=== PATIENT | male | born 1955 | race Caucasian/White ===

== ENCOUNTER 2019-07-02 00:57 | Emergency (ER) | payer OTHER, SELFPAY ==
[2019-07-02 00:58] VITALS: BP 152/104; PULSE 125; RESP 16; TEMP 37.1; O2SAT 94; BMI 28.5
[2019-07-02 01:09] VITALS: O2SAT 82
--- NOTE | 2019-07-02 01:09 | ED.RN ---
PT PULSE OX DROPS TO 82-84% ON ROOM AIR WHEN FALLS ASLEEP. PT PLACED ON O2 2L VIA NC
--- NOTE | 2019-07-02 01:29 | ED.RN ---
THIS NURSE AND DR HIDALGO IN THE ROOM SPEAKING WITH THE PT. PT REFUSING TREATMENT.
[2019-07-02 01:53] VITALS: O2SAT 94
--- NOTE | 2019-07-02 01:53 | ED.RN ---
PT IN THE ROOM. PT CONTINUES TO REFUSE TREATMENT. PT REQUESTING TO LEAVE. PT STATES YOU KILLED MY FAMILY. I DON'T TRUST ANYONE EXCEPT [facility]. I DON'T WANT TO BE HERE. PT REMOVED FROM OXYGEN PER DR HIDALGO REQUEST
--- NOTE | 2019-07-02 01:54 | ED.DCSUM_ITS ---
History of Present Illness Chief Complaint: Confusion Informant: Patient, Family Narrative: Stated he was seen in urgent care today and diagnosed with a bronchitis. He was given doxycycline and prednisone. He has started these. He was found in a gas station parking lot sleeping in his car. He denies any complaints at this time. He did take some narcotic pain pills and seemed confused so they brought him in for evaluation. He denies any headache fevers or chills. Initially his pulse o x was below 90. Past Medical History - Allergies and Home Meds Allergies/Adverse Reactions: Allergies Unable to Assess Allergy (Verified 07/02/19 01:09) Primary Care Physician: Susie Betancourt MD [Primary Care Provider] - Prior records reviewed: Yes Past Medical History: - - Bronchitis, tobacco abuse Surgical History: noncontributory Lives: With Family Smoking Status: Current some day smoker Alcohol: None Drugs: None Review of Systems General: Denies: Chills, Fever, Sweats Eyes: Denies: Visual changes - bilaterally, Diplopia ENT: Denies: Rhinorrhea, Sore throat Cardiovascular: Denies: Chest pain, Palpitations Respiratory: Reports: Cough. Denies: Dyspnea, Dyspnea on exertion Gastrointestinal: Denies: Abdominal pain, Nausea, Vomiting, Diarrhea, Melena, Hematochezia Genitourinary: Denies: Dysuria, Hematuria, Frequency Musculoskeletal: Denies: Back pain, Extremity Pain Skin: Denies: Rash, Wounds Neurological: Denies: Headache, Weakness, Numbness Physical Exam Vital Signs/Narrative: Vital Signs Temp Pulse Resp BP Pulse Ox 07/02/19 01:53 94 07/02/19 01:09 82 07/02/19 00:58 98.7 F 125 H 16 152/104 H 94 General: Well nourished, Well developed, No Acute Distress Head: Normocephalic, Atraumatic Eyes: Perrl, EOMI ENT: Moist mucous membranes, No rhinorrhea Neck: Supple, Nontender Cardiovascular: Regular rate, Regular rhythm, No murmurs Respiratory: No distress, Chest nontender, Wheezing Abdomen: Soft, Nontender, Nondistended, Normal bowel sounds Back: Nontender, Normal Inspection Extremities: Nontender, No edema Skin: Normal color, No rash Neurological: Alert, Oriented x3, Cranial nerves II-XII grossly intact, Normal Strength, Normal Sensation Psychological: Normal affect, Normal Mood Diagnostic/Tx/Re-eval - Medical Decision Making Lab work and chest x-ray ordered. The patient does not want these. He wants to go home and continue his treatment for his asthmatic or COPD bronchitis. He understands the risk of doing so. His is here. He would like to be discharged. He was signed out AGAINST MEDICAL ADVICE. Repeat pulse ox is 94%. ED Disposition - Plan for ED Patient: Disposition: Against Medical Advice Diagnosis: COPD exacerbation Instructions: What Is COPD? Referrals: Susie Betancourt MD [Primary Care Provider] -
[2019-07-02 01:58] VITALS: BP 152/104; PULSE 125; RESP 16; TEMP 37.1; O2SAT 92
--- NOTE | 2019-07-02 02:05 | ED.RN ---
PT REFUSING ALL TREATMENT
== END 2019-07-02 02:10 | disposition left against medical advice (07) ==
PROVIDERS: Emergency Provider Emergency Medicine; Family Provider Internal Medicine; PCP Internal Medicine
DX: J44.1 Chronic obstructive pulmonary disease with (acute) exacerbation (principal); F17.200 Nicotine dependence, unspecified, uncomplicated; Z53.29 Procedure and treatment not carried out because of patient's decision for other reasons
CPT/HCPCS: 94760; 99281

== ENCOUNTER 2023-01-01 15:59 | Inpatient (IN) | payer OTHER, MEDICARE, SELFPAY ==
[2023-01-01 16:01] VITALS: BP 133/93; PULSE 121; RESP 16; TEMP 36.6; O2SAT 98
[2023-01-01 16:08] VITALS: BMI 24.4
--- NOTE | 2023-01-01 16:13 | EKG12_ITS ---
Test Reason : Blood Pressure : / mmHG Vent. Rate : 085 BPM Atrial Rate : 085 BPM P-R Int : 176 ms QRS Dur : 090 ms QT Int : 400 ms P-R-T Axes : 052 -23 052 degrees QTc Int : 476 ms Normal sinus rhythm with sinus arrhythmia Normal ECG Confirmed by DANTE FENG, NIKA ([id number]), office services associate BERTHA FELIZ ([id number]) on 01/02/2023 10:40:40 AM Referred By: Confirmed By:NIKA HOWELL MD
--- NOTE | 2023-01-01 16:18 | EDS_ITS ---
HPI History of Present Illness Chief Complaint: General Illness Detail of Chief Complaint: Stool, weakness, no p.o. intake for 1 to 2 weeks Informant: patient and spouse/S.O. Onset/Context/Timing Onset: Weeks Context: - (Uncertain) Timing: Continuous Quality: Generalized symptoms and complaints Location: Patient has apparent liver disease since he is jaundiced Current Severity: Unable to determine. Please read HPI narrative Maximum Severity: Please read HPI narrative Worsened by: Patient states he stopped drinking 1.5 weeks ago Relieved by: Nothing Associated Symptoms Associated Symptoms: Multiple generalized symptoms Narrative Narrative: Patient is a 67-year-old male who has history of hypertension. Does not know the name of his medication. does not know the name of his medicine. He did drink alcohol. He has not had a drink in 1.5 weeks. states he has not anything to eat or drink for 1 to 2 weeks. He feels weak. He endorses thirst. He endorses dry mouth. He states his urine is dark and concerned there is blood. He also reports black stool. He has been vomiting but states it is clear. He is not on an antithrombotic or anticoagulant. He does endorse bruising easily. He denies bleeding of his gums. He denies headache, visual, ocular auditory symptoms. He denies chest pain or shortness of breath. Denies orthopnea. He denies discomfort with urination. states he has been confused and not responding quickly. states he sees Dr. Betancourt every 3 months. Prior similar symptoms: No Recent Illness/Hospitalization: No [facility] Medical History Hypertension Home Medications Unobtainable 07/02/19 [History Last Taken Unknown] Allergy/AdvReac Type Severity Reaction Status Date / Time Unable to Assess Allergy Verified 07/02/19 01:09 Social History (Updated 01/01/23 @ 16:[address] Ermias Baker MD) household members: spouse Smoking Status: Current some day smoker tobacco type: cigarettes alcohol intake: current ROS ROS ED Review of Systems ROS Unobtainable: due to mental status Constitutional Constitutional ED: Reports weight loss and other Details: He is uncertain how much weight he is lost. His pants are loose and he has tightened his belt 1-2 loops ; Denies chills or fever(s) Eyes Eyes: Denies blurry vision, change in vision or diplopia ENT ENT ED: Denies ear pain, rhinorrhea or sore throat Cardiovascular Cardiovascular: Denies chest pain, orthopnea, palpitations, paroxysmal nocturnal dyspnea or racing heartbeat Respiratory/Chest Respiratory/Chest: Denies cough, dyspnea, dyspnea on exertion, orthopnea or paroxysmal nocturnal dyspnea Gastrointestinal Gastrointestinal: Reports melena, nausea and vomiting; Denies abdominal pain or constipation Genitourinary Genitourinary ED: Reports hematuria; Denies dysuria or urinary frequency Musculoskeletal Musculoskeletal: Denies arthralgias, back pain, myalgias or neck pain Integumentary Denies abscess, Abrasions or rash Neurologic Neurologic: Denies headache(s), paresthesias or weakness Psychiatric Psychiatric: Denies anxiety or depression Endocrine Endocrinology: Denies cold intolerance or heat intolerance Hematologic/Lymphatic Hematologic/Lymphatic: Reports easy bleeding and easy bruising EXAM Physical Exam Const Vital Signs: 01/01/23 16:01 01/01/23 16:08 Temperature 97.8 F Temperature Source Temporal Pulse Rate 121 H Respiratory Rate 16 Respiratory Effort Normal Non-Labored Respiratory Pattern Normal Blood Pressure 133/93 H Blood Pressure Mean 106 Pulse Ox 98 Oxygen Delivery Method Room Air Positive well developed and cachectic Constitutional Narrative: Patient is not alert or awake. He is not oriented either. Patient appears ill. Patient is jaundiced. General Appearance ED: well developed and cachectic; Negative for cyanotic, diaphoretic or NAD Nutritional Appearance: cachectic HEENT Reports dry mucous membranes HEENT Narrative: Head is atraumatic normocephalic. Ears are normal. TMs are normal. Nares patent. Posterior pharynx is normal. Mouth ED: Yes dry mucous membranes Mouth: dry mucous membranes Eyes PERRL and EOMs intact bilaterally General Eye ED: Yes pale conjunctiva and scleral icterus Neck no lymphadenopathy, supple and no JVD Chest Wall inspection of chest normal and palpation of chest normal Resp normal respiratory effort and clear to auscultation bilaterally Cardio regular rhythm, S1 normal heart sound, S2 normal heart sound and no murmurs Rate: tachycardic GI normal to inspection, nondistended, normoactive bowel sounds, non-tender, non- distended and no masses; Negative for hepatosplenomegaly GI Narrative: Stool is black and sticky Auscultation: hypoactive bowel sounds Palpation: soft Back/Spine no CVA tenderness Thoracic Spine / Upper Back: Negative for thoracic spinal tenderness Lumbar Spine / Lower Back: Negative for lumbar spinal tenderness Extremity normal to inspection Neuro No oriented x3, CN's II-XII intact bilaterally and no sensory deficits noted Sensorium / Orientation: Negative for alert Psych Mood & Affect: depressed Skin General Skin Exam: jaundice MDM MDM MDM Narrative Medical decision making narrative: Patient with liver disease. Concern he may have liver failure with coagulo diann. PT/INR was obtained. Hepatic panel was obtained. CBC was obtained to assess white count as well as H&H and platelet count. Basic metabolic panel was obtained to assess glucose, renal function and electrolytes. Since patient has melena he was typed and screened. Clinically appears dehydrated and is tachycardic and was ordered 1 L of normal saline. Patient and spouse were told he will require admission to the hospital. Patient received 80 mg of Protonix IV bolus for GI bleed. Dr. Spear who is on- call for GI was paged for consultation and the hospitalist was paged for admission. History & Record Review Discussion w/independent historian: Patient and Significant other Lab Data Attestation: I reviewed the patient's lab results. Lab results narrative: White count is slightly elevated. H&H is unremarkable. Platelet count is marli l. Differential is unremarkable. PT/INR and PTT are all elevated. Patient is not on anticoagulant. Total bili is 22.5 with a direct bili of 18.18. AST and ALT are 158 and 85 respectively. Ammonia is less than 10. Albumin is 1.6. Labs: Laboratory Results - last 24 hr 01/01/23 01/01/23 16:20 Unknown WBC 12.3 H RBC 3.87 L Hgb 13.5 Hct 38.1 L MCV 98.4 H MCH 34.9 H MCHC 35.4 RDW Std Deviation 65.4 H RDW Coeff of Marla 18.2 H Plt Count 354 MPV 10.5 Immature Gran % (Auto) 1.100 H Neut % (Auto) 83.0 H Lymph % (Auto) 7.5 L [place] % (Auto) 7.9 Eos % (Auto) 0.3 Baso % (Auto) 0.2 Absolute Neuts (auto) 10.2 H Absolute Lymphs (auto) 0.92 Nucleated RBC % 0 Differential Comment SCANNED Anisocytosis 1+ Target Cells 1+ Crenated Cell RARE PT 34.3 H INR 3.3 APTT 55.0 H Sodium 136 Potassium 3.0 L Chloride 101 Carbon Dioxide 27.0 Anion Gap 8 BUN 17 Creatinine 1.09 Estim Creat Clear Calc 62.33 Est GFR (MDRD) Af Amer 87 Est GFR (MDRD) Non-Af 72 BUN/Creatinine Ratio 15.6 Glucose 135 H Lactic Acid 2.5 H* Calcium 9.5 Total Bilirubin 22.50 H* Direct Bilirubin 18.18 H AST 158 H ALT 85 H Alkaline Phosphatase 287 H Ammonia < 10.0 L Total Protein 5.9 L Albumin 1.6 L Globulin 4.3 H Lipase < 10 L Blood Type O NEGATIVE Antibody Screen NEGATIVE Radiography Diagnostic Testing: Clinical Impression(s) from Imaging Studies Brain CT 01/01/23 17:31 IMPRESSION: No acute intracranial hemorrhage or mass effect. Electronically Signed: Billy Moore (Brooks), at 18:01 EDT Reading Location ID and State: [facility] / [place] , Service support , CT of the head was independently reviewed by me and there is no evidence of intracranial bleed i.e. subdural, epidural hematoma, traumatic subarachnoid hemorrhage or intraparenchymal contusion. Hospitalist has been repaged for admission. Will discuss appropriate unit to be admitted to. Treatment and Re-Evaluation :: Patient's history physical and laboratory studies were discussed with Dr. Spear. He agreed with Protonix and vitamin K. He also requested 1 g of Rocephin and octreotide infusion. He also requested CT of the head to assess for any brain edema. He states with acute alcoholic hepatitis the ammonia level may be misleading. Spoke with the hospitalist. Hospitalist would like the results of the CAT scan prior to admitting. If there is intracranial bleed patient will will require transfer. If there is no intracranial bleed she will admit to the hospital. Critical Care Time Critical Care Time: Yes Critical care time (excluding procedures): 30-74 minutes (33) and Including time spent: (History, physical, documentation, review of prior results, interpretation lab results initiation of therapy, consultation with GI and hosp italist) Discharge Plan Triage Chief Complaint: General Illness ED Provider: Baker,Ermias Dx/Rx/DC Orders Clinical Impression: GI bleed, Coagulopathy, Jaundice, Acute liver failure, Acute hypokalemia, Acidosis, lactic, Acute alteration in mental status, Sinus tachycardia, Hypoalbuminemia Prescriptions: No Action Unobtainable Primary Care Provider: Susie Betancourt Referrals: Susie Betancourt MD [Primary Care Provider] -
[2023-01-01] MEDS: 0.9% Normal Saline 1,000 ML 1000 ML IV (16:30)
[2023-01-01 16:40] LABS: Absolute Lymphocyte Count 0.92 X10^3/uL (0.83-4.51); Absolute Neutrophil Count 10.2 X10^3/uL (2.0-7.7); Basophil# 0.03 X10^3/uL; Basophil% 0.2 % (0-1); Eosinophil# 0.04 X10^3/uL; Eosinophils% 0.3 % (0-5); Hematocrit 38.1 % (40-54); Hemoglobin 13.5 g/dL (13.0-16.5); Lymphocyte # 0.92 X10^3/ul (0.83-4.51); Lymphocyte % 7.5 % (19-41); Mean Corp Hgb Conc 35.4 g/dL (32-36); Mean Corpuscular Hgb 34.9 pg (27.0-32.0); Mean Corpuscular Volume 98.4 fL (80-94); Mean Platelet Vol. 10.5 fl (6.2-12.0); Monocyte# 0.97 X10^3/uL; Monocyte% 7.9 % (0-10); NRBC Flagged by Analyzer 0 % (0-5); Neutrophil # 10.23 X10^3/uL (2.7-7.7); POSITIVE MORPHOLOGY YES; Platelet Count 354 K/mm3 (150-450); RBC Distribution Width CV 18.2 % (11.6-14.6); RBC Distribution Width SD 65.4 fl (35.1-43.9); Red Blood Count 3.87 M/mm3 (4.6-6.2); White Blood Count 12.3 K/mm3 (4.4-11.0)
[2023-01-01 16:48] LABS: Differential Indicated SCAN CRITERIA MET
[2023-01-01 16:54] LABS: International Normalized Ratio 3.3; Prothrombin Time (Protime)PT. 34.3 SECONDS (11.7-14.9)
[2023-01-01 17:17] LABS: Anisocytosis 1+; Crenated RBC RARE; Differential Comment SCANNED; Target Cells 1+
[2023-01-01 17:23] LABS: AST(SGOT) 158 U/L (15-37); Alanine Aminotransfer ALT/SGPT 85 U/L (16-61); Albumin, Serum 1.6 g/dL (3.2-5.0); Alkaline Phosphatase 287 U/L (45-117); Anion Gap 8 (5-15); BUN 17 mg/dL (7-18); BUN/Creat Ratio 15.6 RATIO (10-20); Bilirubin, Direct 18.18 mg/dL (0.00-0.30); Calcium,Total 9.5 mg/dL (8.5-10.1); Chloride 101 mmol/L (98-107); Creatinine, Serum 1.09 mg/dL (0.70-1.30); EST Glomerular Filtration Rate 72 mL/min (>60); Est Glom Filt Rate - Afr Amer 87 mL/min (>60); Estimated Creatinine Clearance 62.33 ml/min; Globulin 4.3 g/dL (2.2-4.2); Glucose 135 mg/dL (74-106); Lactic Acid 2.5 mmol/L (0.4-1.9); Lipase < 10 U/L (13-75); Protein, Total 5.9 g/dL (6.4-8.2); Sodium Level 136 mmol/L (136-145)
[2023-01-01 17:24] LABS: Ammonia < 10.0 umol/L (11-32)
--- NOTE | 2023-01-01 17:31 | CT_ITS ---
STUDY: CT BRAIN WITHOUT CONTRAST REASON FOR EXAM: Male, 67 years old. Lethargy, confusion RADIATION DOSAGE (If Supplied By Facility): CTDIvol = ( 44.99 ) mGy, DLP = ( 796.11 ) mGycm TECHNIQUE: Transaxial CT imaging of the brain was performed without administration of intravenous contrast material. Individualized dose optimization techniques were used for this CT. COMPARISON: No relevant priors. FINDINGS: Normal soft tissue structures. Normal calvarium. There is mild cerebral atrophy with widening of the extra-axial spaces and ventricular dilatation. Normal white matter tracts of the cerebral hemispheres. Normal basal ganglia and thalami. Normal brainstem. Normal cerebellum. There is no intracranial hemorrhage. There are no findings of an acute ischemic infarction. Normal visualized paranasal sinuses. CT/Brain/Head without Contrast IMPRESSION: No acute intracranial hemorrhage or mass effect. Electronically Signed: Billy Moore (Brooks), at 18:01 EDT ,
--- NOTE | 2023-01-01 18:01 | PCM.HP.STD ---
HPI - General General Date of Admission: 01/01/23 Date of Service: 01/01/23 Chief Complaint: Generalized weakness HPI Narrative TAYLOR JASMINE, is a 67 M who presented to emergency department [facility] on 01/01/2023 complaining of generalized weakness with decreased p.o. intake. The patient is a poor historian and his helps some but she is not a great historian either. Evidently the patient had been taking care of his aunt consistently and she about 2 months ago at which time he started drinking heavily. He is not a heavy drinker prior to this. His does not think he has had anything in about 1-1/2 to 2 weeks and the patient is adamant that he has not had anything in that time. As well. He is also not been eating or drinking and has had significant weight loss with extremely poor intake in the last 2 weeks. He states he feels extremely weak and endorses thirst and dry mouth but states he is not hungry. His urine has been very dark and he reported some black stool. He had been vomiting but there does not appear to be any blood or coffee grounds in his stool. He is not on any blood thinners and states he has a history of hypertension but is unsure of what medications he is on. He has been bruising more easily but denies any bleeding that is been significant. He denies chest pain or shortness of breath, abdominal pain however with palpation he is tender across his upper abdomen. His states that he has been confused and response times have been slow. Vital signs on presentation show a temperature of 97.8, blood pressure is 133/98, heart rate 121, blood pressure 16, oxygen saturations are 98% on room air. CBC shows a mild leukocytosis with a white count of 12.3. His hemoglobin is normal at 13.5 but he does have a macrocytosis. His platelets are normal at 354,000. He does have a left shift with an 83.0% neutrophilia. Coags are markedly abnormal with an elevated PTT at 34.3/INR 3.3/PTT 55 seconds. Chemistry panel shows hypokalemia with a potassium of 3.0. His renal function is normal. His glucose is 135. His liver enzymes are markedly abnormal with a total bilirubin of 22.5 and a direct bilirubin of 18.18. His AST is 158 and ALT is 85. His alk phos is 287. Ammonia is less than 10 and his lactic acid is 2.5. Lipase is less than 10. His urine is not consistent with infection. CT of the brain is unremarkable for any acute findings. Tylenol level is pending. Case was discussed with gastroenterology and they recommended starting him on IV Solu-Medrol for suspected alcoholic hepatitis and N-acetylcysteine for possible ischemic hepatitis, give vitamin K x1 dose and start octreotide and Protonix drips. [facility] Medical History (Updated 01/01/23 @ 19:[address] Hazel Rodas, ) Hypertension Tobacco abuse Home Medications Unobtainable 07/02/19 [History Last Taken Unknown] Allergy/AdvReac Type Severity Reaction Status Date / Time Unable to Assess Allergy Verified 07/02/19 01:09 unable to obtain unable to obtain Social History (Updated 01/01/23 @ 19:[address] Hazel Rodas, ) household members: spouse housing: house Smoking Status: Current some day smoker tobacco type: cigarettes alcohol intake: current details: 1/2 L daily up until 2 weeks ago substance use type: does not use Vital Signs Vital Signs Vital Signs: 01/01/23 16:01 01/01/23 16:08 Temperature 97.8 F Temperature Source Temporal Pulse Rate 121 H Respiratory Rate 16 Respiratory Effort Normal Non-Labored Respiratory Pattern Normal Blood Pressure 133/93 H Blood Pressure Mean 106 Pulse Ox 98 Oxygen Delivery Method Room Air Weight Weight: 70.6 kg Body Mass Index (BMI) 24.4 Physical Exam Const alert and no apparent distress; Negative for oriented x3, healthy appearing or well nourished Constitutional Narrative: Upper middle-aged, white male, sitting up in bed, markedly jaundiced, appears comfortable at this time, at bedside, patient with some intermittent confusion but is currently alert and oriented to self and place and partially to time, he told me it was 2006 when asked for what year was General Appearance: cooperative HEENT normocephalic, head/scalp atraumatic and hearing grossly normal bilaterally; Negative for moist oral mucous membranes, oropharynx normal or dentition normal HEENT Narrative: Buccal mucosa with significant jaundice, oropharynx is dry with dry lips, dentition is poor, Mallampati is 2-3 Eyes PERRL, EOMs intact bilaterally and conjunctivae normal Eyes Narrative: Positive scleral icterus Neck no lymphadenopathy, supple, no JVD and no carotid bruits Neck Narrative: Trachea midline, no thyroid enlargement Resp normal respiratory effort, no retractions, no use of accessory muscles and clear to auscultation bilaterally Resp Narrative: Diffusely diminished but clear Auscultation: Negative for rales, rhonchi or wheezes Cardio regular rate, regular rhythm, S1 normal heart sound, S2 normal heart sound, no murmurs, no rub, no gallops and no clicks GI normal to inspection, nondistended, normoactive bowel sounds and soft to palpation GI Narrative: Diffuse tenderness with being most marked in the right upper quadrant and epigastrium area Extremity no clubbing, cyanosis or edema Extremity Narrative: Pedal pulses are 2+ Skin no rashes or lesions noted, No no wounds, No skin turgor normal, No no jaundice, no petechiae and no mottling Skin Narrative: Skin tenting noted indicating abnormal turgor, patient is markedly jaundiced Neuro No oriented x3, CN's II-XII intact bilaterally and moves all extremities Neuro Narrative: Marked generalized weakness noted Sensorium / Orientation: awake, alert, oriented to person and oriented to place Speech: speech normal Psych Psych Narrative: Affect is flat however eye contact is good and patient does not appear to be depressed Results Lab / Micro Data 01/01/23 16:20 01/01/23 16:20 Labs: Laboratory Results - last 24 hr 01/01/23 16:20: WBC 12.3 H, RBC 3.87 L, Hgb 13.5, Hct 38.1 L, MCV 98.4 H, MCH 34.9 H, MCHC 35.4, RDW Std Deviation 65.4 H, RDW Coeff of Marla 18.2 H, Plt Count 354, MPV 10.5, Immature Gran % (Auto) 1.100 H, Neut % (Auto) 83.0 H, Lymph % (Auto) 7.5 L, [place] % (Auto) 7.9, Eos % (Auto) 0.3, Baso % (Auto) 0.2, Absolute Neuts (auto) 10.2 H, Absolute Lymphs (auto) 0.92, Nucleated RBC % 0, Differential Comment SCANNED, Anisocytosis 1+, Target Cells 1+, Crenated Cell RARE, PT 34.3 H, INR 3.3, APTT 55.0 H, Sodium 136, Potassium 3.0 L, Chloride 101, Carbon Dioxide 27.0, Anion Gap 8, BUN 17, Creatinine 1.09, Estim Creat Clear Calc 62.33, Est GFR (MDRD) Af Amer 87, Est GFR (MDRD) Non-Af 72, BUN/Creatinine Ratio 15.6, Glucose 135 H, Lactic Acid 2.5 H*, Calcium 9.5, Total Bilirubin 22.50 H*, Direct Bilirubin 18.18 H, AST 158 H, ALT 85 H, Alkaline Phosphatase 287 H, Total Protein 5.9 L, Albumin 1.6 L, Globulin 4.3 H, Lipase < 10 L, Blood Type O NEGATIVE, Antibody Screen NEGATIVE 01/01/23 : Ammonia < 10.0 L Assessment & Plan Assessment/Plan (1) Acidosis, lactic: (2) Acute hypokalemia: (3) Alcoholic hepatitis: (4) Coagulopathy: (5) Jaundice: (6) Sinus tachycardia: (7) Hyperbilirubinemia: (8) Alcohol abuse: PLAN: Plan Acute hepatitis -Etiology is unclear at this time -Suspect alcohol with pattern of liver enzymes and marked bilirubin elevation -Start 40 mg of Solu-Medrol daily as Madrey score is extremely high -Check Tylenol level -Check acute hepatitis panel -CT of the abdomen pelvis is pending -GI consultation Marked hyperbilirubinemia -See above Possible GI bleed -Guaiac was not able to be performed and hemoglobin is normal -Low suspicion overall however will start empiric octreotide and Protonix for now per GI discussion -Start ceftriaxone as there is some concern that he may have cirrhotic liver with possible GI bleed -If no bleeding identified can probably discontinue Lactic acidosis -Suspect related to dehydration and liver dysfunction -Mildly elevated 2.5 -IV fluids and trend Coagulopathy -INR is 3.3 -Probably multifactorial with liver and nutritional issues -Vitamin K 10 mg given in the emergency department IV -Repeat lab at 10 PM per GI instruction for INR -Repeat INR in a.m. Sinus tachycardia -Suspect related dehydration -Appears to be trending down with IV fluids -Continue to monitor on telemetry Acute hypokalemia -40 mill colons p.o. potassium given -Repeat lab in a.m. -Check a.m. magnesium level Hypertension -Reported history of hypertension -Med rec has not been completed so I am unclear what medications he is on at home and will restart as we are aware -As needed hydralazine for systolic greater than 160 Alcohol abuse -Patient is adamant that he has not had any alcohol in the last 1-1/2 weeks -We will start thiamine 200 mg p.o. twice daily -Folic acid daily -Monitor for any signs of worsening withdrawal but will hold off on any medication at this time DVT prophylaxis -SCDs -If no bleeding identified go ahead and start Lovenox CODE STATUS Full code Charges/Coding Visit Charges Inpatient E&M: 47880 Init Hosp L3
[2023-01-01] MEDS: 0.9% Normal Saline 1,000 ML 150 ML IV (18:08)
[2023-01-01 18:09] LABS: Bacteria 0 SEEN /hpf (None Seen); Mucous, Urine 0 SEEN /hpf (<or=2+); Squamous Epithelial Cells - UA 0 SEEN /hpf (0-5)
[2023-01-01 18:15] LABS: Color, Urine Yellow (Yellow); Glucose, Dipstick Normal (Normal); Ketone-Dipstick 5 mg/dl (Negative); Leukocyte Esterase-Dipstick 25 /ul (Negative); Nitrite-Dipstick Negative (Negative); Occult Blood-Urine 50 /ul (Negative); Protein-Dipstick 30 mg/dl (Negative); Specific Gravity, Urine 1.015 (1.002-1.030); Urine Clarity Sl. Cloudy (Clear); Urine Urobilinogen 8 mg/dl (Normal)
[2023-01-01 18:17] VITALS: BP 120/66; PULSE 90; RESP 19; TEMP 36.6
[2023-01-01 18:17] LABS: Urine Bilirubin Dipstick 6 mg/dL (Negative)
[2023-01-01 18:23] LABS: White Blood Cells 0-5 SEEN /hpf (0-5)
[2023-01-01 18:24] LABS: Red Blood Cells-Urine 5-10 SEEN /hpf (0-5)
[2023-01-01 18:25] LABS: Amorphous Sediment 1+; Hyaline Cast 0-5 SEEN /lpf (0-5)
[2023-01-01 18:54] VITALS: BP 120/90; PULSE 97; RESP 17; TEMP 35.8; O2SAT 94; BMI 24.3
[2023-01-01] MEDS: 0.9% Normal Saline 1,000 ML 75 ML IV (20:17)
[2023-01-01] MEDS: Potassium Chloride Oral Tablet 20 MEQ 60 MEQ PO (20:17)
[2023-01-01 20:30] LABS: Reflex Lactate? Y
[2023-01-01 20:57] LABS: Acetaminophen (Tylenol) Level < 2.0 ug/mL (10.0-30.0)
--- NOTE | 2023-01-01 21:00 | CT_ITS ---
INDICATION: acute hepatitis EXAMINATION: CT Abdomen And Pelvis W/ Contrast Injection TECHNIQUE: Helically acquired images were obtained of the abdomen and pelvis after IV contrast. A radiation dose optimization technique was used for this scan. IV Contrast dosage and agent: Oral and amp; IV Gastrografin and amp; 100mL Isovue-370 Oral contrast: None. COMPARISON: None. FINDINGS: Visualized lung bases: Bibasilar atelectasis. Liver: Diffusely hypodense consistent with fatty liver. Gallbladder: Unremarkable Spleen: Unremarkable Pancreas: Fatty atrophic changes. Adrenal Glands: Unremarkable Kidneys: Unremarkable Vasculature: Moderate aortoiliac atherosclerotic disease. GI Tract: Scattered colonic diverticula. There is mild circumferential bowel wall thickening involving most of the colon as well as a few small bowel loops. Large hiatal hernia. Lymphadenopathy: None Peritoneum: Mild volume ascites. Bladder: Unremarkable Reproductive organs: Unremarkable Bones/Soft tissues: Mild scattered degenerative changes of the visualized spine. CT/Abdomen/Pelvis WITH Contrast IMPRESSION: Findings suspicious for infectious versus inflammatory enterocolitis. Marked hepatic steatosis. Large hiatal hernia. Small volume ascites. Electronically Signed: Brian Shipman MD at 21:45 EDT ,
[2023-01-01] MEDS: cloNIDine HCl 0.1 MG Tablet PO (21:29)
[2023-01-01] MEDS: Thiamine Hydrochloride 100 MG Tablet 200 MG PO (21:29)
[2023-01-01] MEDS: Contrast Allergy Safety Check IV (21:30)
[2023-01-01 22:25] VITALS: O2SAT 94
[2023-01-01 22:51] LABS: Prothrombin Time (Protime)PT. 22.9 SECONDS (11.7-14.9)
[2023-01-01 22:58] LABS: Lactic Acid 1.6 mmol/L (0.4-1.9)
[2023-01-02] VITALS (7 sets, daily range): BP systolic 110–127; BP diastolic 80–104; PULSE 85–108; RESP 16–18; TEMP 35.7–36.7; O2SAT 86–97
[2023-01-02] MEDS: Calcium Carbonate 500 MG Tablet PO (03:53)
[2023-01-02] MEDS: oxyCODONE 5 MG Tablet 10 MG PO ×3 (04:14→19:30)
[2023-01-02] MEDS: Mag Hydrox/Al Hydrox/Simeth 30 ML UDC 15 ML PO (05:17)
[2023-01-02 05:44] LABS: Absolute Lymphocyte Count 0.66 X10^3/uL (0.83-4.51); Absolute Neutrophil Count 9.2 X10^3/uL (2.0-7.7); Basophil# 0.06 X10^3/uL; Basophil% 0.6 % (0-1); Eosinophil# 0.09 X10^3/uL; Eosinophils% 0.8 % (0-5); Hemoglobin 13.9 g/dL (13.0-16.5); Lymphocyte # 0.66 X10^3/ul (0.83-4.51); Lymphocyte % 6.1 % (19-41); Mean Corp Hgb Conc 33.1 g/dL (32-36); Mean Corpuscular Hgb 35.3 pg (27.0-32.0); Mean Corpuscular Volume 106.6 fL (80-94); Mean Platelet Vol. 10.7 fl (6.2-12.0); Monocyte# 0.58 X10^3/uL; Monocyte% 5.4 % (0-10); NRBC Flagged by Analyzer 0.2 % (0-5); Neutrophil # 9.24 X10^3/uL (2.7-7.7); Neutrophil % 85.9 % (47-70); POSITIVE MORPHOLOGY YES; Platelet Count 243 K/mm3 (150-450); RBC Distribution Width CV 18.6 % (11.6-14.6); RBC Distribution Width SD 73.3 fl (35.1-43.9); Red Blood Count 3.94 M/mm3 (4.6-6.2); White Blood Count 10.8 K/mm3 (4.4-11.0)
[2023-01-02 05:53] LABS: Differential Indicated SCAN CRITERIA MET
[2023-01-02 06:36] LABS: Anisocytosis 2+
[2023-01-02 06:38] LABS: ALB/GLOB Ratio 0.3 RATIO (0.9-2.4); AST(SGOT) 143 U/L (15-37); Alanine Aminotransfer ALT/SGPT 79 U/L (16-61); Albumin, Serum 1.4 g/dL (3.2-5.0); Alkaline Phosphatase 255 U/L (45-117); Anion Gap 8 (5-15); BUN 13 mg/dL (7-18); BUN/Creat Ratio 15.3 RATIO (10-20); Calcium,Total 8.3 mg/dL (8.5-10.1); Chloride 106 mmol/L (98-107); Creatinine, Serum 0.85 mg/dL (0.70-1.30); EST Glomerular Filtration Rate 96 mL/min (>60); Est Glom Filt Rate - Afr Amer 116 mL/min (>60); Estimated Creatinine Clearance 79.92 ml/min; Globulin 4.2 g/dL (2.2-4.2); Glucose 131 mg/dL (74-106); Magnesium 2.1 mg/dL (1.6-2.6); Phosphorus 1.2 mg/dL (2.5-4.9); Potassium 3.5 mmol/L (3.5-5.1); Protein, Total 5.6 g/dL (6.4-8.2); Sodium Level 136 mmol/L (136-145); Thyroid Stim Hormone (TSH) 1.01 uIU/mL (0.358-3.74)
[2023-01-02] MEDS: Enoxaparin 40 MG/0.4 ML Syringe SC (08:42)
[2023-01-02] MEDS: diazePAM 5 MG Tablet PO (08:42)
[2023-01-02] MEDS: Thiamine Hydrochloride 100 MG Tablet 200 MG PO ×2 (08:42→22:17)
[2023-01-02] MEDS: cloNIDine HCl 0.1 MG Tablet PO ×2 (08:42→22:17)
[2023-01-02] MEDS: Methylprednisolone Sod Succ 40 MG/ML VIAL IV (08:43)
[2023-01-02] MEDS: 0.9% Normal Saline 1,000 ML 75 ML IV ×2 (08:43→22:17)
[2023-01-02] MEDS: Folic Acid 1 MG Tablet PO (08:43)
[2023-01-02] MEDS: Metoprolol(XL)Succ 50 MG Tablet PO (08:46)
[2023-01-02] MEDS: Ensure Plus High Protein 120 ML LIQUID PO ×3 (08:46→22:17)
[2023-01-02] MEDS: amLODIPine 5 MG Tablet PO (08:47)
[2023-01-02] MEDS: Ceftriaxone 1 GM/50 ML BAG IV (08:47)
--- NOTE | 2023-01-02 09:58 | PN.HOSP_ITS ---
Subjective Subjective Feels little bit improved but otherwise he is much the same as when he came in no issues overnight. Objective Data Objective Data Vital Signs: Vital Signs Temp Pulse Resp BP Pulse Ox O2 Del Method 97.9 F 108 H 16 127/104 H 94 Room Air 01/02/23 08:39 01/02/23 08:46 01/02/23 08:39 01/02/23 08:46 01/02/23 08:39 01/02/23 09:06 Oxygen Delivery Method Room Air Weight: 155 lb 6.814 oz Body Mass Index (BMI) 24.3 Intake & Output: Intake and Output for Last 24 Hours 01/01/23 01/02/23 01/03/23 03:59 03:59 03:59 Intake Total 2339 / 2339 1032.5 / 1032.5 Balance 2339 / 2339 1032.5 / 1032.5 Lab / Micro Data 01/02/23 05:25 01/02/23 05:25 Labs: Laboratory Results - last 24 hr 01/01/23 16:20: WBC 12.3 H, RBC 3.87 L, Hgb 13.5, Hct 38.1 L, MCV 98.4 H, MCH 34.9 H, MCHC 35.4, RDW Std Deviation 65.4 H, RDW Coeff of Marla 18.2 H, Plt Count 354, MPV 10.5, Immature Gran % (Auto) 1.100 H, Neut % (Auto) 83.0 H, Lymph % (Auto) 7.5 L, [place] % (Auto) 7.9, Eos % (Auto) 0.3, Baso % (Auto) 0.2, Absolute Neuts (auto) 10.2 H, Absolute Lymphs (auto) 0.92, Nucleated RBC % 0, Differential Comment SCANNED, Anisocytosis 1+, Target Cells 1+, Crenated Cell RARE, PT 34.3 H, INR 3.3, APTT 55.0 H, Sodium 136, Potassium 3.0 L, Chloride 101, Carbon Dioxide 27.0, Anion Gap 8, BUN 17, Creatinine 1.09, Estim Creat Clear Calc 62.33, Est GFR (MDRD) Af Amer 87, Est GFR (MDRD) Non-Af 72, BUN/Creatinine Ratio 15.6, Glucose 135 H, Lactic Acid 2.5 H*, Calcium 9.5, Total Bilirubin 22.50 H*, Direct Bilirubin 18.18 H, AST 158 H, ALT 85 H, Alkaline Phosphatase 287 H, Total Protein 5.9 L, Albumin 1.6 L, Globulin 4.3 H, Lipase < 10 L, Acetaminophen < 2.0 L, Blood Type O NEGATIVE, Antibody Screen NEGATIVE 01/01/23 18:00: Urine Color Yellow, Urine Clarity Sl. Cloudy, Urine pH 8.0, Ur Specific [place] 1.015, Urine Protein 30 H, Urine Glucose (UA) Normal, Urine Ketones 5 H, Urine Occult Blood 50 H, Urine Nitrite Negative, Urine Bilirubin 6 H, Urine Urobilinogen 8 H, Ur Leukocyte Esterase 25 H, Urine RBC 5-10 SEEN, Urine WBC 0-5 SEEN, Ur Squamous Epith Cells 0 SEEN, Amorphous Sediment 1+, Urine Bacteria 0 SEEN, Hyaline Casts 0-5 SEEN, Urine Mucus 0 SEEN 01/01/23 22:07: PT 22.9 H, INR 2.0, Lactic Acid 1.6 01/01/23 : Ammonia < 10.0 L 01/02/23 05:25: WBC 10.8, RBC 3.94 L, Hgb 13.9, Hct 42.0, MCV 106.6 H D, MCH 35.3 H, MCHC 33.1 D, RDW Std Deviation 73.3 H, RDW Coeff of Marla 18.6 H, Plt Count 243, MPV 10.7, Immature Gran % (Auto) 1.200 H, Neut % (Auto) 85.9 H, Lymph % (Auto) 6.1 L, [place] % (Auto) 5.4, Eos % (Auto) 0.8, Baso % (Auto) 0.6, Absolute Neuts (auto) 9.2 H, Absolute Lymphs (auto) 0.66 L, Nucleated RBC % 0.2, Anisocytosis 2+, Sodium 136, Potassium 3.5, Chloride 106, Carbon Dioxide 22.0, Anion Gap 8, BUN 13, Creatinine 0.85, Estim Creat Clear Calc 79.92, Est GFR (MDRD) Af Amer 116, Est GFR (MDRD) Non-Af 96, BUN/Creatinine Ratio 15.3, Glucose 131 H, Calcium 8.3 L, Phosphorus 1.2 L, Magnesium 2.1, Total Bilirubin 22.50 H*, AST 143 H, ALT 79 H, Alkaline Phosphatase 255 H, Total Protein 5.6 L, Albumin 1.4 L, Globulin 4.2, Albumin/Globulin Ratio 0.3 L, TSH 1.01 Radiography Diagnostic Testing: Radiology Impression Brain CT 01/01/23 17:31 IMPRESSION: No acute intracranial hemorrhage or mass effect. Electronically Signed: Billy Moore (Brooks), at 18:01 EDT , Abdomen/Pelvis CT 01/01/23 21:00 IMPRESSION: Findings suspicious for infectious versus inflammatory enterocolitis. Marked hepatic steatosis. Large hiatal hernia. Small volume ascites. Electronically Signed: Brian Shipman MD at 21:45 EDT , Physical Exam Narrative General: Alert, Oriented x2, Cooperative, No apparent distress HEENT: Atraumatic, PERRLA, EOMI, Normocephalic, scleral icterus Oral: Moist Mucosa Neck: Supple, No JVD Lungs: Diminished, normal air movement, No rhonchi, No wheeze, No rales Cardiovascular: Regular rate, Regular Rhythm, Normal S1, Normal S2, No murmurs Abdomen: Soft, Non Tender, Non-Distended, No Hepato-splenomegaly Extremities: No edema, Capillary Refill Less than 3 Seconds Skin: Jaundiced Musculoskeletal: No Tenderness to Palpation of Joints or Extremities Neurological: Cranial nerves II-XII grossly intact, Motor Exam 5/5 strength throughout, Sensory exam intact to light touch and pain Psych/Mental Status: Flat Assessment & Plan Assessment/Plan (1) Acidosis, lactic: (2) Acute hypokalemia: (3) Alcoholic hepatitis: (4) Coagulopathy: (5) Jaundice: (6) Sinus tachycardia: (7) Hyperbilirubinemia: (8) Alcohol abuse: PLAN: Plan 1. Acute alcoholic hepatitis with elevated hyperbilirubinemia with elevated INR despite being not being on Coumadin ? His last alcohol use was about a week and a half ago ? Bilirubin is elevated to 22 and his LFTs are elevated ? We will consult gastroenterology ? His Maddrey's discrimination function is 68, continue with acetylcysteine, octreotide, steroids ? MELD score is 26 with a 20% 3-month mortality ? Continue with PPI ? If he needs anything for anxiety can use lorazepam 2. HTN ? Blood pressure stable ? Continue with his home blood pressure medications DVT: SCDs Charges/Coding Visit Charges Inpatient E&M: 67583 Subs Hosp L2
--- NOTE | 2023-01-02 10:20 | CASEMGMT ---
RN CECY Face to Face with patient for initial transition planning/care coordination assessment. RN CM introduced self and role at [facility]. Patient lying in bed, alert and oriented. Patient willing to participate in assessment and is able to answer all questions appropriately. Care providers, pharmacy, and demographics verified. Patient wishes to discharge home, denies need for home health at this time. Patient states he has no further needs or concerns at this time. CM to follow for discharge planning needs that may arise. PCP: Serafin Specialists: none Preferred Pharmacy: [facility] Insurance: [employer] Prescription Benefit: yes Living Will/HPOA: none LNOK: Living Arrangements: Patient lives with in a single story home with no steps to enter. Patient is independent at home. Transportation: self, DME/HHC: Patient has shower chair, cane, walker, grab bars. No previous HHC or SNF. Patient states he drinks 3/4 of a pint daily of liquor. Patient denied resources. Disposition Plan: Patient to discharge home with family support and follow-up plans in place. Naheed REYNOSO, RN, CM
[2023-01-02] MEDS: LORazepam 1 MG Tablet PO (17:37)
[2023-01-02] MEDS: 0.9% Saline Lock 10 ML Syringe IV (17:41)
--- NOTE | 2023-01-02 18:47 | CON.PCM.GI_ITS ---
HPI Consult Data Date of Consult: 01/01/23 HPI Narrative Reason for Consultation: Hepatitis HPI Narrative: TAYLOR JASMINE, is a 67 M who presented to emergency department [facility] on 01/01/2023 complaining of generalized weakness with decreased p.o. intake. The patient is a poor historian and his helps some but she is not a great historian either. As per his , the patient had been taking care of his aunt consistently and she about 2 months ago at which time he started drinking heavily. He is not a heavy drinker prior to this. His does not think he has had anything in about 1-1/2 to 2 weeks and the patient is adamant that he has not had anything in that time. He is also not been eating or drinking and has had significant weight loss with extremely poor intake in the last 2 weeks. He states he feels extremely weak and endorses thirst and dry mouth but states he is not hungry. His urine has been very dark and he reported some black stool. He had been vomiting but there does not appear to be any blood or coffee grounds in his stool. He is not on any blood thinners and states he has a history of hypertension but is unsure of what medications he is on. He has been bruising more easily but denies any bleeding that is been significant. Vital signs are normal except for tachycardia. CBC shows a mild leukocytosis with a white count of 12.3. His hemoglobin is normal at 13.5 but he does have a macrocytosis. His platelets are normal at 354,000. Coagulation cascade are markedly abnormal with an elevated PTT at 34.3/INR 3.3/PTT 55 seconds. Chemistry panel shows hypokalemia with a potassium of 3.0. His renal function is normal. His glucose is 135. His liver enzymes are markedly abnormal with a total bilirubin of 22.5 and a direct bilirubin of 18.18. His AST is 158 and ALT is 85. His alk phos is 287. Ammonia is less than 10 and his lactic acid is 2.5. Lipase is less than 10. His urine is not consistent with infection. CT of the brain is unremarkable for any acute findings. Tylenol level is pending. I recommended starting him on IV Solu-Medrol for suspected alcoholic hepatitis and N-acetylcysteine for possible ischemic hepatitis, give vitamin K x1 dose and start octreotide and Protonix drips. [facility] Medical History (Updated 01/01/23 @ 19:[address] Hazel Rodas, DO) Hypertension Tobacco abuse Home Medications alprazolam 1 mg tablet 1 mg PO QHS anxiety 01/01/23 [History Last Taken Unknown] amlodipine 2.5 mg tablet 2.5 mg PO DAILY blood pressure 01/01/23 [History Last Taken Unknown] clonidine HCl 0.1 mg tablet 0.1 mg PO DAILY PRN PRN Hypertension 01/01/23 [History Last Taken Unknown] diazepam 5 mg tablet 5 mg PO DAILY PRN PRN ANXIETY 01/01/23 [History Last Taken Unknown] tramadol 50 mg tablet 100 mg PO Q8H PRN pain 01/01/23 [History Last Taken Unknown] Allergy/AdvReac Type Severity Reaction Status Date / Time bupropion [From Wellbutrin] Allergy Intermediate mental Verified 01/02/23 14:33 status change/memory problems diclofenac Allergy Mild Rash Verified 01/02/23 14:33 gabapentin AdvReac Mild mouth Verified 01/02/23 14:33 iritation and burning sensation lansoprazole [From Prevacid] AdvReac Mild Diarrhea Verified 01/02/23 14:33 clindamycin AdvReac thrush oral Verified 01/02/23 14:33 fentanyl AdvReac Other Verified 01/02/23 14:33 NSAIDS (Non-Steroidal AdvReac Diarrhea Verified 01/02/23 14:33 Anti-Inflamma Family History unable to obtain Surgical History unable to obtain Social History (Updated 01/01/23 @ 19:[address] Hazel Rodas, DO) household members: spouse housing: house Smoking Status: Current some day smoker tobacco type: cigarettes alcohol intake: current details: 1/2 L daily up until 2 weeks ago substance use type: does not use ROS Review of Systems ROS Unobtainable: other Constitutional Constitutional: Denies fatigue, fever(s), poor appetite, weight gain or weight loss ENT HEENT: Denies mouth lesions Cardiovascular Cardiovascular: Denies abdominal bloating, abdominal edema or abdominal pain Respiratory/Chest Respiratory/Chest: Denies change in mental status, change in phlegm color, chest congestion or chest tightness Gastrointestinal Gastrointestinal: Denies belching, bloating, change in bowel habits, change in stool character, chewing difficulty, coffee ground emesis, constipation, cramping, diarrhea, dyspepsia, dysphagia, early satiety, excessive flatus, fecal incontinence, heartburn, hematemesis, hematochezia, hemorrhoids, loose stools, melena, nausea, odynophagia, rectal bleeding, tenesmus, vomiting or weight changes Genitourinary Genitourinary: Denies abdominal discomfort, burning urination or itching Musculoskeletal Musculoskeletal: Reports as per HPI; Denies muscle weakness or myalgias Integumentary Integumentary: Denies jaundice Neurologic Neurologic: Denies lack of coordination or weakness Psychiatric Psychiatric: Denies confusion, depression, memory loss, mood swings, paranoia or suicidal ideation Endocrine Endocrinology: Denies systems reviewed and no addt'l complaints, except as documented Hematologic/Lymphatic Hematologic/Lymphatic: Denies anemia, easy bleeding, easy bruising or lymphadenopathy Allergic/Immunologic Allergic/Immunologic: Denies systems reviewed and no addt'l complaints, except as documented Physical Exam Narrative General: Alert, Oriented x2, Cooperative, No apparent distress HEENT: Atraumatic, PERRLA, EOMI, Normocephalic, scleral icterus Oral: Moist Mucosa Neck: Supple, No JVD Lungs: Diminished, normal air movement, No rhonchi, No wheeze, No rales Cardiovascular: Regular rate, Regular Rhythm, Normal S1, Normal S2, No murmurs Abdomen: Soft, Non Tender, Non-Distended, No Hepato-splenomegaly Extremities: No edema, Capillary Refill Less than 3 Seconds Skin: Jaundiced Musculoskeletal: No Tenderness to Palpation of Joints or Extremities Neurological: Cranial nerves II-XII grossly intact, Motor Exam 5/5 strength throughout, Sensory exam intact to light touch and pain Psych/Mental Status: Flat Lab / Micro Data 01/02/23 05:25 01/02/23 05:25 Labs: Laboratory Results - last 24 hr 01/01/23 16:20: Acetaminophen < 2.0 L 01/01/23 22:07: PT 22.9 H, INR 2.0, Lactic Acid 1.6 01/02/23 05:25: WBC 10.8, RBC 3.94 L, Hgb 13.9, Hct 42.0, MCV 106.6 H D, MCH 35.3 H, MCHC 33.1 D, RDW Std Deviation 73.3 H, RDW Coeff of Marla 18.6 H, Plt Count 243, MPV 10.7, Immature Gran % (Auto) 1.200 H, Neut % (Auto) 85.9 H, Lymph % (Auto) 6.1 L, [place] % (Auto) 5.4, Eos % (Auto) 0.8, Baso % (Auto) 0.6, Absolute Neuts (auto) 9.2 H, Absolute Lymphs (auto) 0.66 L, Nucleated RBC % 0.2, Anisocytosis 2+, Sodium 136, Potassium 3.5, Chloride 106, Carbon Dioxide 22.0, Anion Gap 8, BUN 13, Creatinine 0.85, Estim Creat Clear Calc 79.92, Est GFR (MDRD) Af Amer 116, Est GFR (MDRD) Non-Af 96, BUN/Creatinine Ratio 15.3, Glucose 131 H, Calcium 8.3 L, Phosphorus 1.2 L, Magnesium 2.1, Total Bilirubin 22.50 H*, AST 143 H, ALT 79 H, Alkaline Phosphatase 255 H, Total Protein 5.6 L, Albumin 1.4 L, Globulin 4.2, Albumin/Globulin Ratio 0.3 L, TSH 1.01 Radiology Impression Abdomen/Pelvis CT 01/01/23 21:00 IMPRESSION: Findings suspicious for infectious versus inflammatory enterocolitis. Marked hepatic steatosis. Large hiatal hernia. Small volume ascites. Electronically Signed: Brian Shipman MD at 21:45 EDT , Assessment & Plan Assessment/Plan (1) Acidosis, lactic: (2) Acute hypokalemia: (3) Alcoholic hepatitis: (4) Coagulopathy: (5) Jaundice: (6) Sinus tachycardia: (7) Hyperbilirubinemia: (8) Alcohol abuse: PLAN: Plan 67-year-old with severe cholestatic hepatitis secondary to alcoholic hepatitis. -He has a high Madrey score of 52 and has altered mental status -Start 40 mg of Solu-Medrol daily as Madrey score is extremely high -Check Tylenol level -Check acute hepatitis panel -CT of the abdomen pelvis is pending -After 4 days we will check his Anyi score to see if we will continue on steroids Marked hyperbilirubinemia -See above Possible GI bleed -His hemoglobin seems to be stable. Continue to monitor. I suspect he did have some dark stools that was secondary to alcoholic gastritis and possibly portal gastropathy or portal hypertension Coagulopathy -INR is 3.3 -Probably multifactorial with liver and nutritional issues -Vitamin K 10 mg given in the emergency department IV -I will give another 5 mg dose of vitamin K -Repeat INR in a.m. Guarded prognosis Charges/Coding Visit Charges Inpatient E&M: 15372 Init Hosp L3
[2023-01-03] VITALS (8 sets, daily range): BP systolic 85–121; BP diastolic 62–89; PULSE 61–90; RESP 14–18; TEMP 35.7–36.6; O2SAT 91–98
[2023-01-03] MEDS: oxyCODONE 5 MG Tablet 10 MG PO ×2 (01:58→15:29)
[2023-01-03 06:42] LABS: Absolute Lymphocyte Count 1.04 X10^3/uL (0.83-4.51); Absolute Neutrophil Count 12.5 X10^3/uL (2.0-7.7); Basophil# 0.02 X10^3/uL; Basophil% 0.1 % (0-1); Eosinophil# 0.01 X10^3/uL; Eosinophils% 0.1 % (0-5); Hematocrit 31.9 % (40-54); Hemoglobin 11.3 g/dL (13.0-16.5); Lymphocyte # 1.04 X10^3/ul (0.83-4.51); Lymphocyte % 7.1 % (19-41); Mean Corp Hgb Conc 35.4 g/dL (32-36); Mean Corpuscular Hgb 35.2 pg (27.0-32.0); Mean Corpuscular Volume 99.4 fL (80-94); Mean Platelet Vol. 11.2 fl (6.2-12.0); Monocyte% 6.1 % (0-10); NRBC Flagged by Analyzer 0.2 % (0-5); Neutrophil % 85.3 % (47-70); Platelet Count 262 K/mm3 (150-450); RBC Distribution Width CV 17.7 % (11.6-14.6); RBC Distribution Width SD 63.9 fl (35.1-43.9); Red Blood Count 3.21 M/mm3 (4.6-6.2); White Blood Count 14.7 K/mm3 (4.4-11.0)
[2023-01-03 07:36] LABS: ALB/GLOB Ratio 0.4 RATIO (0.9-2.4); AST(SGOT) 126 U/L (15-37); Alanine Aminotransfer ALT/SGPT 74 U/L (16-61); Albumin, Serum 1.3 g/dL (3.2-5.0); Alkaline Phosphatase 202 U/L (45-117); Anion Gap 7 (5-15); BUN 15 mg/dL (7-18); BUN/Creat Ratio 16.8 RATIO (10-20); Calcium,Total 8.3 mg/dL (8.5-10.1); Chloride 108 mmol/L (98-107); Creatinine, Serum 0.89 mg/dL (0.70-1.30); EST Glomerular Filtration Rate 90 mL/min (>60); Est Glom Filt Rate - Afr Amer 109 mL/min (>60); Estimated Creatinine Clearance 76.33 ml/min; Globulin 3.6 g/dL (2.2-4.2); Glucose 126 mg/dL (74-106); Potassium 3.5 mmol/L (3.5-5.1); Protein, Total 4.9 g/dL (6.4-8.2); Sodium Level 138 mmol/L (136-145)
[2023-01-03 08:15] LABS: International Normalized Ratio 1.3; Prothrombin Time (Protime)PT. 15.7 SECONDS (11.7-14.9)
[2023-01-03 10:09] LABS: HEPATITIS B SURFACE AG Negative (Negative); Hep C Antibodies Non Reactive (Non Reactive); Hepatitis A IgM Antibody Negative (Negative); Hepatitis B Core AB IgM Negative (Negative)
[2023-01-03] MEDS: Thiamine Hydrochloride 100 MG Tablet 200 MG PO ×2 (10:11→21:54)
[2023-01-03] MEDS: Folic Acid 1 MG Tablet PO (10:12)
[2023-01-03] MEDS: cloNIDine HCl 0.1 MG Tablet PO ×2 (10:12→21:54)
[2023-01-03] MEDS: Metoprolol(XL)Succ 50 MG Tablet PO (10:12)
[2023-01-03] MEDS: Methylprednisolone Sod Succ 40 MG/ML VIAL IV (10:12)
[2023-01-03] MEDS: amLODIPine 5 MG Tablet PO (10:13)
[2023-01-03] MEDS: LORazepam 1 MG Tablet PO ×2 (10:40→21:54)
[2023-01-03] MEDS: Ceftriaxone 1 GM/50 ML BAG IV (10:40)
[2023-01-03] MEDS: 0.9% Normal Saline 1,000 ML 75 ML IV (11:24)
--- NOTE | 2023-01-03 11:29 | PCM.PN.HOSP ---
Subjective Subjective Feels a little bit better. Bilirubin is improving, no issues overnight Objective Data Objective Data Vital Signs: Vital Signs Temp Pulse Resp BP Pulse Ox O2 Del Method O2 Flow Rate 97.1 F L 88 14 120/78 92 Room Air 2 01/03/23 09:14 01/03/23 10:12 01/03/23 09:14 01/03/23 10:12 01/03/23 09:14 01/03/23 09:14 01/03/23 07:16 Oxygen Flow Rate (L/min) 2 Oxygen Delivery Method Room Air Weight: 155 lb 6.814 oz Body Mass Index (BMI) 24.3 Intake & Output: Intake and Output for Last 24 Hours 01/02/23 01/03/23 01/04/23 03:59 03:59 03:59 Intake Total 2339 / 2339 4065.49 / 4065.49 1033.75 / 1033.75 Balance 2339 / 2339 4065.49 / 4065.49 1033.75 / 1033.75 Lab / Micro Data 01/03/23 05:33 01/03/23 05:33 Labs: Laboratory Results - last 24 hr 01/01/23 22:07: Hepatitis A IgM Ab Negative, Hep Bs Antigen Negative, Hep B Core IgM Ab Negative, Hepatitis C Ab (EIA) Non Reactive, Hep C Ab Comment Comment 01/03/23 05:33: WBC 14.7 H, RBC 3.21 L, Hgb 11.3 L, Hct 31.9 L, MCV 99.4 H D, MCH 35.2 H, MCHC 35.4 D, RDW Std Deviation 63.9 H, RDW Coeff of Marla 17.7 H, Plt Count 262, MPV 11.2, Immature Gran % (Auto) 1.300 H, Neut % (Auto) 85.3 H, Lymph % (Auto) 7.1 L, [place] % (Auto) 6.1, Eos % (Auto) 0.1, Baso % (Auto) 0.1, Absolute Neuts (auto) 12.5 H, Absolute Lymphs (auto) 1.04, Nucleated RBC % 0.2, Sodium 138, Potassium 3.5, Chloride 108 H, Carbon Dioxide 23.0, Anion Gap 7, BUN 15, Creatinine 0.89, Estim Creat Clear Calc 76.33, Est GFR (MDRD) Af Amer 109, Est GFR (MDRD) Non-Af 90, BUN/Creatinine Ratio 16.8, Glucose 126 H, Calcium 8.3 L, Total Bilirubin 18.40 H*, AST 126 H, ALT 74 H, Alkaline Phosphatase 202 H, Total Protein 4.9 L, Albumin 1.3 L, Globulin 3.6, Albumin/Globulin Ratio 0.4 L 01/03/23 06:51: PT 15.7 H, INR 1.3 Physical Exam Narrative General: Alert, Oriented x2, Cooperative, No apparent distress HEENT: Atraumatic, PERRLA, EOMI, Normocephalic, scleral icterus Oral: Moist Mucosa Neck: Supple, No JVD Lungs: Diminished, normal air movement, No rhonchi, No wheeze, No rales Cardiovascular: Regular rate, Regular Rhythm, Normal S1, Normal S2, No murmurs Abdomen: Soft, Non Tender, Non-Distended, No Hepato-splenomegaly Extremities: No edema, Capillary Refill Less than 3 Seconds Skin: Jaundiced Musculoskeletal: No Tenderness to Palpation of Joints or Extremities Neurological: Cranial nerves II-XII grossly intact, Motor Exam 5/5 strength throughout, Sensory exam intact to light touch and pain Psych/Mental Status: Flat Assessment & Plan Assessment/Plan (1) Acidosis, lactic: (2) Acute hypokalemia: (3) Alcoholic hepatitis: (4) Coagulopathy: (5) Jaundice: (6) Sinus tachycardia: (7) Hyperbilirubinemia: (8) Alcohol abuse: PLAN: Plan 1. Acute alcoholic hepatitis with elevated hyperbilirubinemia with elevated INR despite being not being on Coumadin ? His last alcohol use was about a week and a half ago ? Bilirubin is elevated to 22 and his LFTs are elevated ?Appreciate gastroenterology's assistance ? His Abhaydrcristine's discrimination function is 68, continue with acetylcysteine, octreotide, steroids ? MELD score is 26 with a 20% 3-month mortality ? Continue with PPI ? If he needs anything for anxiety can use lorazepam ? He did receive a dose of vitamin K yesterday his INR today is 1.3 and continue with Rocephin for SBP prophylaxis 2. HTN ? Blood pressure stable ? Continue with his home blood pressure medications DVT: SCDs Charges/Coding Visit Charges Inpatient E&M: 22353 Subs Hosp L2
--- NOTE | 2023-01-03 17:41 | PN.GI_ITS ---
Subjective Subjective Patient is more alert and awake today. He seems to be in better spirits today. Objective Data Objective Data Vital Signs: Vital Signs Temp Pulse Resp BP Pulse Ox O2 Del Method O2 Flow Rate 97.1 F L 62 16 98/79 97 Room Air 2 01/03/23 15:10 01/03/23 15:10 01/03/23 15:10 01/03/23 15:10 01/03/23 15:10 01/03/23 15:10 01/03/23 07:16 Oxygen Flow Rate (L/min) 2 Oxygen Delivery Method Room Air Weight: 155 lb 6.814 oz Body Mass Index (BMI) 24.3 Intake & Output: Intake and Output for Last 24 Hours 01/01/23 01/02/23 01/03/23 23:59 23:59 23:59 Intake Total 1339 / 1339 4966.82 / 4966.82 1483.42 / 1483.42 Balance 1339 / 1339 4966.82 / 4966.82 1483.42 / 1483.42 Lab / Micro Data 01/03/23 05:33 01/03/23 05:33 Labs: Laboratory Results - last 24 hr 01/01/23 22:07: Hepatitis A IgM Ab Negative, Hep Bs Antigen Negative, Hep B Core IgM Ab Negative, Hepatitis C Ab (EIA) Non Reactive, Hep C Ab Comment Comment 01/03/23 05:33: WBC 14.7 H, RBC 3.21 L, Hgb 11.3 L, Hct 31.9 L, MCV 99.4 H D, MCH 35.2 H, MCHC 35.4 D, RDW Std Deviation 63.9 H, RDW Coeff of Marla 17.7 H, Plt Count 262, MPV 11.2, Immature Gran % (Auto) 1.300 H, Neut % (Auto) 85.3 H, Lymph % (Auto) 7.1 L, [place] % (Auto) 6.1, Eos % (Auto) 0.1, Baso % (Auto) 0.1, Absolute Neuts (auto) 12.5 H, Absolute Lymphs (auto) 1.04, Nucleated RBC % 0.2, Sodium 138, Potassium 3.5, Chloride 108 H, Carbon Dioxide 23.0, Anion Gap 7, BUN 15, Creatinine 0.89, Estim Creat Clear Calc 76.33, Est GFR (MDRD) Af Amer 109, Est GFR (MDRD) Non-Af 90, BUN/Creatinine Ratio 16.8, Glucose 126 H, Calcium 8.3 L, Total Bilirubin 18.40 H*, AST 126 H, ALT 74 H, Alkaline Phosphatase 202 H, Total Protein 4.9 L, Albumin 1.3 L, Globulin 3.6, Albumin/Globulin Ratio 0.4 L 01/03/23 06:51: PT 15.7 H, INR 1.3 Physical Exam Narrative General: Alert, Oriented x2, Cooperative, No apparent distress HEENT: Atraumatic, PERRLA, EOMI, Normocephalic, scleral icterus Oral: Moist Mucosa Neck: Supple, No JVD Lungs: Diminished, normal air movement, No rhonchi, No wheeze, No rales Cardiovascular: Regular rate, Regular Rhythm, Normal S1, Normal S2, No murmurs Abdomen: Soft, Non Tender, Non-Distended, No Hepato-splenomegaly Extremities: No edema, Capillary Refill Less than 3 Seconds Skin: Jaundiced Musculoskeletal: No Tenderness to Palpation of Joints or Extremities Neurological: Cranial nerves II-XII grossly intact, Motor Exam 5/5 strength throughout, Sensory exam intact to light touch and pain Psych/Mental Status: Flat Assessment & Plan Assessment/Plan (1) Acidosis, lactic: (2) Acute hypokalemia: (3) Alcoholic hepatitis: (4) Coagulopathy: (5) Jaundice: (6) Sinus tachycardia: (7) Hyperbilirubinemia: (8) Alcohol abuse: PLAN: Plan 1. Acute alcoholic hepatitis with elevated hyperbilirubinemia with elevated INR despite being not being on Coumadin ? His last alcohol use was about a week and a half ago ? Bilirubin is elevated to 22 and his LFTs are elevated ?Appreciate gastroenterology's assistance ? His Maddrey's discrimination function is 68, continue with acetylcysteine, octreotide, steroids ? MELD score is 26 with a 20% 3-month mortality ? Continue with PPI 2. HTN ? Blood pressure stable ? Continue with his home blood pressure medications 01/03: His LFTs are improving with steroid therapy. He will need to calculate a Anyi score on day 5 to see if he will benefit from steroids for 30 days. I gave him another dose of vitamin K yesterday It decrease his INR down to 1.3. He is still on antibiotics and doing well. Autoimmune labs are pending. Continue current work-up. DVT: SCDs
[2023-01-03] MEDS: Mag Hydrox/Al Hydrox/Simeth 30 ML UDC 15 ML PO (20:35)
[2023-01-04] MEDS: oxyCODONE 5 MG Tablet 10 MG PO (01:16)
[2023-01-04 06:29] LABS: Absolute Lymphocyte Count 1.12 X10^3/uL (0.83-4.51); Basophil# 0.03 X10^3/uL; Basophil% 0.2 % (0-1); Eosinophil# 0.02 X10^3/uL; Eosinophils% 0.2 % (0-5); Hematocrit 29.5 % (40-54); Lymphocyte # 1.12 X10^3/ul (0.83-4.51); Lymphocyte % 9.1 % (19-41); Mean Corp Hgb Conc 33.9 g/dL (32-36); Mean Corpuscular Hgb 35.1 pg (27.0-32.0); Mean Corpuscular Volume 103.5 fL (80-94); Mean Platelet Vol. 11.7 fl (6.2-12.0); Monocyte# 0.84 X10^3/uL; Monocyte% 6.9 % (0-10); NRBC Flagged by Analyzer 0.2 % (0-5); Neutrophil # 10.01 X10^3/uL (2.7-7.7); Neutrophil % 81.6 % (47-70); POSITIVE MORPHOLOGY YES; Platelet Count 273 K/mm3 (150-450); RBC Distribution Width SD 67.9 fl (35.1-43.9); Red Blood Count 2.85 M/mm3 (4.6-6.2); White Blood Count 12.3 K/mm3 (4.4-11.0)
[2023-01-04] MEDS: Ensure Plus High Protein 120 ML LIQUID PO ×2 (06:42→21:31)
[2023-01-04] MEDS: LORazepam 1 MG Tablet PO (06:42)
[2023-01-04 06:43] VITALS: BP 96/64; PULSE 60; RESP 18; TEMP 36.2; O2SAT 90
[2023-01-04] MEDS: 0.9% Saline Lock 10 ML Syringe IV ×2 (06:43→21:31)
[2023-01-04 06:50] LABS: Differential Indicated SCAN CRITERIA MET
[2023-01-04 07:09] VITALS: O2SAT 94
[2023-01-04 07:20] LABS: ALB/GLOB Ratio 0.4 RATIO (0.9-2.4); AST(SGOT) 107 U/L (15-37); Alanine Aminotransfer ALT/SGPT 68 U/L (16-61); Albumin, Serum 1.2 g/dL (3.2-5.0); Alkaline Phosphatase 177 U/L (45-117); Anion Gap 5 (5-15); BUN 19 mg/dL (7-18); BUN/Creat Ratio 19.7 RATIO (10-20); Calcium,Total 8.1 mg/dL (8.5-10.1); Chloride 107 mmol/L (98-107); Creatinine, Serum 0.97 mg/dL (0.70-1.30); EST Glomerular Filtration Rate 83 mL/min (>60); Est Glom Filt Rate - Afr Amer 100 mL/min (>60); Estimated Creatinine Clearance 70.04 ml/min; Globulin 3.3 g/dL (2.2-4.2); Glucose 135 mg/dL (74-106); Potassium 3.4 mmol/L (3.5-5.1); Protein, Total 4.5 g/dL (6.4-8.2); Sodium Level 137 mmol/L (136-145)
[2023-01-04] MEDS: Folic Acid 1 MG Tablet PO (08:20)
[2023-01-04] MEDS: Methylprednisolone Sod Succ 40 MG/ML VIAL IV (08:26)
[2023-01-04] MEDS: cloNIDine HCl 0.1 MG Tablet PO (08:30)
[2023-01-04 08:32] VITALS: PULSE 76
[2023-01-04] MEDS: Metoprolol(XL)Succ 50 MG Tablet PO (08:32)
[2023-01-04] MEDS: Ceftriaxone 1 GM/50 ML BAG IV (08:32)
[2023-01-04] MEDS: amLODIPine 5 MG Tablet PO (08:32)
[2023-01-04] MEDS: Pantoprazole Sodium 40 MG Tablet PO (08:32)
--- NOTE | 2023-01-04 08:43 | PCM.PN.HOSP ---
Reason for Visit Reason for Visit: Diagnoses Coagulation defect, unspecified (01/01/23) Other disorders of bilirubin metabolism (01/01/23) Acidosis, unspecified (01/01/23) Hypokalemia (01/01/23) Alcohol abuse, uncomplicated (01/01/23) Alcoholic hepatitis without ascites (01/01/23) Tachycardia, unspecified (01/01/23) Unspecified jaundice (01/01/23) Subjective Subjective Patient resting comfortably in bed, tired, seems slightly confused Objective Data Objective Data Vital Signs: Vital Signs Temp Pulse Resp BP Pulse Ox O2 Del Method O2 Flow Rate 97.2 F L 76 18 96/64 94 Room Air 2 01/04/23 06:43 01/04/23 08:32 01/04/23 06:43 01/04/23 06:43 01/04/23 07:09 01/04/23 07:09 01/03/23 07:16 Oxygen Flow Rate (L/min) 2 Oxygen Delivery Method Room Air Weight: 70.5 kg Body Mass Index (BMI) 24.3 Intake & Output: Intake and Output for Last 24 Hours 01/02/23 01/03/23 01/04/23 23:59 23:59 23:59 Intake Total 4966.82 / 4966.82 1883.42 / 1883.42 314 / 314 Balance 4966.82 / 4966.82 1883.42 / 1883.42 314 / 314 Lab / Micro Data 01/04/23 05:10 01/04/23 05:10 Labs: Laboratory Results - last 24 hr 01/01/23 22:07: Hepatitis A IgM Ab Negative, Hep Bs Antigen Negative, Hep B Core IgM Ab Negative, Hepatitis C Ab (EIA) Non Reactive, Hep C Ab Comment Comment 01/04/23 05:10: WBC 12.3 H, RBC 2.85 L, Hgb 10.0 L, Hct 29.5 L, MCV 103.5 H, MCH 35.1 H, MCHC 33.9, RDW Std Deviation 67.9 H, RDW Coeff of Marla 18.0 H, Plt Count 273, MPV 11.7, Immature Gran % (Auto) 2.000 H, Neut % (Auto) 81.6 H, Lymph % (Auto) 9.1 L, [place] % (Auto) 6.9, Eos % (Auto) 0.2, Baso % (Auto) 0.2, Absolute Neuts (auto) 10.0 H, Absolute Lymphs (auto) 1.12, Nucleated RBC % 0.2, Sodium 137, Potassium 3.4 L, Chloride 107, Carbon Dioxide 25.0, Anion Gap 5, BUN 19 H, Creatinine 0.97, Estim Creat Clear Calc 70.04, Est GFR (MDRD) Af Amer 100, Est GFR (MDRD) Non-Af 83, BUN/Creatinine Ratio 19.7, Glucose 135 H, Calcium 8.1 L, Total Bilirubin 15.00 H, AST 107 H, ALT 68 H, Alkaline Phosphatase 177 H, Total Protein 4.5 L, Albumin 1.2 L, Globulin 3.3, Albumin/Globulin Ratio 0.4 L Physical Exam Narrative General: Resting comfortably, wakes up and answers questions, sometimes answers do not seem appropriate to questioning HEENT: Atraumatic, normocephalic Eyes: Will open eyes spontaneously Neck: Supple Respiratory: Clear to auscultation bilaterally, normal respiratory effort Cardiovascular: Regular rate and rhythm GI: Soft, reports slight tenderness in upper quadrants, no rebound, guarding, rigidity Extremities: No edema Musculoskeletal: Moving all extremities Neuro: No overt focal neurological deficits Skin: No rashes appreciated Psych: Wakes up and attempts to be cooperative Assessment & Plan Assessment/Plan (1) Acidosis, lactic: (2) Acute hypokalemia: (3) Alcoholic hepatitis: (4) Coagulopathy: (5) Jaundice: (6) Sinus tachycardia: (7) Hyperbilirubinemia: (8) Alcohol abuse: PLAN: Plan #Acute alcoholic hepatitis with elevated hyperbilirubinemia with elevated INR despite being not being on Coumadin ? His last alcohol use was about a week and a half ago ? Bilirubin is elevated to 22 and his LFTs are elevated ?Appreciate gastroenterology's assistance ? His Maddrey's discrimination function is 68, continue with acetylcysteine, octreotide, steroids ? MELD score is 26 with a 20% 3-month mortality ? Continue with PPI -01/04: CT on admission suspicious for infection versus inflammatory enterocolitis with marked hepatic steatosis and small volume ascites. LFTs improving with steroid therapy, INR improved with vitamin K, remains on IV Methylpred and antibiotics. Bilirubin further improved today to 15 with further improvement in LFTs #Macrocytic anemia -First value in our system 01/01 and hemoglobin 13.5, has consistently been getting fluids and 01/04 is 10, MCV elevated, suspect multifactorial and likely has nutritional deficiencies, will check B12 and folate and start replacement -Did have slight bump in BUN, no active bleeding noted but will check FOBT in the event there is an early GIB bleed -PPI increased to twice daily -GI following #HTN ? Blood pressure stable ? Continue with his home blood pressure medications -01/04:Home blood pressure medications adjusted now that med rec has been updated which I suspect will improve his BP as it had been low #Hx anxiety and chronic pain -On diazepam and tramadol at home, here on oxycodone and ativan -01/04: Due to patient seeming somewhat intermittently sedated and a little bit confused we will add 5 mg oxycodone option and decrease Ativan with instructions to hold for sedation. Discussed with patient's RN and she reported patient is able to get up and move around and assist in his own care and has not had any significant deviations from baseline DVT: SCDs Time spent in the patient's overall evaluation,decision-making process, review of diagnostic data, adjustment of management, discussion with other providers, nursing nursing and ancillary staff involved in patient's care documentation, 38 minutes Charges/Coding Visit Charges Inpatient E&M: 19975 [facility] L3
[2023-01-04 08:45] VITALS: BP 102/71; PULSE 76; RESP 12; TEMP 36.8; O2SAT 92
[2023-01-04 08:57] LABS: Bilirubin, Direct 11.82 mg/dL (0.00-0.30)
[2023-01-04 10:27] LABS: Anisocytosis 2+; Differential Comment SCANNED; Macrocytosis 1+; Microcytosis 1+
[2023-01-04] MEDS: Potassium Chloride Oral Tablet 20 MEQ PO (11:18)
[2023-01-04] MEDS: oxyCODONE 5 MG Tablet PO ×2 (11:18→18:37)
[2023-01-04] MEDS: Thiamine Hydrochloride 100 MG Tablet PO (11:19)
[2023-01-04 15:05] VITALS: BP 104/71; PULSE 57; RESP 16; TEMP 36.6; O2SAT 92
[2023-01-04 16:55] LABS: Absolute Lymphocyte Count 0.59 X10^3/uL (0.83-4.51); Absolute Neutrophil Count 10.7 X10^3/uL (2.0-7.7); Basophil# 0.02 X10^3/uL; Basophil% 0.2 % (0-1); Hematocrit 28.9 % (40-54); Hemoglobin 10.1 g/dL (13.0-16.5); Lymphocyte # 0.59 X10^3/ul (0.83-4.51); Lymphocyte % 4.9 % (19-41); Mean Corp Hgb Conc 34.9 g/dL (32-36); Mean Corpuscular Hgb 35.9 pg (27.0-32.0); Mean Corpuscular Volume 102.8 fL (80-94); Mean Platelet Vol. 11.2 fl (6.2-12.0); Monocyte% 4.2 % (0-10); NRBC Flagged by Analyzer 0.3 % (0-5); Neutrophil # 10.66 X10^3/uL (2.7-7.7); Neutrophil % 88.9 % (47-70); POSITIVE DIFFERENTIAL YES; POSITIVE MORPHOLOGY YES; Platelet Count 263 K/mm3 (150-450); RBC Distribution Width SD 67.6 fl (35.1-43.9); Red Blood Count 2.81 M/mm3 (4.6-6.2)
[2023-01-04 17:02] LABS: Differential Indicated SCAN CRITERIA MET
[2023-01-04 17:21] LABS: Anisocytosis 1+; Hypochromasia RARE; Macrocytosis 1+; Platelet Estimate ADEQUATE (ADEQ); Red Cell Morphology N CHROM NORMAL (NORM C&C)
[2023-01-04 19:42] VITALS: BP 87/58; PULSE 60; RESP 16; TEMP 36.2; O2SAT 91
--- NOTE | 2023-01-04 20:12 | PN.GI_ITS ---
Subjective Subjective Patient continues to improve. However, he is not eating very well and does complain of abdominal discomfort. He has not been moving very much. Objective Data Objective Data Vital Signs: Vital Signs Temp Pulse Resp BP Pulse Ox O2 Del Method O2 Flow Rate 97.2 F L 60 16 87/58 L 91 Room Air 2 01/04/23 19:42 01/04/23 19:42 01/04/23 19:42 01/04/23 19:42 01/04/23 19:42 01/04/23 19:42 01/03/23 07:16 Oxygen Flow Rate (L/min) 2 Oxygen Delivery Method Room Air Weight: 155 lb 6.814 oz Body Mass Index (BMI) 24.3 Intake & Output: Intake and Output for Last 24 Hours 01/02/23 01/03/23 01/04/23 23:59 23:59 23:59 Intake Total 4966.82 / 4966.82 1883.42 / 1883.42 1148.29 / 1148.29 Balance 4966.82 / 4966.82 1883.42 / 1883.42 1148.29 / 1148.29 Lab / Micro Data 01/04/23 16:45 01/04/23 05:10 Labs: Laboratory Results - last 24 hr 01/04/23 05:10: WBC 12.3 H, RBC 2.85 L, Hgb 10.0 L, Hct 29.5 L, MCV 103.5 H, MCH 35.1 H, MCHC 33.9, RDW Std Deviation 67.9 H, RDW Coeff of Marla 18.0 H, Plt Count 273, MPV 11.7, Immature Gran % (Auto) 2.000 H, Neut % (Auto) 81.6 H, Lymph % (Auto) 9.1 L, [place] % (Auto) 6.9, Eos % (Auto) 0.2, Baso % (Auto) 0.2, Absolute Neuts (auto) 10.0 H, Absolute Lymphs (auto) 1.12, Nucleated RBC % 0.2, Differential Comment SCANNED, Anisocytosis 2+, Microcytosis 1+, Macrocytosis 1+, Sodium 137, Potassium 3.4 L, Chloride 107, Carbon Dioxide 25.0, Anion Gap 5, BUN 19 H, Creatinine 0.97, Estim Creat Clear Calc 70.04, Est GFR (MDRD) Af Amer 100, Est GFR (MDRD) Non-Af 83, BUN/Creatinine Ratio 19.7, Glucose 135 H, Calcium 8.1 L, Total Bilirubin 15.00 H, Direct Bilirubin 11.82 H, AST 107 H, ALT 68 H, Alkaline Phosphatase 177 H, Total Protein 4.5 L, Albumin 1.2 L, Globulin 3.3, Albumin/Globulin Ratio 0.4 L 01/04/23 16:45: WBC 12.0 H, RBC 2.81 L, Hgb 10.1 L, Hct 28.9 L, MCV 102.8 H, MCH 35.9 H, MCHC 34.9, RDW Std Deviation 67.6 H, RDW Coeff of Marla 18.0 H, Plt Count 263, MPV 11.2, Immature Gran % (Auto) 1.800 H, Neut % (Auto) 88.9 H, Lymph % (Auto) 4.9 L, [place] % (Auto) 4.2, Eos % (Auto) 0.0, Baso % (Auto) 0.2, Absolute Neuts (auto) 10.7 H, Absolute Lymphs (auto) 0.59 L, Nucleated RBC % 0.3, Differential Comment SEE COMMENT, Platelet Estimate ADEQUATE, RBC Morphology N CHROM, Hypochromasia RARE, Anisocytosis 1+, Macrocytosis 1+ Micro: Microbiology 01/04/23 12:51 Stool Stool Occult Blood (BERNADETTE) - Final Occult Blood Positive Physical Exam Narrative General: Resting comfortably, wakes up and answers questions, sometimes answers do not seem appropriate to questioning HEENT: Atraumatic, normocephalic Eyes: Will open eyes spontaneously Neck: Supple Respiratory: Clear to auscultation bilaterally, normal respiratory effort Cardiovascular: Regular rate and rhythm GI: Soft, reports slight tenderness in upper quadrants, no rebound, guarding, rigidity Extremities: No edema Musculoskeletal: Moving all extremities Neuro: No overt focal neurological deficits Skin: No rashes appreciated Psych: Wakes up and attempts to be cooperative Assessment & Plan Assessment/Plan (1) Acidosis, lactic: (2) Acute hypokalemia: (3) Alcoholic hepatitis: (4) Coagulopathy: (5) Jaundice: (6) Sinus tachycardia: (7) Hyperbilirubinemia: (8) Alcohol abuse: PLAN: Plan 1. Acute alcoholic hepatitis with elevated hyperbilirubinemia with elevated INR despite being not being on Coumadin ? His last alcohol use was about a week and a half ago ? Bilirubin is elevated to 22 and his LFTs are elevated ?Appreciate gastroenterology's assistance ? His Nick's discrimination function is 68, continue with acetylcysteine, octreotide, steroids ? MELD score is 26 with a 20% 3-month mortality ? Continue with PPI 2. HTN ? Blood pressure stable ? Continue with his home blood pressure medications 01/03: His LFTs are improving with steroid therapy. He will need to calculate a Anyi score on day 5 to see if he will benefit from steroids for 30 days. I gave him another dose of vitamin K yesterday It decrease his INR down to 1.3. He is still on antibiotics and doing well. Autoimmune labs are pending. Continue current work-up. 01/04: His hemoglobin is slightly down today. I suspect that is just from alcoholic hepatitis and alcoholic gastritis. From his 3 to 4-day Lille score he shows a benefit to keep steroids going. Therefore he will need it for 30 days. His LFTs are improving very well. Agree with continuing current management. DVT: SCDs Charges/Coding Visit Charges Inpatient E&M: 92863 [facility]s Hosp L3
[2023-01-04] MEDS: LORazepam 0.5 MG Tablet PO (21:32)
[2023-01-05 00:36] VITALS: BP 117/79; PULSE 63; RESP 17; TEMP 36.2; O2SAT 93
[2023-01-05] MEDS: oxyCODONE 5 MG Tablet 10 MG PO (03:55)
[2023-01-05 05:17] LABS: Absolute Lymphocyte Count 1.14 X10^3/uL (0.83-4.51); Absolute Neutrophil Count 11.3 X10^3/uL (2.0-7.7); Basophil# 0.04 X10^3/uL; Basophil% 0.3 % (0-1); Eosinophil# 0.04 X10^3/uL; Eosinophils% 0.3 % (0-5); Hemoglobin 10.5 g/dL (13.0-16.5); Lymphocyte # 1.14 X10^3/ul (0.83-4.51); Lymphocyte % 8.1 % (19-41); Mean Corpuscular Hgb 35.2 pg (27.0-32.0); Mean Corpuscular Volume 100.7 fL (80-94); Mean Platelet Vol. 11.2 fl (6.2-12.0); Monocyte# 1.18 X10^3/uL; Monocyte% 8.4 % (0-10); NRBC Flagged by Analyzer 0.3 % (0-5); Neutrophil # 11.28 X10^3/uL (2.7-7.7); Neutrophil % 79.9 % (47-70); POSITIVE MORPHOLOGY YES; Platelet Count 303 K/mm3 (150-450); RBC Distribution Width CV 17.7 % (11.6-14.6); RBC Distribution Width SD 65.6 fl (35.1-43.9); Red Blood Count 2.98 M/mm3 (4.6-6.2); White Blood Count 14.1 K/mm3 (4.4-11.0)
[2023-01-05 05:21] LABS: Differential Indicated SCAN CRITERIA MET
[2023-01-05 05:27] LABS: International Normalized Ratio 1.3; Prothrombin Time (Protime)PT. 15.7 SECONDS (11.7-14.9)
[2023-01-05 05:48] LABS: Anisocytosis 1+; Macrocytosis 1+
[2023-01-05 05:59] LABS: ALB/GLOB Ratio 0.4 RATIO (0.9-2.4); AST(SGOT) 101 U/L (15-37); Alanine Aminotransfer ALT/SGPT 69 U/L (16-61); Albumin, Serum 1.4 g/dL (3.2-5.0); Alkaline Phosphatase 187 U/L (45-117); Anion Gap 6 (5-15); BUN 20 mg/dL (7-18); BUN/Creat Ratio 21.3 RATIO (10-20); Calcium,Total 8.2 mg/dL (8.5-10.1); Chloride 107 mmol/L (98-107); Creatinine, Serum 0.94 mg/dL (0.70-1.30); EST Glomerular Filtration Rate 85 mL/min (>60); Est Glom Filt Rate - Afr Amer 103 mL/min (>60); Estimated Creatinine Clearance 72.27 ml/min; Globulin 3.4 g/dL (2.2-4.2); Glucose 113 mg/dL (74-106); Potassium 3.2 mmol/L (3.5-5.1); Protein, Total 4.8 g/dL (6.4-8.2); Sodium Level 138 mmol/L (136-145)
[2023-01-05] MEDS: Ensure Plus High Protein 120 ML LIQUID PO ×3 (07:06→20:14)
[2023-01-05 07:07] VITALS: BP 122/85; PULSE 98; RESP 18; TEMP 35.8; O2SAT 94
[2023-01-05 07:40] VITALS: O2SAT 95
--- NOTE | 2023-01-05 08:26 | PCM.PN.HOSP ---
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 Evaluated with at bedside. Does report he feels much better overall, intermittently will have little bit of abdominal pain and reports intermittent diarrhea has been present since before admission. He said he likes the oxycodone because it helps his diarrhea but is open other options Objective Data Objective Data Vital Signs: Vital Signs Temp Pulse Resp BP Pulse Ox O2 Del Method O2 Flow Rate 96.5 F L 98 18 122/85 H 94 Room Air 2 01/05/23 07:07 01/05/23 07:07 01/05/23 07:07 01/05/23 07:07 01/05/23 07:07 01/05/23 07:07 01/03/23 07:16 Oxygen Flow Rate (L/min) 2 Oxygen Delivery Method Room Air Weight: 70.5 kg Body Mass Index (BMI) 24.3 Intake & Output: Intake and Output for Last 24 Hours 01/03/23 01/04/23 01/05/23 23:59 23:59 23:59 Intake Total 1883.42 / 1883.42 1148.29 / 1148.29 230 / 230 Balance 1883.42 / 1883.42 1148.29 / 1148.29 230 / 230 Lab / Micro Data 01/05/23 05:00 01/05/23 05:00 Labs: Laboratory Results - last 24 hr 01/04/23 05:10: Differential Comment SCANNED, Anisocytosis 2+, Microcytosis 1+, Macrocytosis 1+, Direct Bilirubin 11.82 H 01/04/23 16:45: WBC 12.0 H, RBC 2.81 L, Hgb 10.1 L, Hct 28.9 L, MCV 102.8 H, MCH 35.9 H, MCHC 34.9, RDW Std Deviation 67.6 H, RDW Coeff of Marla 18.0 H, Plt Count 263, MPV 11.2, Immature Gran % (Auto) 1.800 H, Neut % (Auto) 88.9 H, Lymph % (Auto) 4.9 L, [place] % (Auto) 4.2, Eos % (Auto) 0.0, Baso % (Auto) 0.2, Absolute Neuts (auto) 10.7 H, Absolute Lymphs (auto) 0.59 L, Nucleated RBC % 0.3, Differential Comment SEE COMMENT, Platelet Estimate ADEQUATE, RBC Morphology N CHROM, Hypochromasia RARE, Anisocytosis 1+, Macrocytosis 1+ 01/05/23 05:00: WBC 14.1 H, RBC 2.98 L, Hgb 10.5 L, Hct 30.0 L, MCV 100.7 H, MCH 35.2 H, MCHC 35.0, RDW Std Deviation 65.6 H, RDW Coeff of Marla 17.7 H, Plt Count 303, MPV 11.2, Immature Gran % (Auto) 3.000 H, Neut % (Auto) 79.9 H, Lymph % (Auto) 8.1 L, [place] % (Auto) 8.4, Eos % (Auto) 0.3, Baso % (Auto) 0.3, Absolute Neuts (auto) 11.3 H, Absolute Lymphs (auto) 1.14, Nucleated RBC % 0.3, Anisocytosis 1+, Macrocytosis 1+, PT 15.7 H, INR 1.3, Sodium 138, Potassium 3.2 L, Chloride 107, Carbon Dioxide 25.0, Anion Gap 6, BUN 20 H, Creatinine 0.94, Estim Creat Clear Calc 72.27, Est GFR (MDRD) Af Amer 103, Est GFR (MDRD) Non-Af 85, BUN/Creatinine Ratio 21.3 H, Glucose 113 H, Calcium 8.2 L, Total Bilirubin 16.00 H*, AST 101 H, ALT 69 H, Alkaline Phosphatase 187 H, Ammonia 13.0, Total Protein 4.8 L, Albumin 1.4 L, Globulin 3.4, Albumin/Globulin Ratio 0.4 L, Folate 3.60 Micro: Microbiology 01/04/23 12:51 Stool Stool Occult Blood (BERNADETTE) - Final Occult Blood Positive Physical Exam Narrative General: More alert today and answering questions much more appropriately HEENT: Atraumatic, normocephalic Eyes: Anicteric, normal conjunctiva, extraocular movements grossly intact Neck: Supple Respiratory: Clear to auscultation bilaterally, normal respiratory effort Cardiovascular: Regular rate GI: Soft, no significant tenderness on exam, no rebound, guarding, rigidity, nondistended Extremities: 1+ lower extremity edema Musculoskeletal: Moving all extremities Neuro: No overt focal neurological deficits Skin: No rashes appreciated Psych: Overall cooperative Assessment & Plan Assessment/Plan (1) Acidosis, lactic: (2) Acute hypokalemia: (3) Alcoholic hepatitis: (4) Coagulopathy: (5) Jaundice: (6) Sinus tachycardia: (7) Hyperbilirubinemia: (8) Alcohol abuse: PLAN: Plan #Acute alcoholic hepatitis with elevated hyperbilirubinemia with elevated INR despite being not being on Coumadin ? His last alcohol use was about a week and a half ago ? Bilirubin is elevated to 22 and his LFTs are elevated ?Appreciate gastroenterology's assistance ? His MaddrKidzloop's discrimination function is 68, continue with acetylcysteine, octreotide, steroids ? MELD score is 26 with a 20% 3-month mortality ? Continue with PPI -01/04: CT on admission suspicious for infection versus inflammatory enterocolitis with marked hepatic steatosis and small volume ascites. LFTs improving with steroid therapy, INR improved with vitamin K, remains on IV Methylpred and antibiotics. Bilirubin further improved today to 15 with further improvement in LFTs -01/05: INR remains 1.3, liver function roughly the same with slight increase in bilirubin to 16, GI following, continue Methylpred, will need 30 days total #Macrocytic anemia -First value in our system 01/01 and hemoglobin 13.5, has consistently been getting fluids and 01/04 is 10, MCV elevated, suspect multifactorial and likely has nutritional deficiencies, will check B12 and folate and start replacement -Did have slight bump in BUN, no active bleeding noted but will check FOBT in the event there is an early GIB bleed -PPI increased to twice daily -GI following -01/05: Patient did have the downtrend in hemoglobin however last 3 checks been stable, FOBT was positive, discussed with GI, patient remains on PPI but no evidence of cirrhosis or suspicion of variceal bleeding. May be due to oozing from alcoholic gastritis. Continue to monitor H&H and for any signs or symptoms of blood loss #HTN ? Blood pressure stable ? Continue with his home blood pressure medications -01/04:Home blood pressure medications adjusted now that med rec has been updated which I suspect will improve his BP as it had been low -01/05: BP improving #Hx anxiety and chronic pain -On diazepam and tramadol at home, here on oxycodone and ativan -01/04: Due to patient seeming somewhat intermittently sedated and a little bit confused we will add 5 mg oxycodone option and decrease Ativan with instructions to hold for sedation. Discussed with patient's RN and she reported patient is able to get up and move around and assist in his own care and has not had any significant deviations from baseline -01/05: Continue current medicines DVT: SCDs Time spent in the patient's overall evaluation,decision-making process, review of diagnostic data, adjustment of management, discussion with other providers, nursing nursing and ancillary staff involved in patient's care documentation, 38 minutes Charges/Coding Visit Charges Inpatient E&M: 25205 Subs Hosp L3
[2023-01-05 09:46] VITALS: BP 122/89; PULSE 98; RESP 15; TEMP 36.5; O2SAT 93
[2023-01-05] MEDS: 0.9% Saline Lock 10 ML Syringe IV (10:07)
[2023-01-05] MEDS: Thiamine Hydrochloride 100 MG Tablet PO (10:08)
[2023-01-05] MEDS: Cyanocobalamin 500 MCG Tablet 1000 MCG PO (10:08)
[2023-01-05] MEDS: Folic Acid 1 MG Tablet PO (10:08)
[2023-01-05] MEDS: Methylprednisolone Sod Succ 40 MG/ML VIAL IV (10:15)
[2023-01-05] MEDS: Potassium Chloride Oral Soln 20 MEQ/15 ML UDC 40 MEQ PO (11:04)
[2023-01-05] MEDS: Ceftriaxone 1 GM/50 ML BAG IV (11:05)
[2023-01-05 14:48] VITALS: BP 121/86; PULSE 66; RESP 17; TEMP 36.4; O2SAT 92
[2023-01-05] MEDS: Loperamide 2 MG Capsule 4 MG PO (14:58)
--- NOTE | 2023-01-05 17:06 | PN.GI_ITS ---
Subjective Subjective Patient still complains of mild bloating. He denies any chest pain or shortness of breath. He is more alert today. He does have some mild itching but it is tolerable. Objective Data Objective Data Vital Signs: Vital Signs Temp Pulse Resp BP Pulse Ox O2 Del Method O2 Flow Rate 97.6 F L 66 17 121/86 H 92 Room Air 2 01/05/23 14:48 01/05/23 14:48 01/05/23 14:48 01/05/23 14:48 01/05/23 14:48 01/05/23 14:48 01/03/23 07:16 Oxygen Flow Rate (L/min) 2 Oxygen Delivery Method Room Air Weight: 155 lb 6.814 oz Body Mass Index (BMI) 24.3 Intake & Output: Intake and Output for Last 24 Hours 01/03/23 01/04/23 01/05/23 23:59 23:59 23:59 Intake Total 1883.42 / 1883.42 1148.29 / 1148.29 880 / 880 Balance 1883.42 / 1883.42 1148.29 / 1148.29 880 / 880 Lab / Micro Data 01/05/23 05:00 01/05/23 05:00 Labs: Laboratory Results - last 24 hr 01/04/23 16:45: Differential Comment SEE COMMENT, Platelet Estimate ADEQUATE, RBC Morphology N CHROM, Hypochromasia RARE, Anisocytosis 1+, Macrocytosis 1+ 01/05/23 05:00: WBC 14.1 H, RBC 2.98 L, Hgb 10.5 L, Hct 30.0 L, MCV 100.7 H, MCH 35.2 H, MCHC 35.0, RDW Std Deviation 65.6 H, RDW Coeff of Marla 17.7 H, Plt Count 303, MPV 11.2, Immature Gran % (Auto) 3.000 H, Neut % (Auto) 79.9 H, Lymph % (Auto) 8.1 L, [place] % (Auto) 8.4, Eos % (Auto) 0.3, Baso % (Auto) 0.3, Absolute Neuts (auto) 11.3 H, Absolute Lymphs (auto) 1.14, Nucleated RBC % 0.3, Anisocytosis 1+, Macrocytosis 1+, PT 15.7 H, INR 1.3, Sodium 138, Potassium 3.2 L, Chloride 107, Carbon Dioxide 25.0, Anion Gap 6, BUN 20 H, Creatinine 0.94, Estim Creat Clear Calc 72.27, Est GFR (MDRD) Af Amer 103, Est GFR (MDRD) Non-Af 85, BUN/Creatinine Ratio 21.3 H, Glucose 113 H, Calcium 8.2 L, Total Bilirubin 16.00 H*, AST 101 H, ALT 69 H, Alkaline Phosphatase 187 H, Ammonia 13.0, Total Protein 4.8 L, Albumin 1.4 L, Globulin 3.4, Albumin/Globulin Ratio 0.4 L, Folate 3.60 Micro: Microbiology 01/04/23 12:51 Stool Stool Occult Blood (BERNADETTE) - Final Occult Blood Positive Physical Exam Narrative General: More alert today and answering questions much more appropriately HEENT: Atraumatic, normocephalic Eyes: Anicteric, normal conjunctiva, extraocular movements grossly intact Neck: Supple Respiratory: Clear to auscultation bilaterally, normal respiratory effort Cardiovascular: Regular rate GI: Soft, no significant tenderness on exam, no rebound, guarding, rigidity, nondistended Extremities: 1+ lower extremity edema Musculoskeletal: Moving all extremities Neuro: No overt focal neurological deficits Skin: No rashes appreciated Psych: Overall cooperative Assessment & Plan Assessment/Plan (1) Acidosis, lactic: (2) Acute hypokalemia: (3) Alcoholic hepatitis: (4) Coagulopathy: (5) Jaundice: (6) Sinus tachycardia: (7) Hyperbilirubinemia: (8) Alcohol abuse: PLAN: Plan 1. Acute alcoholic hepatitis with elevated hyperbilirubinemia with elevated INR despite being not being on Coumadin ? His last alcohol use was about a week and a half ago ? Bilirubin is elevated to 22 and his LFTs are elevated ?Appreciate gastroenterology's assistance ? His Maddrey's discrimination function is 68, continue with acetylcysteine, octreotide, steroids ? MELD score is 26 with a 20% 3-month mortality ? Continue with PPI 2. HTN ? Blood pressure stable ? Continue with his home blood pressure medications 01/03: His LFTs are improving with steroid therapy. He will need to calculate a Anyi score on day 5 to see if he will benefit from steroids for 30 days. I gave him another dose of vitamin K yesterday It decrease his INR down to 1.3. He is still on antibiotics and doing well. Autoimmune labs are pending. Continue current work-up. 01/04: His hemoglobin is slightly down today. I suspect that is just from alcoholic hepatitis and alcoholic gastritis. From his 3 to 4-day Lille score he shows a benefit to keep steroids going. Therefore he will need it for 30 days. His LFTs are improving very well. Agree with continuing current management. 01/05: Bilirubin is slightly up today. I would give him another dose of Mucomyst at this time. It can take 8 to 12 weeks with his bilirubin to go with down to normal. He is only on 0.5 mg/kg dose of steroid for alcoholic hepatitis. Typically it is 1 mg up to 2.5 mg/kg while in the hospital and transitioned to 0.5 mg as an outpatient. As long as he is improving I do not want to increase h is dose of steroids because it can increase his risk of infection while he is in an acute inflammatory state of acute alcoholic hepatitis. He may need a dose of diuretics tomorrow. I would only give him Lasix 20 mg IV a day. Continue bowel regimen with addition of narcotics. DVT: SCDs Charges/Coding Visit Charges Inpatient E&M: 02823 Subs Hosp L3
[2023-01-05 20:18] VITALS: BP 122/93; PULSE 73; RESP 14; TEMP 36.6; O2SAT 95
[2023-01-05] MEDS: oxyCODONE 5 MG Tablet PO (21:14)
[2023-01-06 02:00] VITALS: BP 124/92; PULSE 95; RESP 14; TEMP 36.7; O2SAT 95
[2023-01-06 05:22] LABS: Absolute Lymphocyte Count 1.46 X10^3/uL (0.83-4.51); Absolute Neutrophil Count 14.9 X10^3/uL (2.0-7.7); Basophil# 0.09 X10^3/uL; Basophil% 0.5 % (0-1); Eosinophil# 0.02 X10^3/uL; Eosinophils% 0.1 % (0-5); Hematocrit 32.8 % (40-54); Hemoglobin 11.5 g/dL (13.0-16.5); Lymphocyte # 1.46 X10^3/ul (0.83-4.51); Mean Corp Hgb Conc 35.1 g/dL (32-36); Mean Corpuscular Hgb 34.8 pg (27.0-32.0); Mean Corpuscular Volume 99.4 fL (80-94); Mean Platelet Vol. 11.4 fl (6.2-12.0); Monocyte# 1.32 X10^3/uL; Monocyte% 7.2 % (0-10); NRBC Flagged by Analyzer 0.2 % (0-5); Neutrophil # 14.87 X10^3/uL (2.7-7.7); Platelet Count 329 K/mm3 (150-450); RBC Distribution Width CV 17.7 % (11.6-14.6); RBC Distribution Width SD 64.6 fl (35.1-43.9); White Blood Count 18.3 K/mm3 (4.4-11.0)
[2023-01-06 05:30] LABS: International Normalized Ratio 1.2; Prothrombin Time (Protime)PT. 15.3 SECONDS (11.7-14.9)
[2023-01-06 05:57] LABS: ALB/GLOB Ratio 0.4 RATIO (0.9-2.4); AST(SGOT) 113 U/L (15-37); Alanine Aminotransfer ALT/SGPT 81 U/L (16-61); Albumin, Serum 1.5 g/dL (3.2-5.0); Alkaline Phosphatase 225 U/L (45-117); Anion Gap 6 (5-15); BUN 17 mg/dL (7-18); BUN/Creat Ratio 19.1 RATIO (10-20); Calcium,Total 8.4 mg/dL (8.5-10.1); Chloride 109 mmol/L (98-107); Creatinine, Serum 0.89 mg/dL (0.70-1.30); EST Glomerular Filtration Rate 91 mL/min (>60); Est Glom Filt Rate - Afr Amer 110 mL/min (>60); Estimated Creatinine Clearance 76.33 ml/min; Globulin 3.6 g/dL (2.2-4.2); Glucose 107 mg/dL (74-106); Potassium 3.6 mmol/L (3.5-5.1); Protein, Total 5.1 g/dL (6.4-8.2); Sodium Level 138 mmol/L (136-145)
[2023-01-06 07:48] LABS: Ammonia < 10.0 umol/L (11-32)
[2023-01-06 08:00] VITALS: O2SAT 94
[2023-01-06 08:03] LABS: LDH 254 U/L (87-241)
[2023-01-06 08:08] LABS: Erythrocyte Sedimentation Rate 21 mm/hr (0-20)
--- NOTE | 2023-01-06 08:10 | PCM.PN.HOSP ---
Reason for Visit Reason for Visit: Diagnoses Coagulation defect, unspecified (01/01/23) Other disorders of bilirubin metabolism (01/01/23) Acidosis, unspecified (01/01/23) Hypokalemia (01/01/23) Alcohol abuse, uncomplicated (01/01/23) Alcoholic hepatitis without ascites (01/01/23) Tachycardia, unspecified (01/01/23) Unspecified jaundice (01/01/23) Subjective Subjective Feeling roughly the same today, is awake and answering questions, does have some mild abdominal pain worse periumbilically Objective Data Objective Data Vital Signs: Vital Signs Temp Pulse Resp BP Pulse Ox O2 Del Method O2 Flow Rate 98.0 F 95 14 124/92 H 95 Room Air 2 01/06/23 02:00 01/06/23 02:00 01/06/23 02:00 01/06/23 02:00 01/06/23 02:00 01/06/23 02:00 01/03/23 07:16 Oxygen Flow Rate (L/min) 2 Oxygen Delivery Method Room Air Weight: 70.5 kg Body Mass Index (BMI) 24.3 Intake & Output: Intake and Output for Last 24 Hours 01/04/23 01/05/23 01/06/23 23:59 23:59 23:59 Intake Total 1148.29 / 1148.29 880 / 880 110 / 110 Balance 1148.29 / 1148.29 880 / 880 110 / 110 Lab / Micro Data 01/06/23 04:40 01/06/23 04:40 Labs: Laboratory Results - last 24 hr 01/06/23 04:40: WBC 18.3 H, RBC 3.30 L, Hgb 11.5 L, Hct 32.8 L, MCV 99.4 H, MCH 34.8 H, MCHC 35.1, RDW Std Deviation 64.6 H, RDW Coeff of Marla 17.7 H, Plt Count 329, MPV 11.4, Immature Gran % (Auto) 3.200 H, Neut % (Auto) 81.0 H, Lymph % (Auto) 8.0 L, [place] % (Auto) 7.2, Eos % (Auto) 0.1, Baso % (Auto) 0.5, Absolute Neuts (auto) 14.9 H, Absolute Lymphs (auto) 1.46, Nucleated RBC % 0.2, ESR 21 H, PT 15.3 H, INR 1.2, Sodium 138, Potassium 3.6, Chloride 109 H, Carbon Dioxide 23.0, Anion Gap 6, BUN 17, Creatinine 0.89, Estim Creat Clear Calc 76.33, Est GFR (MDRD) Af Amer 110, Est GFR (MDRD) Non-Af 91, BUN/Creatinine Ratio 19.1, Glucose 107 H, Calcium 8.4 L, Total Bilirubin 18.60 H*, AST 113 H, ALT 81 H, Alkaline Phosphatase 225 H, Lactate Dehydrogenase 254 H, C-React Prot Ext Range 27.00 H, Total Protein 5.1 L, Albumin 1.5 L, Globulin 3.6, Albumin/Globulin Ratio 0.4 L 01/06/23 07:07: Lactic Acid 1.0, Ammonia < 10.0 L Micro: Microbiology 01/05/23 14:43 Stool C. difficile GDH Antigen & Toxins - Final Toxigenic C. difficile 01/04/23 12:51 Stool Stool Occult Blood ([facility]) - Final Occult Blood Positive Physical Exam Narrative General: Alert and answering questions more appropriately HEENT: Atraumatic, normocephalic Eyes: Normal conjunctiva, extraocular movements grossly intact Neck: Supple Respiratory: Clear to auscultation bilaterally, normal respiratory effort Cardiovascular: Regular rate GI: Soft, some generalized mild tenderness worse periumbilically without rebound, guarding, rigidity, nondistended Extremities: 1+ lower extremity edema Musculoskeletal: Moving all extremities Neuro: No overt focal neurological deficits Skin: No rashes appreciated Psych: Overall cooperative Assessment & Plan Assessment/Plan (1) Acidosis, lactic: (2) Acute hypokalemia: (3) Alcoholic hepatitis: (4) Coagulopathy: (5) Jaundice: (6) Sinus tachycardia: (7) Hyperbilirubinemia: (8) Alcohol abuse: PLAN: Plan #Acute alcoholic hepatitis with elevated hyperbilirubinemia with elevated INR despite being not being on Coumadin ? His last alcohol use was about a week and a half ago ? Bilirubin is elevated to 22 and his LFTs are elevated ?Appreciate gastroenterology's assistance ? His Maddrey's discrimination function is 68, continue with acetylcysteine, octreotide, steroids ? MELD score is 26 with a 20% 3-month mortality ? Continue with PPI -7/1: CT on admission suspicious for infection versus inflammatory enterocolitis with marked hepatic steatosis and small volume ascites. LFTs improving with steroid therapy, INR improved with vitamin K, remains on IV Methylpred and antibiotics. Bilirubin further improved today to 15 with further improvement in LFTs -01/05: INR remains 1.3, liver function roughly the same with slight increase in bilirubin to 16, GI following, continue Methylpred, will need 30 days total -01/06: Bili increased to 18.6 with slight increase in LFTs, CRP 27, ESR 21, patient on Methylpred, discussed with GI and is felt that patient needs biopsy and would benefit from higher level of care, patient accepted by [facility] and will be transferred. #C. difficile infection -Patient reported he had had some intermittent diarrhea since before coming in and continued to have intermittent diarrhea on that he was in part taking oxycodone to decrease the diarrhea -C. difficile checked and is resulted positive -Did have increase in WBC count but is vitally stable -Oral vancomycin started -Given patient's complicated nature with acute alcoholic hepatitis and requirement for IV steroids ID has been consulted -Fluids restarted #Macrocytic anemia -First value in our system 01/01 and hemoglobin 13.5, has consistently been getting fluids and 01/04 is 10, MCV elevated, suspect multifactorial and likely has nutritional deficiencies, will check B12 and folate and start replacement -Did have slight bump in BUN, no active bleeding noted but will check FOBT in the event there is an early GIB bleed -PPI increased to twice daily -GI following -01/05: Patient did have the downtrend in hemoglobin however last 3 checks been stable, FOBT was positive, discussed with GI, patient remains on PPI but no evidence of cirrhosis or suspicion of variceal bleeding. May be due to oozing from alcoholic gastritis. Continue to monitor H&H and for any signs or symptoms of blood loss -01/06: Hemoglobin stable #HTN ? Blood pressure stable ? Continue with his home blood pressure medications -01/04:Home blood pressure medications adjusted now that med rec has been updated which I suspect will improve his BP as it had been low -01/05: BP improving #Hx anxiety and chronic pain -On diazepam and tramadol at home, here on oxycodone and ativan -01/04: Due to patient seeming somewhat intermittently sedated and a little bit confused we will add 5 mg oxycodone option and decrease Ativan with instructions to hold for sedation. Discussed with patient's RN and she reported patient is able to get up and move around and assist in his own care and has not had any significant deviations from baseline -01/05: Continue current medicines DVT: SCDs Time spent in the patient's overall evaluation,decision-making process, review of diagnostic data, adjustment of management, discussion with other providers, nursing nursing and ancillary staff involved in patient's care documentation, 38 minutes Charges/Coding Visit Charges Inpatient E&M: 16543 Subs Hosp L3
[2023-01-06 09:24] LABS: Vitamin D,25 Hydroxy 42.9 ng/mL
[2023-01-06 10:07] VITALS: BP 106/76; PULSE 104; RESP 17; TEMP 36.5; O2SAT 93
[2023-01-06] MEDS: Cyanocobalamin 500 MCG Tablet 1000 MCG PO (10:14)
[2023-01-06] MEDS: Folic Acid 1 MG Tablet PO (10:14)
[2023-01-06] MEDS: Thiamine Hydrochloride 100 MG Tablet PO (10:14)
[2023-01-06] MEDS: Vancomycin 125 MG/5 ML Susp PO.SYRINGE PO (10:15)
[2023-01-06] MEDS: oxyCODONE 5 MG Tablet 10 MG PO (10:16)
[2023-01-06] MEDS: 0.9% Normal Saline 1,000 ML 100 ML IV ×2 (10:29→16:22)
[2023-01-06] MEDS: Methylprednisolone Sod Succ 40 MG/ML VIAL IV (10:31)
--- NOTE | 2023-01-06 11:04 | CON.PCM.ID_ITS ---
Assessment & Plan Assessment/Plan (1) C. difficile diarrhea: PLAN: We will treat with high-dose oral vancomycin 500 mg 4 times a day and continue supportive care. HPI Consult Data Date of Consult: 01/06/23 HPI Narrative Reason for Consultation: C. difficile infection HPI Narrative: TAYLOR JASMINE, is a 67 M who presents altered mental status and acute alcohol intoxication. Patient was found to have acute alcohol hepatitis with markedly elevated liver function test and hyperbilirubinemia. During this admission patient did develop diarrhea and interestingly his stools were positive for C. difficile. He is on Solu-Medrol for treatment of his acute alcohol-related hepatitis. He denies any recent history of antimicrobial therapy in the outpatient setting. He states he has been drinking actively for the last 3 months. No cardiopulmonary distress. No further nausea or vomiting. [facility] Medical History (Updated 01/06/23 @ 11:[address] Bolivar Gibson MD) Hypertension Tobacco abuse Home Medications alprazolam 1 mg tablet 1 mg PO QHS anxiety 01/01/23 [History Last Taken Unknown] amlodipine 2.5 mg tablet 2.5 mg PO DAILY blood pressure 01/01/23 [History Last Taken Unknown] clonidine HCl 0.1 mg tablet 0.1 mg PO DAILY PRN PRN Hypertension 01/01/23 [History Last Taken Unknown] diazepam 5 mg tablet 5 mg PO DAILY PRN PRN ANXIETY 01/01/23 [History Last Taken Unknown] tramadol 50 mg tablet 100 mg PO Q8H PRN pain 01/01/23 [History Last Taken Unknow n] Allergy/AdvReac Type Severity Reaction Status Date / Time bupropion [From Wellbutrin] Allergy Intermediate mental Verified 01/02/23 14:33 status change/memory problems diclofenac Allergy Mild Rash Verified 01/02/23 14:33 gabapentin AdvReac Mild mouth Verified 01/02/23 14:33 iritation and burning sensation lansoprazole [From Prevacid] AdvReac Mild Diarrhea Verified 01/02/23 14:33 clindamycin AdvReac thrush oral Verified 01/02/23 14:33 fentanyl AdvReac Other Verified 01/02/23 14:33 NSAIDS (Non-Steroidal AdvReac Diarrhea Verified 01/02/23 14:33 Anti-Inflamma Family History unable to obtain Surgical History unable to obtain Social History (Updated 01/01/23 @ 19:[address] Hazel Rodas, DO) household members: spouse housing: house Smoking Status: Current some day smoker tobacco type: cigarettes alcohol intake: current details: 1/2 L daily up until 2 weeks ago substance use type: does not use ROS ROS Narrative As stated in history of present illness others negative Physical Exam Narrative Alert responsive chronically ill-appearing man lungs are clear heart exam S1-S2 abdomen is soft with generalized tenderness but no peritoneal signs. Lab / Micro Data 01/06/23 04:40 01/06/23 04:40 Labs: Laboratory Results - last 24 hr 01/05/23 05:00: Vitamin D 25-Hydroxy 42.9 01/06/23 04:40: WBC 18.3 H, RBC 3.30 L, Hgb 11.5 L, Hct 32.8 L, MCV 99.4 H, MCH 34.8 H, MCHC 35.1, RDW Std Deviation 64.6 H, RDW Coeff of Marla 17.7 H, Plt Count 329, MPV 11.4, Immature Gran % (Auto) 3.200 H, Neut % (Auto) 81.0 H, Lymph % (Auto) 8.0 L, [place] % (Auto) 7.2, Eos % (Auto) 0.1, Baso % (Auto) 0.5, Absolute Neuts (auto) 14.9 H, Absolute Lymphs (auto) 1.46, Nucleated RBC % 0.2, ESR 21 H, PT 15.3 H, INR 1.2, Sodium 138, Potassium 3.6, Chloride 109 H, Carbon Dioxide 23.0, Anion Gap 6, BUN 17, Creatinine 0.89, Estim Creat Clear Calc 76.33, Est GFR (MDRD) Af Amer 110, Est GFR (MDRD) Non-Af 91, BUN/Creatinine Ratio 19.1, Glucose 107 H, Calcium 8.4 L, Total Bilirubin 18.60 H*, AST 113 H, ALT 81 H, Alkaline Phosphatase 225 H, Lactate Dehydrogenase 254 H, C-React Prot Ext Range 27.00 H, Total Protein 5.1 L, Albumin 1.5 L, Globulin 3.6, Albumin/Globulin Ratio 0.4 L 01/06/23 07:07: Lactic Acid 1.0, Ammonia < 10.0 L Micro: Microbiology 01/05/23 14:43 Stool C. difficile GDH Antigen & Toxins - Final Toxigenic C. difficile
--- NOTE | 2023-01-06 11:36 | CASEMGMT ---
Tertiary facilities in-network with patient's insurance: [facility], [facility], [facility], , [facility] Sanchez, [facility]
[2023-01-06 13:30] LABS: Vitamin B12 957 pg/mL (211-911)
[2023-01-06] MEDS: Ensure Plus High Protein 120 ML LIQUID PO ×2 (16:22→20:04)
[2023-01-06] MEDS: Vancomycin HCl 250 MG Capsule 500 MG PO (16:23)
--- NOTE | 2023-01-06 16:29 | PN.GI_ITS ---
Subjective Subjective Patient feels about the same as he did yesterday. He does complain of mild bloating and diarrhea. He recently tested positive for C. difficile colitis and is being seen by infectious disease. He denies any chest pain, shortness of breath or abdominal pain at this time. Objective Data Objective Data Vital Signs: Vital Signs Temp Pulse Resp BP Pulse Ox O2 Del Method O2 Flow Rate 97.7 F L 104 H 17 106/76 93 Room Air 2 01/06/23 10:01/06/23 10:01/06/23 10:07 01/06/23 10:07 01/06/23 10:07 01/06/23 10:07 01/03/23 07:16 Oxygen Flow Rate (L/min) 2 Oxygen Delivery Method Room Air Weight: 155 lb 6.814 oz Body Mass Index (BMI) 24.3 Intake & Output: Intake and Output for Last 24 Hours 01/04/23 01/05/23 01/06/23 23:59 23:59 23:59 Intake Total 1148.29 / 1148.29 880 / 880 1058.33 / 1058.33 Balance 1148.29 / 1148.29 880 / 880 1058.33 / 1058.33 Lab / Micro Data 01/06/23 04:40 01/06/23 04:40 Labs: Laboratory Results - last 24 hr 01/05/23 05:00: Vitamin B12 957 H, Vitamin D 25-Hydroxy 42.9 01/06/23 04:40: WBC 18.3 H, RBC 3.30 L, Hgb 11.5 L, Hct 32.8 L, MCV 99.4 H, MCH 34.8 H, MCHC 35.1, RDW Std Deviation 64.6 H, RDW Coeff of Marla 17.7 H, Plt Count 329, MPV 11.4, Immature Gran % (Auto) 3.200 H, Neut % (Auto) 81.0 H, Lymph % (Auto) 8.0 L, [place] % (Auto) 7.2, Eos % (Auto) 0.1, Baso % (Auto) 0.5, Absolute Neuts (auto) 14.9 H, Absolute Lymphs (auto) 1.46, Nucleated RBC % 0.2, ESR 21 H, PT 15.3 H, INR 1.2, Sodium 138, Potassium 3.6, Chloride 109 H, Carbon Dioxide 23.0, Anion Gap 6, BUN 17, Creatinine 0.89, Estim Creat Clear Calc 76.33, Est GFR (MDRD) Af Amer 110, Est GFR (MDRD) Non-Af 91, BUN/Creatinine Ratio 19.1, Glucose 107 H, Calcium 8.4 L, Total Bilirubin 18.60 H*, AST 113 H, ALT 81 H, Alkaline Phosphatase 225 H, Lactate Dehydrogenase 254 H, C-React Prot Ext Range 27.00 H, Total Protein 5.1 L, Albumin 1.5 L, Globulin 3.6, Albumin/Globulin Ratio 0.4 L 01/06/23 07:07: Lactic Acid 1.0, Ammonia < 10.0 L Micro: Microbiology 01/05/23 14:43 Stool C. difficile GDH Antigen & Toxins - Final Toxigenic C. difficile 01/04/23 12:51 Stool Stool Occult Blood ([place]) - Final Occult Blood Positive Physical Exam Narrative General: More alert today and answering questions much more appropriately HEENT: Atraumatic, normocephalic Eyes: Anicteric, normal conjunctiva, extraocular movements grossly intact Neck: Supple Respiratory: Clear to auscultation bilaterally, normal respiratory effort Cardiovascular: Regular rate GI: Soft, no significant tenderness on exam, no rebound, guarding, rigidity, nondistended Extremities: 1+ lower extremity edema Musculoskeletal: Moving all extremities Neuro: No overt focal neurological deficits Skin: No rashes appreciated Psych: Overall cooperative No signs of encephalopathy at this time Assessment & Plan Assessment/Plan (1) Acidosis, lactic: (2) Acute hypokalemia: (3) Alcoholic hepatitis: (4) Coagulopathy: (5) Jaundice: (6) Sinus tachycardia: (7) Hyperbilirubinemia: (8) Alcohol abuse: PLAN: Plan 1. Acute alcoholic hepatitis with elevated hyperbilirubinemia with elevated INR despite being not being on Coumadin ? His last alcohol use was about a week and a half ago ? Bilirubin is elevated to 22 and his LFTs are elevated ?Appreciate gastroenterology's assistance ? His Filmastercristine's discrimination function is 68, continue with acetylcysteine, oct reotide, steroids ? MELD score is 26 with a 20% 3-month mortality ? Continue with PPI 2. HTN ? Blood pressure stable ? Continue with his home blood pressure medications 01/03: His LFTs are improving with steroid therapy. He will need to calculate a Anyi score on day 5 to see if he will benefit from steroids for 30 days. I gave him another dose of vitamin K yesterday It decrease his INR down to 1.3. He is still on antibiotics and doing well. Autoimmune labs are pending. Continue current work-up. 01/04: His hemoglobin is slightly down today. I suspect that is just from alcoholic hepatitis and alcoholic gastritis. From his 3 to 4-day Lille score he shows a benefit to keep steroids going. Therefore he will need it for 30 days. His LFTs are improving very well. Agree with continuing current management. 01/05: Bilirubin is slightly up today. I would give him another dose of Mucomyst at this time. It can take 8 to 12 weeks with his bilirubin to go with down to normal. He is only on 0.5 mg/kg dose of steroid for alcoholic hepatitis. Typically it is 1 mg up to 2.5 mg/kg while in the hospital and transitioned to 0.5 mg as an outpatient. As long as he is improving I do not want to increase his dose of steroids because it can increase his risk of infection while he is in an acute inflammatory state of acute alcoholic hepatitis. He may need a dose of diuretics tomorrow. I would only give him Lasix 20 mg IV a day. Continue bowel regimen with addition of narcotics. 01/06: Infection increases mortality in patients with alcoholic hepatitis. Multiple risk factors are documented in the literature that includes, but are not limited to, antibiotics use, advanced age, and gastric acid suppression. Severe acute hepatitis is a risk factor for an acute infection such as C. difficile colitis as the body is fighting alcoholic hepatitis in the setting of hospital with steroid and PPI usage. Appreciate infectious disease consultation and the patient will be started on 500 mg of oral vancomycin every 6 hours. I will continue steroids at this time. If the patient is white count continues to go up and his bilirubin continues to go up then we will stop the steroids. The reduction of inflammation within the colon by steroids may help to facilitate clearance of the C difficile toxins and recovery from the disease. In our patient, the initial effect of the steroids was likely anti-inflammatory, and his liver as the clinical symptoms of alcoholic hepatitis improved. There have been some case reports of steroids helping C. difficile clearance in patients with inflammatory bowel disease. I do not know if there will be any benefit to alcohol hepatitis with concomitant C. difficile colitis on steroids and vancomycin for acute C. difficile colitis. DVT: SCDs Charges/Coding Visit Charges Inpatient E&M: 99188 [facility] Hosp L3
--- NOTE | 2023-01-06 18:37 | DCINST_ITS ---
Discharge Instructions Diet Discharge Diet: No restrictions Follow Up Care Test Results: Test results from this visit will be discussed in further detail at your follow- up appointment, if applicable. Discharge Plan Admission Admit Date/Time: 01/01/23 18:05 Primary Reason for Your Visit: Generalized weakness Attending Provider: Park Mendoza Primary Care Provider: Susie Betancourt Consulting Providers: Hazel Rodas; Mika Santana; Donnie Reyes Instructions Patient Instructions: Addiction Questionnaire, Addiction: Your Treatment Optio ns Discharge Orders/Prescriptions Prescriptions: No Action alprazolam 1 mg tablet 1 mg PO QHS amlodipine 2.5 mg tablet 2.5 mg PO DAILY diazepam 5 mg tablet 5 mg PO DAILY PRN PRN (Reason: ANXIETY) clonidine HCl 0.1 mg tablet 0.1 mg PO DAILY PRN PRN (Reason: Hypertension) Rx Instructions: TAKE 1 TAB DAILY NEEDED FOR BP GREATER THAN 160/90 tramadol 50 mg tablet 100 mg PO Q8H PRN (Reason: pain) Referrals / Follow Up: Susie Betancourt MD [Primary Care Provider] - Within 1 Week Disposition Disposition (needs filled in before D/C Order can be placed): Acute Care Hospital
--- NOTE | 2023-01-06 18:39 | DS.PCM_ITS ---
Providers Date of Admission: 01/01/23 Date of Discharge: 01/06/23 Primary Care Physician: Dr. Susie Betancourt MD Consultations 01/01/23 18:56 Consult: Gastroenterology Routine Consulting Provider: [facility] Reason for Consult: Alchoholic Hepatitis EMERGENT Consult: No Notified: Yes Date Notified: 01/01/23 Time Notified: 18:07 Method of Notification: Verbal 01/06/23 08:24 Consult: Infectious Disease Routine Consulting Provider: Donnie Reyes Reason for Consult: new cdiff ifxn, wbc 18, acute alc hepatitis, requiring iv steroids EMERGENT Consult: No MD Notified: Yes Date Notified: 01/06/23 Time Notified: 08:47 Method of Notification: Text Reason For Visit: ALCOHOLIC HEPATITIS Diagnosis Discharge Diagnosis (1) Acidosis, lactic: Status: Acute Code(s): E87.20 - Acidosis, unspecified (2) Acute hypokalemia: Status: Acute Code(s): E87.6 - Hypokalemia (3) Alcoholic hepatitis: Status: Acute Code(s): K70.10 - Alcoholic hepatitis without ascites (4) Coagulopathy: Status: Acute Code(s): D68.9 - Coagulation defect, unspecified (5) Jaundice: Status: Acute Code(s): R17 - Unspecified jaundice (6) Sinus tachycardia: Status: Acute Code(s): R00.0 - Tachycardia, unspecified (7) Hyperbilirubinemia: Status: Acute Code(s): E80.6 - Other disorders of bilirubin metabolism (8) Alcohol abuse: Status: Acute Code(s): F10.10 - Alcohol abuse, uncomplicated Plan #Acute alcoholic hepatitis with elevated hyperbilirubinemia with elevated INR despite being not being on Coumadin #C. difficile infection #Macrocytic anemia #HTN #Hx anxiety and chronic pain Medications at Discharge Home Medications alprazolam 1 mg tablet 1 mg PO QHS anxiety 01/01/23 amlodipine 2.5 mg tablet 2.5 mg PO DAILY blood pressure 01/01/23 clonidine HCl 0.1 mg tablet 0.1 mg PO DAILY PRN PRN Hypertension 01/01/23 diazepam 5 mg tablet 5 mg PO DAILY PRN PRN ANXIETY 01/01/23 tramadol 50 mg tablet 100 mg PO Q8H PRN pain 01/01/23 Hospital Course Summary of Care Provided Minutes Spent on Discharge: 45 Hospital Course: 67-year-old male with a history of hypertension and tobacco use who presented to [facility] 01/01/2023 with generalized weakness. His bilirubin was found to be 22 and LFTs were mildly elevated. It had been revealed he had drank heavily for 2 months with his last drink about a week prior to admission and progressive weakness. CT on admission suspicious for infection versus inflammatory enterocolitis with marked hepatic steatosis and small volume ascites. Initially was also unclear if maybe he had a GI bleed and he was started on PPI, octreotide, Rocephin due to it being unclear if he had cirrhosis and possible varices. That ultimately was ruled out he was diagnosed with alcoholic hepatitis. There was consideration of liver biopsy however he improved with steroids but on 01/05 bilirubin began to go back up and it was 16 and subsequently increased to 18.6 with 3 increase in LFTs. He also had increased white blood cell count and diarrhea and was found to be C. difficile positive. Vancomycin was started. It was discussed with gastroenterology who felt he likely needed a liver biopsy however given the C. difficile and increasing complexity was recommended he be transferred to tertiary facility. Patient accepted to [facility] after discussing with both her motors and controls tester and hospitalist. Weight / BMI Weight Weight: 70.5 kg Body Mass Index (BMI) 24.3 ABG / Lab / Microbiology Data 01/06/23 04:40 01/06/23 04:40 Laboratory: Laboratory Results - last 24 hr 01/05/23 05:00: Vitamin B12 957 H, Vitamin D 25-Hydroxy 42.9 01/06/23 04:40: WBC 18.3 H, RBC 3.30 L, Hgb 11.5 L, Hct 32.8 L, MCV 99.4 H, MCH 34.8 H, MCHC 35.1, RDW Std Deviation 64.6 H, RDW Coeff of Marla 17.7 H, Plt Count 329, MPV 11.4, Immature Gran % (Auto) 3.200 H, Neut % (Auto) 81.0 H, Lymph % (Auto) 8.0 L, [place] % (Auto) 7.2, Eos % (Auto) 0.1, Baso % (Auto) 0.5, Absolute Neuts (auto) 14.9 H, Absolute Lymphs (auto) 1.46, Nucleated RBC % 0.2, ESR 21 H, PT 15.3 H, INR 1.2, Sodium 138, Potassium 3.6, Chloride 109 H, Carbon Dioxide 23.0, Anion Gap 6, BUN 17, Creatinine 0.89, Estim Creat Clear Calc 76.33, Est GFR (MDRD) Af Amer 110, Est GFR (MDRD) Non-Af 91, BUN/Creatinine Ratio 19.1, Glucose 107 H, Calcium 8.4 L, Total Bilirubin 18.60 H*, AST 113 H, ALT 81 H, Alkaline Phosphatase 225 H, Lactate Dehydrogenase 254 H, C-React Prot Ext Range 27.00 H, Total Protein 5.1 L, Albumin 1.5 L, Globulin 3.6, Albumin/Globulin Ratio 0.4 L 01/06/23 07:07: Lactic Acid 1.0, Ammonia < 10.0 L Microbiology: Microbiology 01/05/23 14:43 Stool C. difficile GDH Antigen & Toxins - Final Toxigenic C. difficile 01/04/23 12:51 Stool Stool Occult Blood ([facility]) - Final Occult Blood Positive D/C Instructions Discharge Diet: No restrictions Meaningful Use Info Meaningful Use Diagnoses (Choose all that apply): None applicable Discharge Plan Admission Admit Date/Time: 01/01/23 18:05 Primary Reason for Your Visit: Generalized weakness Attending Provider: Park Mendoza Primary Care Provider: Susie Betancourt Consulting Providers: Hazel Rodas; Mika Santana; Donnie Reyes Instructions Patient Instructions: Addiction Questionnaire, Addiction: Your Treatment Options Discharge Orders/Prescriptions Prescriptions: No Action alprazolam 1 mg tablet 1 mg PO QHS amlodipine 2.5 mg tablet 2.5 mg PO DAILY diazepam 5 mg tablet 5 mg PO DAILY PRN PRN (Reason: ANXIETY) clonidine HCl 0.1 mg tablet 0.1 mg PO DAILY PRN PRN (Reason: Hypertension) Rx Instructions: TAKE 1 TAB DAILY NEEDED FOR BP GREATER THAN 160/90 tramadol 50 mg tablet 100 mg PO Q8H PRN (Reason: pain) Referrals / Follow Up: Susie Betancourt MD [Primary Care Provider] - Within 1 Week Disposition Disposition (needs filled in before D/C Order can be placed): Acute Care Hospital Charges/Coding Visit Charges Inpatient E&M: 36428 Disch Hosp >30min
[2023-01-06 19:55] VITALS: BP 129/81; PULSE 88; RESP 18; TEMP 36.6; O2SAT 93
== END 2023-01-06 20:25 | disposition short-term general hospital (02) | DRG 433 ==
LOC: ED 18:38 → PCU 18:40
PROVIDERS: Family Medicine; Internal Medicine Gastroenterology; Admitting Provider Internal Medicine; Emergency Provider Emergency Medicine; PCP Internal Medicine; Visit Provider Internal Medicine
DX: K70.10 Alcoholic hepatitis without ascites (principal); A04.72 Enterocolitis due to Clostridium difficile, not specified as recurrent; K76.6 Portal hypertension; E87.20 Acidosis, unspecified; E88.09 Other disorders of plasma-protein metabolism, not elsewhere classified; K74.60 Unspecified cirrhosis of liver; K76.89 Other specified diseases of liver; F17.210 Nicotine dependence, cigarettes, uncomplicated; E87.6 Hypokalemia; K76.0 Fatty (change of) liver, not elsewhere classified; F10.10 Alcohol abuse, uncomplicated; I10 Essential (primary) hypertension; K29.20 Alcoholic gastritis without bleeding; D53.9 Nutritional anemia, unspecified; R41.82 Altered mental status, unspecified; R79.1 Abnormal coagulation profile; Z79.2 Long term (current) use of antibiotics; Y90.9 Presence of alcohol in blood, level not specified
CPT/HCPCS: 36415; 70450; 74177; 80048; 80053; 80074; 80076; 80329; 81001; 82140; 82248; 82274; 82306; 82607; 82746; 83605; 83615; 83690; 83735; 84100; 84443; 85025; 85610; 85652; 85730; 86140; 86850; 86900; 86901; 87493; 87506; 93005; 97110; 97116; 97162; 97166; 97530; 97535; 97802; 97803; 99285; J7030; Q9967; A4216; G0480; J3490

== ENCOUNTER 2023-02-07 15:52 | Emergency (ER) | payer OTHER, SELFPAY ==
[2023-02-07 15:53] VITALS: BP 118/81; PULSE 123; RESP 18; TEMP 36.9; O2SAT 98; BMI 25.3
[2023-02-07 15:54] VITALS: BP 118/78; PULSE 122; RESP 20; TEMP 36.6; O2SAT 96
[2023-02-07] MEDS: Ondansetron 4 MG/2 ML Vial IV (16:30)
[2023-02-07] MEDS: Morphine 4 MG/ML Syringe IV ×2 (16:31→19:48)
--- NOTE | 2023-02-07 16:34 | EX.ED.DYSGE1 ---
HPI History of Present Illness Chief Complaint: Abd Pain Informant: patient and spouse/S.O. Narrative Narrative: Patient presents with a nominal pain requesting paracentesis. It sounds like this patient was diagnosed with liver failure and cirrhosis over the last couple months. They think it was likely due to a combination of intermittent alcohol use and years of being on oxycodone. He has not drank in over 2 months. He states he used to drink heavily for a month and that he would stop for a month or 2 and then drink heavily. He was never a continuous drinker. He was admitted to [facility] about 1 month ago. He had extensive work-up including CTs and MRIs of the abdomen. He saw gastroenterology, Dr. Harris. He has follow-up this coming Friday. He has never had a paracentesis but evidently it was discussed. He states he has had continual pain in his abdomen for 2 months. Its not suddenly getting worse. He is not having fevers or chills. He states his abdomen just feels tight and painful and he was told that a paracentesis would likely help this for a period of time. He does not know what they plan to do long-term. He has not heard anything about a TIPS procedure. He was seen by his primary physician today. They called over and they were notified that we are not able to do paracentesis. But somehow patient was not able to get that message before arrival so he is somewhat frustrated. I explained that the plan was to try to get him the care he needed though. [facility] Medical History Acidosis, lactic Acute hypokalemia Alcohol abuse Hypertension Tobacco abuse Home Medications alprazolam 1 mg tablet 1 mg PO QHS anxiety 01/01/23 [History Last Taken Unknown] amlodipine 2.5 mg tablet 2.5 mg PO DAILY blood pressure 01/01/23 [History Last Taken Unknown] clonidine HCl 0.1 mg tablet 0.1 mg PO DAILY PRN PRN Hypertension 01/01/23 [History Last Taken Unknown] diazepam 5 mg tablet 5 mg PO DAILY PRN PRN ANXIETY 01/01/23 [History Last Taken Unknown] tramadol 50 mg tablet 100 mg PO Q8H PRN pain 01/01/23 [History Last Taken Unknown] furosemide 20 mg tablet (Lasix) 20 mg PO DAILY #3 tabs 02/07/23 [Rx Last Taken Unknown] ondansetron 4 mg disintegrating tablet 4 mg PO Q8H PRN PRN Nausea #10 tabs 02/08/23 [Rx Last Taken Unknown] oxycodone 5 mg tablet 5 mg PO Q8H PRN pain 3 days #10 tabs 02/08/23 [Rx Last Taken Unknown] Allergy/AdvReac Type Severity Reaction Status Date / Time bupropion [From Wellbutrin] Allergy Intermediate mental Verified 02/07/23 15:55 status change/memory problems diclofenac Allergy Mild Rash Verified 02/07/23 15:55 gabapentin AdvReac Mild mouth Verified 02/07/23 15:55 iritation and burning sensation lansoprazole [From Prevacid] AdvReac Mild Diarrhea Verified 02/07/23 15:55 clindamycin AdvReac thrush oral Verified 02/07/23 15:55 fentanyl AdvReac Other Verified 02/07/23 15:55 NSAIDS (Non-Steroidal AdvReac Diarrhea Verified 02/07/23 15:55 Anti-Inflamma Social History household members: spouse housing: house Smoking Status: Current some day smoker tobacco type: cigarettes alcohol intake: current details: 1/2 L daily up until 2 weeks ago substance use type: does not use ROS ROS ED ROS Narrative A complete review of systems was performed and is negative except as documented in the history of present illness. Some specific details below. Constitutional: No recent fevers or chills now or for the last month. No recent infections. EYE: No visual complaints or pain. He is icteric ENT: No difficulty swallowing. No swelling. No pain. CV: No chest pain or palpitations. Respiratory: No dyspnea. No hemoptysis. No difficulty taking breaths. GI: Please see history of present illness. Appetite is down but no nausea or vomiting. He states he had nausea earlier in the month but that is now better. : No frequency dysuria or hematuria. Musculoskeletal: No recent trauma. No pains. Skin: No rash. Nondiaphoretic. He is a bit jaundiced. Neuro: No focal weakness or numbness. Endocrine: No polyuria or polydipsia. EXAM Physical Exam Narrative Exam Narrative: CONSTITUTIONAL: Patient is nontoxic in appearance. The patient looks comfortable. HEENT: No notable trauma. Mucous membranes moist. No sinus tenderness. No indication of pain with swallowing. EYES: No conjunctival injection. He is icteric. CARDIOVASCULAR: Mildly tachycardic rate. Regular rhythm. No notable murmur. No JVD. RESPIRATORY: No respiratory distress. Breathing is unlabored. No wheezes. No rhonchi. No rales. No pain with a deep breath. GASTROINTESTINAL: Abdomen is distended. He does have a small umbilical hernia that spontaneously reduces. He has mild tenderness mostly in the upper and upper right side of his abdomen. He states its been tender for the last month or 2. This is not different today than it has been. He does not have rebound or guarding. GENITOURINARY: No tenderness over the bladder. No CVA tenderness. MUSCULOSKELETAL: Atraumatic. He does have bilateral +1 peripheral edema. No cord. No tenderness along the deep venous system. No asymmetry. NEUROLOGICAL: Patient is alert and appropriate. No focal deficit noted. SKIN: He is mildly jaundiced. PSYCHIATRIC: Patient is calm. Mood is appropriate. Const Vital Signs: 02/07/23 15:53 02/07/23 15:54 02/07/23 19:30 Temperature 98.4 F 98 F Temperature Source Temporal Temporal Pulse Rate 123 H 122 H 87 Respiratory Rate 18 20 H 20 H Blood Pressure 118/81 H 118/78 118/89 H Blood Pressure Mean 93 91 98 Pulse Ox 98 96 97 Oxygen Delivery Method Room Air Room Air 02/07/23 21:00 Temperature Temperature Source Pulse Rate 89 Respiratory Rate 14 Blood Pressure 116/78 Blood Pressure Mean 90 Pulse Ox 97 Oxygen Delivery Method Room Air [facility] MDM Narrative Medical decision making narrative: Patient's CBC shows mildly high white count where its been before. His mild anemia but really at baseline. Platelets are normal. Patient's electrolytes show mild bump in the BUN and creatinine. He is given IV fluids. Patient's liver function test show very high total bilirubin. But this is down from his others. He was over 22 when he was admitted here a month ago. His was able to access outpatient records and his bilirubin was 12 about 5 days ago on Friday. Alk phos was up a bit at 550. INR is normal at 1.4. Patient's lipase is normal. This patient has had pain for a month or 2. He states his abdomen has been swollen for a month or 2 but it might be a little bit jj. But he has never been on diuretics. He has follow-up with gastroenterology on Friday. I did discuss the case with Dr. Spear. Plan will be to give him albumin and a liter of fluid. We will then give him Lasix and just a low-dose of Lasix for couple days to see if this will help his symptoms. I also found out the patient is out of his oxycodone. He had asked his doctor to cut this down. Because of this he is out. He is due for meds within the next few days. I explained that if I write for medications his doctor may have trouble prescribing. But he does have a an acute painful condition. I have trouble managing this over the weekend. I do not think admission is necessary. I will write for a few tablets. Lab Data Attestation: I reviewed the patient's lab results. Labs: Laboratory Results - last 24 hr 02/07/23 16:30 WBC 15.6 H RBC 3.23 L Hgb 10.8 L Hct 32.9 L MCV 101.9 H MCH 33.4 H MCHC 32.8 RDW Std Deviation 65.6 H RDW Coeff of Marla 17.5 H Plt Count 375 MPV 10.6 Immature Gran % (Auto) 0.900 Neut % (Auto) 71.9 H Lymph % (Auto) 17.1 L [place] % (Auto) 9.5 Eos % (Auto) 0.3 Baso % (Auto) 0.3 Absolute Neuts (auto) 11.3 H Absolute Lymphs (auto) 2.68 Nucleated RBC % 0 Differential Comment SCANNED PT 16.8 H INR 1.4 Sodium 139 Potassium 3.8 Chloride 106 Carbon Dioxide 26.0 Anion Gap 7 BUN 22 H Creatinine 1.41 H Estim Creat Clear Calc 48.18 Est GFR (MDRD) Af Amer 65 Est GFR (MDRD) Non-Af 53 L BUN/Creatinine Ratio 15.6 Glucose 114 H Lactic Acid 1.5 Calcium 8.3 L Total Bilirubin 9.60 H AST 99 H ALT 44 Alkaline Phosphatase 550 H Total Protein 5.7 L Albumin 1.4 L Globulin 4.3 H Albumin/Globulin Ratio 0.3 L Lipase < 10 L EKG Initial EKG: Comments: My independent interpretation of the patient's EKG done for upper abdominal pain shows a normal sinus rhythm with a rate of 99. No ventricular ectopy. No acute ST elevation or depression. NH interval, QRS duration are normal. QTc is a little bit toward the long end at 479 ms. Discharge Plan Triage Chief Complaint: Abd Pain ED Provider: Natalio Hamilton Dx/Rx/DC Orders Clinical Impression: Abdominal ascites, Alcoholic hepatitis, Chronic abdominal pain, Hypoalbuminemia Instructions: ED Ascites Prescriptions: New furosemide [Lasix] 20 mg tablet 20 mg PO DAILY Qty: 3 0RF ondansetron [ondansetron] 4 mg tablet,disintegrating 4 mg PO Q8H PRN PRN (Reason: Nausea) Qty: 10 0RF oxycodone 5 mg tablet 5 mg PO Q8H PRN (Reason: pain) 3 Days Qty: 10 0RF No Action alprazolam 1 mg tablet 1 mg PO QHS amlodipine 2.5 mg tablet 2.5 mg PO DAILY diazepam 5 mg tablet 5 mg PO DAILY PRN PRN (Reason: ANXIETY) clonidine HCl 0.1 mg tablet 0.1 mg PO DAILY PRN PRN (Reason: Hypertension) Rx Instructions: TAKE 1 TAB DAILY NEEDED FOR BP GREATER THAN 160/90 tramadol 50 mg tablet 100 mg PO Q8H PRN (Reason: pain) Primary Care Provider: Susie Betancourt Referrals: Susie Betancourt MD [Primary Care Provider] - Activity Restrictions/Additional Instructions: Follow-up with your information assoc, Dr. Harris ss scheduled on Friday. Disposition Disposition: Home, Self Care
[2023-02-07 16:42] LABS: Absolute Lymphocyte Count 2.68 X10^3/uL (0.83-4.51); Absolute Neutrophil Count 11.3 X10^3/uL (2.0-7.7); Basophil# 0.04 X10^3/uL; Basophil% 0.3 % (0-1); Eosinophil# 0.04 X10^3/uL; Eosinophils% 0.3 % (0-5); Hematocrit 32.9 % (40-54); Hemoglobin 10.8 g/dL (13.0-16.5); Lymphocyte # 2.68 X10^3/ul (0.83-4.51); Lymphocyte % 17.1 % (19-41); Mean Corp Hgb Conc 32.8 g/dL (32-36); Mean Corpuscular Hgb 33.4 pg (27.0-32.0); Mean Corpuscular Volume 101.9 fL (80-94); Mean Platelet Vol. 10.6 fl (6.2-12.0); Monocyte# 1.48 X10^3/uL; Monocyte% 9.5 % (0-10); NRBC Flagged by Analyzer 0 % (0-5); Neutrophil # 11.25 X10^3/uL (2.7-7.7); Neutrophil % 71.9 % (47-70); POSITIVE MORPHOLOGY YES; Platelet Count 375 K/mm3 (150-450); RBC Distribution Width CV 17.5 % (11.6-14.6); RBC Distribution Width SD 65.6 fl (35.1-43.9); Red Blood Count 3.23 M/mm3 (4.6-6.2); White Blood Count 15.6 K/mm3 (4.4-11.0)
[2023-02-07 16:44] LABS: Differential Indicated SCAN CRITERIA MET
[2023-02-07 16:54] LABS: International Normalized Ratio 1.4; Prothrombin Time (Protime)PT. 16.8 SECONDS (11.7-14.9)
--- NOTE | 2023-02-07 16:57 | EKG12_ITS ---
Test Reason : ABD PAIN Blood Pressure : / mmHG Vent. Rate : 099 BPM Atrial Rate : 099 BPM P-R Int : 156 ms QRS Dur : 074 ms QT Int : 374 ms P-R-T Axes : 032 -08 033 degrees QTc Int : 479 ms Sinus rhythm with Premature atrial complexes Low voltage QRS Borderline ECG Confirmed by DANTE FENG, NIKA ([id number]), editor sound BERTHA FELIZ ([id number]) on 02/10/2023 1:14:06 PM Referred By: Confirmed By:NIKA HOWELL MD
[2023-02-07 17:00] LABS: ALB/GLOB Ratio 0.3 RATIO (0.9-2.4); AST(SGOT) 99 U/L (15-37); Alanine Aminotransfer ALT/SGPT 44 U/L (16-61); Albumin, Serum 1.4 g/dL (3.2-5.0); Alkaline Phosphatase 550 U/L (45-117); Anion Gap 7 (5-15); BUN 22 mg/dL (7-18); BUN/Creat Ratio 15.6 RATIO (10-20); Calcium,Total 8.3 mg/dL (8.5-10.1); Chloride 106 mmol/L (98-107); Creatinine, Serum 1.41 mg/dL (0.70-1.30); EST Glomerular Filtration Rate 53 mL/min (>60); Est Glom Filt Rate - Afr Amer 65 mL/min (>60); Estimated Creatinine Clearance 48.18 ml/min; Globulin 4.3 g/dL (2.2-4.2); Glucose 114 mg/dL (74-106); Lipase < 10 U/L (13-75); Potassium 3.8 mmol/L (3.5-5.1); Protein, Total 5.7 g/dL (6.4-8.2); Sodium Level 139 mmol/L (136-145)
[2023-02-07 17:14] LABS: Differential Comment SCANNED; Lactic Acid 1.5 mmol/L (0.4-1.9)
[2023-02-07] MEDS: 0.9% Normal Saline 1,000 ML 999 ML IV (18:27)
[2023-02-07 19:30] VITALS: BP 118/89; PULSE 87; RESP 20; O2SAT 97
[2023-02-07] MEDS: Albumin Human 25% (100 mL) 25 GM/100 ML BAG IV ×2 (20:12→22:06)
[2023-02-07 21:00] VITALS: BP 116/78; PULSE 89; RESP 14; O2SAT 97
[2023-02-08] VITALS: BP 118/63; PULSE 87; RESP 14; O2SAT 97
[2023-02-08] MEDS: Furosemide 40 MG/4 ML Vial IV (00:10)
[2023-02-08 00:30] VITALS: BP 112/63; PULSE 86; RESP 16; O2SAT 97
== END 2023-02-08 00:32 | disposition home or self-care (01) ==
PROVIDERS: Emergency Provider Emergency Medicine; PCP Internal Medicine; Visit Provider Emergency Medicine
DX: K70.11 Alcoholic hepatitis with ascites (principal); G89.29 Other chronic pain; I10 Essential (primary) hypertension; E88.09 Other disorders of plasma-protein metabolism, not elsewhere classified; F17.210 Nicotine dependence, cigarettes, uncomplicated
CPT/HCPCS: 80053; 83605; 83690; 85025; 85610; 93005; 96361; 96365; 96366; 96375; 96376; 99282; J7030; P9047; A4216; J1940; J2405

== ENCOUNTER 2025-01-04 08:03 | Inpatient (IN) | payer MEDICARE, SELFPAY ==
[2025-01-04] VITALS (7 sets, daily range): BP systolic 145–150; BP diastolic 87–104; PULSE 85–106; RESP 18; TEMP 36.7–37.8; O2SAT 93–96; BMI 30.4; BMI 28.8
--- NOTE | 2025-01-04 08:48 | EDS_ITS ---
HPI History of Present Illness Chief Complaint: Bite Narrative Narrative: 69-year-old male, [id number] presents with cat bite to his right hand. He states that he was 2 cats yesterday evening that he thought were pets, but are actually stray cats. He sustained a bite to his right hand and scratches to his forearm. He believes his tetanus immunization is current, within the last 5 to 10 years. He denies other injuries. No fevers or chills, no nausea or vomiting. He went to urgent care today who told him that he needed to come to the emergency department for evaluation. No purulent drainage from skin tear to right hand. Tetanus Immunization: 5-10 years ROS ROS ED ROS Narrative Review of systems positive for cat bite and scratches with skin tear to dorsum of right hand. No fevers or chills. No nausea or vomiting. No purulent drainage, no exacerbating or alleviating factors. Positive swelling and redness to right hand. [facility] Medical History Acidosis, lactic Acute hypokalemia Alcohol abuse Hypertension Tobacco abuse Home Medications ?Medication ?Instructions ?Recorded ?Last Taken ?Type diazepam 5 mg tablet 5 mg PO DAILY PRN PRN ANXIET Y 01/01/23 Unknown History ondansetron 4 mg disintegrating 4 mg PO Q8H PRN PRN Na usea #10 tabs 02/08/23 Unknown Rx tablet albuterol sulfate 90 mcg/actuation 2 puff inhalation Q 8H PRN 01/04/25 Unknown History aerosol inhaler (Ventolin HFA) bronchospasm metoprolol succinate 25 mg 25 mg PO BID 01/04/25 Unkno wn History tablet,extended release 24 hr omeprazole 20 mg capsule,delayed 20 mg PO DAILY Unknown History release oxycodone 10 mg tablet 10 mg PO 4X/DAY PRN PRN pain 01/04/25 Unknown History Allergy/AdvReac Type Severity Reaction Status Date / Time bupropion (From Wellbutrin) Allergy Intermediate mental Verified 01/04/25 08:04 status change/memory problems diclofenac Allergy Mild Rash Verified 01/04/25 08:04 gabapentin AdvReac Mild mouth Verified 01/04/25 08:04 iritation and burning sensation lansoprazole (From Prevacid) AdvReac Mild Diarrhea Verified 01/04/25 08:04 clindamycin AdvReac thrush oral Verified 01/04/25 08:04 fentanyl AdvReac Other Verified 01/04/25 08:04 NSAIDS (Non-Steroidal AdvReac Diarrhea Verified 01/04/25 08:04 Anti-Inflamma Social History household members: spouse housing: house Smoking Status: Current some day smoker tobacco type: cigarettes alcohol intake: current details: 1/2 L daily up until 2 weeks ago substance use type: does not use EXAM Physical Exam Narrative Exam Narrative: Afebrile. Vital signs noted. Nontoxic-appearing. Cardiovascular examination reveals regular rate and rhythm. Lungs are clear to auscultation bilaterally. Abdomen is soft and nontender without guarding or rebound. Neurological examination nonfocal, nonlateralizing. Inspection of the right hand does reveal a 1.5 to 2 cm skin tear without active bleeding to the dorsum of the right hand. It is more flap-like. Positive swelling in the right hand. Neurovascularly intact distally to fingers. Able to oppose thumb. Good capillary refill. No noted purulent drainage. Const Vital Signs: 01/04/25 08:03 01/04/25 08:06 01/04/25 10:18 Temperature 98.1 F 98.1 F 100.1 F H Temperature Source Temporal Oral Oral Pulse Rate 85 85 102 H Respiratory Rate 18 18 18 Blood Pressure 149/87 H 149/87 H 150/104 H Blood Pressure Mean 107 107 119 Pulse Ox 93 93 96 Oxygen Delivery Method Room Air Room Air Room Air 01/04/25 10:22 Temperature 100.1 F H Temperature Source Pulse Rate 102 H Respiratory Rate 18 Blood Pressure 145/94 H Blood Pressure Mean 111 Pulse Ox 96 Oxygen Delivery Method MDM MDM MDM Narrative Medical decision making narrative: Differential diagnosis includes but not limited to cellulitis versus necrotizing fasciitis. In discussion with the patient, he does prefer outpatient treatment. In review of his problem list, he has history of jaundice and coagulopathy from alcoholic hepatitis. He states that he has been being treated for liver problems. Clinically I doubt necrotizing fasciitis. I will obtain x-rays and laboratory work and he will be given his first dose of Zosyn intravenously. I reviewed his laboratory work and he has a leukocytosis of 16.1 but when compared to prior laboratories, it is a chronic leukocytosis. Hemoglobin normal at 14.2 with hematocrit 42.0. Review of his BMP shows normal sodium of 139 and potassium 4.4 with anion gap normal at 12, BUN of 15 and creatinine 1.50. Glucose elevated at 128 which I think is nonspecific. I doubt diabetic ketoacidosis given his normal anion gap of 12. On my independent interpretation of the x-ray of the right hand, there is no gas in the tissue, he has chronic changes and arthritic changes, but no acute fracture. There is soft tissue swelling noted as well. No foreign body. I reviewed the radiology report which confirms my independent interpretation. I discussed the patient with Dr. Medel with plastic/hand surgery. He has evaluated the patient in the ED. Given the amount of swelling, and history of cirrhosis, it was felt that the patient should be admitted to the medicine service with consultation to plastic/hand. He ordered cultures, and agrees with administering the patient's Zosyn. Patient will continue soaks of the hand. I discussed the patient with Dr. Cole who will admit the patient. Disposition is admit in stable condition. History & Record Review Discussion w/independent historian: Patient and Family Lab Data Attestation: I reviewed the patient's lab results. Labs: Laboratory Results - last 24 hr 01/04/25 09:13 WBC 16.1 H RBC 4.26 L Hgb 14.2 Hct 42.0 MCV 98.6 H MCH 33.3 H MCHC 33.8 RDW Std Deviation 49.0 H RDW Coeff of Marla 13.8 Plt Count 240 MPV 10.0 Immature Gran % (Auto) 0.400 Neut % (Auto) 78.3 H Lymph % (Auto) 10.1 L [place] % (Auto) 10.1 H Eos % (Auto) 0.9 Baso % (Auto) 0.2 Absolute Neuts (auto) 12.6 H Absolute Lymphs (auto) 1.62 Nucleated RBC % 0 Platelet Estimate A Sodium 139 Potassium 4.4 Chloride 100 Carbon Dioxide 27.2 Anion Gap 12 BUN 15 Creatinine 1.50 H Estim Creat Clear Calc 48.32 L Est GFR (MDRD) Non-Af 50 L BUN/Creatinine Ratio 10.3 Glucose 128 H Calcium 9.1 Radiography X-Ray: Read by ED Physician, Read by Radiologist, No Fracture and - (Soft tissue swelling) Diagnostic Testing: 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 There is soft tissue swelling in the metacarpal region on the lateral view with no visible radiopaque foreign body. Reading Location: [facility] Discharge Plan Triage Chief Complaint: Bite ED Provider: Sylvain Berg Dx/Rx/DC Orders Prescriptions: No Action diazepam 5 mg tablet 5 mg PO DAILY PRN PRN (Reason: ANXIETY) ondansetron [ondansetron] 4 mg tablet,disintegrating 4 mg PO Q8H PRN PRN (Reason: Nausea) Qty: 10 0RF omeprazole 20 mg capsule,delayed release(DR/EC) 20 mg PO DAILY metoprolol succinate 25 mg tablet extended release 24 hr 25 mg PO BID oxycodone 10 mg tablet 10 mg PO 4X/DAY PRN PRN (Reason: pain) albuterol sulfate [Ventolin HFA] 90 mcg/actuation HFA aerosol inhaler 2 puff inhalation Q8H PRN (Reason: bronchospasm) Primary Care Provider: Susie Betancourt Referrals: Susie Betancourt MD [Primary Care Provider] - Print Language: Slovenian
[2025-01-04 09:22] LABS: Hematocrit 42.0 % (40-54); Hemoglobin 14.2 g/dL (13.0-16.5); Immature Granulocytes Count 0.070 X10^3/uL (0.0-0.0); Mean Corp Hgb Conc 33.8 g/dL (32-36); Mean Corpuscular Volume 98.6 fL (80-94); Mean Platelet Vol. 10.0 fl (6.2-12.0); NRBC Flagged by Analyzer 0 % (0-5); POSITIVE DIFFERENTIAL YES; Platelet Count 240 K/mm3 (150-450); RBC Distribution Width CV 13.8 % (11.6-14.6); RBC Distribution Width SD 49.0 fl (35.1-43.9); Red Blood Count 4.26 M/mm3 (4.6-6.2); White Blood Count 16.1 K/mm3 (4.4-11.0)
[2025-01-04 09:28] LABS: Differential Indicated SCAN CRITERIA MET
--- NOTE | 2025-01-04 09:29 | RAD_ITS ---
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 There is soft tissue swelling in the metacarpal region on the lateral view with no visible radiopaque foreign body. Osteopenia is noted. There is no visible atherosclerosis. 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 There is soft tissue swelling in the metacarpal region on the lateral view with no visible radiopaque foreign body. Reading Location: [facility]
[2025-01-04 09:59] LABS: Anion Gap 12 (5-15); BUN 15 mg/dL (4-19); BUN/Creat Ratio 10.3 RATIO (10-20); Calcium,Total 9.1 mg/dL (7.6-11.0); Carbon Dioxide 27.2 mmol/L (21.0-32.0); Chloride 100 mmol/L (98-108); Estimated Creatinine Clearance 48.32 ml/min (50-250); Glucose 128 mg/dL (70-99); Potassium 4.4 mmol/L (3.3-5.1)
--- NOTE | 2025-01-04 10:05 | EX.PCM.CON.S ---
Assessment & Plan Assessment/Plan (1) Cellulitis of hand: (2) Cat bite of hand: PLAN: Plan Patient with right dorsal hand cat bite without signs of any joint infection at this time. We need to monitor for development of septic joint. Also going to monitor for any fluid collections. I am recommending admission for IV antibiotics as well as rest and elevation of the right upper extremity. Plan for 3 times per day Dial soap soaks. Follow-up cultures. Plastic surgery will follow HPI Consult Data Date of Consult: 01/04/25 HPI Narrative HPI Narrative: TAYLOR JASMINE is a 69 M who presents with the right hand dorsal Bite of 1 days duration. Patient reports that he was bitten and scratched by a friend's house cat yesterday night (cat is up-to-date on his vaccines) on the right dorsal hand. This morning he woke up with significant dorsal hand pain and swelling, and decided to go to the emergency department. He reports tetanus update 5 years ago. Patient reports sharp severe pain in the right hand worsened by movements and improved with rest and elevation. He reports the pain to be relatively superficial and not within the joint or irritated by joint movement. X-ray did not demonstrate any foreign bodies or acute fractures. Today in the ED he is tachycardic to 102 but is afebrile. He has a white count of 16,000. Patient has a history of cirrhosis and has elevated creatinine consistent with kidney disease. [facility] Medical History Tobacco abuse Alcohol abuse Acidosis, lactic Acute hypokalemia Hypertension Home Medications ?Medication ?Instructions ?Recorded ?Last Taken ?Type diazepam 5 mg tablet 5 mg PO DAILY PRN PRN ANXIETY 01/01/23 Unknown History ondansetron 4 mg disintegrating 4 mg PO Q8H PRN PRN Nausea #10 tabs 02/08/23 Unknown Rx tablet albuterol sulfate 90 mcg/actuation 2 puff inhalation Q8H PRN 01/04/25 Unknown History aerosol inhaler (Ventolin HFA) bronchospasm metoprolol succinate 25 mg 25 mg PO BID 01/04/25 Unknown History tablet,extended release 24 hr omeprazole 20 mg capsule,delayed 20 mg PO DAILY 01/04/25 Unknown History release oxycodone 10 mg tablet 10 mg PO 4X/DAY PRN PRN pain 01/04/25 Unknown History Allergy/AdvReac Type Severity Reaction Status Date / Time bupropion (From Wellbutrin) Allergy Intermediate mental Verified 01/04/25 08:04 status change/memory problems diclofenac Allergy Mild Rash Verified 01/04/25 08:04 gabapentin AdvReac Mild mouth Verified 01/04/25 08:04 iritation and burning sensation lansoprazole (From Prevacid) AdvReac Mild Diarrhea Verified 01/04/25 08:04 clindamycin AdvReac thrush oral Verified 01/04/25 08:04 fentanyl AdvReac Other Verified 01/04/25 08:04 NSAIDS (Non-Steroidal AdvReac Diarrhea Verified 01/04/25 08:04 Anti-Inflamma Social History household members: spouse housing: house Smoking Status: Current some day smoker tobacco type: cigarettes alcohol intake: current details: 1/2 L daily up until 2 weeks ago substance use type: does not use Physical Exam Narrative Right Upper Extremity Inspection: Abrasions and lacerations from the cat bite with open wounds. Significant swelling. No lymphadenopathy. There is induration but no signs of any purulent drainage at this time. Culture was obtained during the exam of one of the open wounds. Palpation: No pain with axial loading of the joint or with manipulation of the joint. Motor: Able to bend and extend all MP, PIP, and DIP joints. Sensory: Intact to light touch on the radial and ulnar borders. Vascular: Finger tips are warm and well perfused with <2 second capillary refill. Lab / Micro Data 01/04/25 09:13 01/04/25 09:13 Labs: Laboratory Results - last 24 hr 01/04/25 09:13: WBC 16.1 H, RBC 4.26 L, Hgb 14.2, Hct 42.0, MCV 98.6 H, MCH 33.3 H, MCHC 33.8, RDW Std Deviation 49.0 H, RDW Coeff of Marla 13.8, Plt Count 240, MPV 10.0, Immature Gran % (Auto) 0.400, Neut % (Auto) 78.3 H, Lymph % (Auto) 10.1 L, [place] % (Auto) 10.1 H, Eos % (Auto) 0.9, Baso % (Auto) 0.2, Absolute Neuts (auto) 12.6 H, Absolute Lymphs (auto) 1.62, Nucleated RBC % 0, Sodium 139, Potassium 4.4, Chloride 100, Carbon Dioxide 27.2, Anion Gap 12, BUN 15, Creatinine 1.50 H, Estim Creat Clear Calc 48.32 L, Est GFR (MDRD) Non-Af 50 L, BUN/Creatinine Ratio 10.3, Glucose 128 H, Calcium 9.1 Imaging Radiology Impression Hand X-Ray 01/04/25 09:29 IMPRESSION: 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 There is soft tissue swelling in the metacarpal region on the lateral view with no visible radiopaque foreign body. Reading Location: [facility] Charges/Coding Visit Charges Office Visits / Consults: [id number] OV L4 New 45min
[2025-01-04] MEDS: Piperacil/Tazobactam 3.375 GM in 0.9% Normal Saline (50mL MB+) 50 ML IV (10:15)
--- NOTE | 2025-01-04 10:30 | HP.PCM.HOS_ITS ---
HPI - General General Date of Admission: 01/04/25 Date of Service: 01/04/25 Chief Complaint: Right hand cat bite yesterday night. HPI Narrative TAYLOR JASMINE, is a 69 M came to ED after he had a right hand cat bite mainly on the dorsum of hand and scratch on the right forearm. He was trying to separate 2 cats which he thinks were neighbors pets. He said it was not wild. He has superficial wound on the right dorsum of hand with swelling and not able to close fist completely. No fever. No purulent drainage. He had tetanus vaccine within 5 to 10 years In ED, patient was seen by plastic surgeon, cultures were taken and recommended admission with antibiotics and soap and soap. Past medical history: Patient stated he follows GI for cirrhosis, exact cause unclear possible alcohol/nonalcoholic. He also had 3 times paracentesis last 1 about 3 years ago. He had EGD about 2 to 3 months ago and was told he has Villagran's esophagus. He denies history of diabetes melitis. [facility] Medical History Tobacco abuse Alcohol abuse Acidosis, lactic Acute hypokalemia Hypertension Home Medications ?Medication ?Instructions ?Recorded ?Last Taken ?Type diazepam 5 mg tablet 5 mg PO DAILY PRN PRN ANXIET Y 01/01/23 Unknown History ondansetron 4 mg disintegrating 4 mg PO Q8H PRN PRN Na usea #10 tabs 02/08/23 Unknown Rx tablet albuterol sulfate 90 mcg/actuation 2 puff inhalation Q 8H PRN 01/04/25 Unknown History aerosol inhaler (Ventolin HFA) bronchospasm metoprolol succinate 25 mg 25 mg PO BID 01/04/25 Unkno wn History tablet,extended release 24 hr omeprazole 20 mg capsule,delayed 20 mg PO DAILY Unknown History release oxycodone 10 mg tablet 10 mg PO 4X/DAY PRN PRN pain 01/04/25 Unknown History Allergy/AdvReac Type Severity Reaction Status Date / Time bupropion (From Wellbutrin) Allergy Intermediate mental Verified 01/04/25 08:04 status change/memory problems diclofenac Allergy Mild Rash Verified 01/04/25 08:04 gabapentin AdvReac Mild mouth Verified 01/04/25 08:04 iritation and burning sensation lansoprazole (From Prevacid) AdvReac Mild Diarrhea Verified 01/04/25 08:04 clindamycin AdvReac thrush oral Verified 01/04/25 08:04 fentanyl AdvReac Other Verified 01/04/25 08:04 NSAIDS (Non-Steroidal AdvReac Diarrhea Verified 01/04/25 08:04 Anti-Inflamma Surgical History (Updated 01/04/25 @ 12:18 by Jaci Ashley) H/O umbilical hernia repair History of esophagogastroduodenoscopy (EGD) Social History household members: spouse housing: house Smoking Status: Current some day smoker tobacco type: cigarettes alcohol intake: current details: 1/2 L daily up until 2 weeks ago substance use type: does not use ROS ROS Narrative Constitutional: Reports fatigue and weakness. No fever. HEENT: Reports systems reviewed and no addt'l complaints, except as documented Respiratory/Chest: Has allergic bronchitis with hypersensitivity with seasonal cough. No acute shortness of breath or respiratory distress or wheezing. CVS: No chest pain or shortness of breath. Denies chronic cardiac disease Gastrointestinal: Denies coffee ground emesis, hematemesis or vomiting Genitourinary: Denies burning urination or new urinary tract symptoms Musculoskeletal: Bilateral leg swelling. Denies acute joint pain or limited range of motion. No acute injury Neurologic: Denies seizure-like symptoms. skin: Wound over right hand and scratches Endocrinology: Reports systems reviewed and no addt'l complaints, except as documented Hematologic/Lymphatic: Reports systems reviewed and no addt'l complaints, except as documented Rest 14 ROS are negative except as mentioned in HPI Vital Signs Vital Signs Vital Signs: 01/04/25 08:03 01/04/25 08:06 01/04/25 10:18 Temperature 98.1 F 98.1 F 100.1 F H Temperature Source Temporal Oral Oral Pulse Rate 85 85 102 H Respiratory Rate 18 18 18 Blood Pressure 149/87 H 149/87 H 150/104 H Blood Pressure Mean 107 107 119 Pulse Ox 93 93 96 Oxygen Delivery Method Room Air Room Air Room Air 01/04/25 10:22 Temperature 100.1 F H Temperature Source Pulse Rate 102 H Respiratory Rate 18 Blood Pressure 145/94 H Blood Pressure Mean 111 Pulse Ox 96 Oxygen Delivery Method Weight Weight: 188 lb 7.924 oz Body Mass Index (BMI) 30.4 Physical Exam Narrative General: Alert, Oriented x3, Cooperative. BMI 30.4 kg/m? HEENT: Atraumatic, PERRLA, EOMI, Normocephalic. Mild puffiness of the face. Oral: No Gingival or Mucosal Lesions/ Ulcerations Neck: Supple, No JVD, Negative Carotid Bruits Chest wall/Lungs: Air entry diminished in bilateral lung bases. No crepitation/rhonchi Cardiovascular: Regular rate and rhythm, Normal S1,S2, No M/G/R Abdomen: Bowel Sounds Present, Soft, Non Tender, mild swelling, shifting dullness present. Mild to moderate ascites. : No dysuria. No renal angle tenderness. No suprapubic tenderness. Extremities: Bilateral pitting 2+ leg edema, Capillary Refill Less than 3 Seconds Skin: Subcutaneous deep irregular ragged margin open wound/ulcer over the right dorsum of hand. Multiple scratches on the dorsal aspect of right forearm Musculoskeletal: Not able to close right hand fist. Swelling of right hand and distal forearm. Mild tenderness present on the hand. Neurological: Cranial nerves II-XII grossly intact, DTR 2+/4. No acute focal neurological deficit. Psych/Mental Status: Flat affect Results Lab / Micro Data 01/04/25 09:13 01/04/25 09:13 Labs: Laboratory Results - last 24 hr 01/04/25 09:13: WBC 16.1 H, RBC 4.26 L, Hgb 14.2, Hct 42.0, MCV 98.6 H, MCH 33.3 H, MCHC 33.8, RDW Std Deviation 49.0 H, RDW Coeff of Marla 13.8, Plt Count 240, MPV 10.0, Immature Gran % (Auto) 0.400, Neut % (Auto) 78.3 H, Lymph % (Auto) 10.1 L, [place] % (Auto) 10.1 H, Eos % (Auto) 0.9, Baso % (Auto) 0.2, Absolute Neuts (auto) 12.6 H, Absolute Lymphs (auto) 1.62, Nucleated RBC % 0, Sodium 139, Potassium 4.4, Chloride 100, Carbon Dioxide 27.2, Anion Gap 12, BUN 15, C reatinine 1.50 H, Estim Creat Clear Calc 48.32 L, Est GFR (MDRD) Non-Af 50 L, BUN/Creatinine Ratio 10.3, Glucose 128 H, Calcium 9.1 Imaging Radiology Impression Hand X-Ray 01/04/25 09:29 IMPRESSION: 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 There is soft tissue swelling in the metacarpal region on the lateral view with no visible radiopaque foreign body. Reading Location: [facility] Assessment & Plan Assessment/Plan (1) Cat bite of hand: (2) Cellulitis of hand: PLAN: Plan This 61-year-old gentleman being admitted after cat bite on the right hand/forearm yesterday night and came to the ER with swelling and wound 1. Cellulitis on the ulcer of right hand and distal right forearm secondary to cat bite: Patient is being admitted on [facility] floor. As per ED physician, Dr. Medel has taken culture from the wound and he is consulted. Deep wound culture and MRSA PCR ordered. Soak right hand and/forearm with soap and water 3 times daily. IV antibiotic Unasyn ordered. Patient had 1 dose of Zosyn in the ED. 2. 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 He also had 3 times paracentesis last one 3 years ago. Furosemide and spironolactone ordered from tomorrow a.m. Ordered for tomorrow a.m. after infection is controlled. 3. Hypertension: His BP is between 145-150. Patient not on antihypertensive medication at home. Hydralazine IV ordered. Continue metoprolol succinate 25 mg twice daily. 4. Chronically smoker and chronic alcohol use: Patient still smokes cigarettes 1 pack/day. He also drinks 2-3 beers in 1 week as per his . He said he was jaundiced about 3 years ago probably doctor thought was from tramadol but he was not a big/heavy drinker at that time too. 5: CKD stage IIIa, exact etiology unclear possible hypertensive/HRS: His creatinine was 1.41 in February 2023 current 1.5. Not on hepatotoxic medications at home. Monitor kidney function. UA and urine lites, protein/creatinine ratio or ordered. Denies acute urinary tract symptoms including burning pain or increased urine frequency or urgency. 6. DVT prophylaxis: Lovenox 40 mL subcu daily ordered Living will/advanced directive/end of life care: Patient does not have living will or advanced directive. He does not have designated power of gastroenterologist for health. After discussion of benefits/risks procedures involved with full code, DNR CC arrest and DNR CC, the patient opted for full code. Patient does want artificial life support including intubation, tube feed, ventilator and/chest compression, central venous catheter, vasopressor and DC shock if needed Total time spent in [id number] encounter in discussion of advanced directive 17 minutes. Laboratory Results 01/04/25 09:13: WBC 16.1 H, RBC 4.26 L, Hgb 14.2, Hct 42.0, MCV 98.6 H, MCH 33.3 H, MCHC 33.8, RDW Std Deviation 49.0 H, RDW Coeff of Marla 13.8, Plt Count 240, MPV 10.0, Immature Gran % (Auto) 0.400, Neut % (Auto) 78.3 H, Lymph % (Auto) 10.1 L, [place] % (Auto) 10.1 H, Eos % (Auto) 0.9, Baso % (Auto) 0.2, Absolute Neuts (auto) 12.6 H, Absolute Lymphs (auto) 1.62, Nucleated RBC % 0, Platelet Estimate A, Sodium 139, Potassium 4.4, Chloride 100, Carbon Dioxide 27.2, Anion Gap 12, BUN 15, Creatinine 1.50 H, Estim Creat Clear Calc 48.32 L, Est GFR (MDRD) Non-Af 50 L, BUN/Creatinine Ratio 10.3, Glucose 128 H, Calcium 9.1 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 There is soft tissue swelling in the metacarpal region on the lateral view with no visible radiopaque foreign body. Reading Location: [facility] Charges/Coding Visit Charges Inpatient E&M: 39715 Init Hosp L3 Procedures Hospitalists Procedures: 02827 Advncd Care Plan 30 Min
--- NOTE | 2025-01-04 10:58 | ED.RN ---
Dr. Medel verbalized he would enter wound culture orders.
[2025-01-04] MEDS: 0.9% Normal Saline (1000mL) 1,000 ML 75 ML IV (13:01)
[2025-01-04] MEDS: Ampicillin/Sulbactam 3 GM in 0.9% Normal Saline (100mL MB+) 100 ML IV ×3 (13:02→23:01)
--- NOTE | 2025-01-04 13:41 | WOUNDNOTE ---
wound photo: right hand
[2025-01-04 16:54] LABS: Mucous, Urine 0 SEEN /hpf (<or=2+); Squamous Epithelial Cells - UA 0 SEEN /hpf (0-5)
[2025-01-04 17:21] LABS: Creatinine, Urine (random) 139.00 mg/dL (39.00-259.00); Microalbumin,Random Urine 50.0 mg/L (NO RANGE EST.); Protein, Urine (Random) 41.7 mg/dL (0.0-12.0); Protein:Creat Ratio 300 mg/g CRE (0-200)
[2025-01-04 17:58] LABS: Color, Urine Yellow (Yellow); Glucose, Dipstick Normal (Normal); Ketone-Dipstick Negative (Negative); Leukocyte Esterase-Dipstick Negative /ul (Negative); Nitrite-Dipstick Negative (Negative); Occult Blood-Urine 150 /ul (Negative); Protein-Dipstick 30 mg/dl (Negative); Specific Gravity, Urine 1.010 (1.002-1.030); Urine Bilirubin Dipstick Negative (Negative)
[2025-01-04 19:44] LABS: Staph aureus DNA By PCR NEGATIVE (Negative)
[2025-01-04 20:18] LABS: Red Blood Cells-Urine 25-50 SEEN /hpf (0-5)
[2025-01-04] MEDS: Metoprolol(XL)Succ 25 MG Tablet PO (22:11)
[2025-01-05] VITALS (7 sets, daily range): BP systolic 136–160; BP diastolic 80–99; PULSE 78–98; RESP 16–18; TEMP 36.7–36.9; O2SAT 93–96
[2025-01-05] MEDS: Ampicillin/Sulbactam 3 GM in 0.9% Normal Saline (100mL MB+) 100 ML IV ×3 (05:09→17:30)
[2025-01-05 06:02] LABS: Hematocrit 38.4 % (40-54); Hemoglobin 13.1 g/dL (13.0-16.5); Immature Granulocytes Count 0.050 X10^3/uL (0.0-0.0); Mean Corp Hgb Conc 34.1 g/dL (32-36); Mean Corpuscular Volume 97.5 fL (80-94); Mean Platelet Vol. 10.2 fl (6.2-12.0); NRBC Flagged by Analyzer 0 % (0-5); Platelet Count 191 K/mm3 (150-450); RBC Distribution Width CV 13.3 % (11.6-14.6); RBC Distribution Width SD 47.4 fl (35.1-43.9); Red Blood Count 3.94 M/mm3 (4.6-6.2); White Blood Count 10.1 K/mm3 (4.4-11.0)
[2025-01-05 06:32] LABS: Anion Gap 12 (5-15); BUN 13 mg/dL (4-19); BUN/Creat Ratio 13.3 RATIO (10-20); Calcium,Total 8.6 mg/dL (7.6-11.0); Carbon Dioxide 23.0 mmol/L (21.0-32.0); Chloride 101 mmol/L (98-108); Estimated Creatinine Clearance 73.86 ml/min (50-250); Glucose 116 mg/dL (70-99); Potassium 4.0 mmol/L (3.3-5.1)
--- NOTE | 2025-01-05 07:46 | PCM.PN.SRG ---
Subjective Subjective Patient had arm in dependent position last night. significant pain in the dorsum of the hand the white count is down from 16,000-10,000 Objective Data Objective Data Vital Signs: Vital Signs Temp Pulse Resp BP Pulse Ox O2 Del Method 98.4 F 98 18 149/93 H 95 Room Air 01/05/25 04:00 01/05/25 04:00 01/05/25 04:00 01/05/25 04:00 01/05/25 04:00 01/05/25 06:57 Oxygen Delivery Method Room Air Weight: 184 lb 6.4 oz Body Mass Index (BMI) 28.8 Intake & Output: Intake and Output for Last 24 Hours 01/03/25 01/04/25 01/05/25 23:59 23:59 23:59 Intake Total 1403.75 / 1403.75 546.25 / 546.25 Balance 1403.75 / 1403.75 546.25 / 546.25 Lab / Micro Data 01/05/25 05:10 01/05/25 05:10 Labs: Laboratory Results - last 24 hr 01/04/25 09:13: WBC 16.1 H, RBC 4.26 L, Hgb 14.2, Hct 42.0, MCV 98.6 H, MCH 33.3 H, MCHC 33.8, RDW Std Deviation 49.0 H, RDW Coeff of Marla 13.8, Plt Count 240, MPV 10.0, Immature Gran % (Auto) 0.400, Neut % (Auto) 78.3 H, Lymph % (Auto) 10.1 L, [place] % (Auto) 10.1 H, Eos % (Auto) 0.9, Baso % (Auto) 0.2, Absolute Neuts (auto) 12.6 H, Absolute Lymphs (auto) 1.62, Nucleated RBC % 0, Platelet Estimate A, Sodium 139, Potassium 4.4, Chloride 100, Carbon Dioxide 27.2, Anion Gap 12, BUN 15, Creatinine 1.50 H, Estim Creat Clear Calc 48.32 L, Est GFR (MDRD) Non-Af 50 L, BUN/Creatinine Ratio 10.3, Glucose 128 H, Calcium 9.1 01/04/25 16:30: Urine Color Yellow, Urine Clarity Clear, Urine pH 6.5, Ur Specific [place] 1.010, Urine Protein 30 H, Urine Glucose (UA) Normal, Urine Ketones Negative, Urine Occult Blood 150 H, Urine Nitrite Negative, Urine Bilirubin Negative, Urine Urobilinogen Normal, Ur Leukocyte Esterase Negative, Urine RBC 25-50 SEEN, Urine WBC 0-5 SEEN, Ur Squamous Epith Cells 0 SEEN, Urine Bacteria 0 SEEN, Urine Mucus 0 SEEN, Ur Random Microalbumin 50.0, U Random Total Protein 41.7 H, Ur Random Sodium 69, Urine Creatinine 139.00, Protein/Creatinin Ratio 300 H, Urine Potassium 58.0, Urine Chloride 42, S.aureus Protein A PCR NEGATIVE, MRSA (PCR) Negative 01/05/25 05:10: WBC 10.1, RBC 3.94 L, Hgb 13.1, Hct 38.4 L, MCV 97.5 H, MCH 33.2 H, MCHC 34.1, RDW Std Deviation 47.4 H, RDW Coeff of Marla 13.3, Plt Count 191, MPV 10.2, Immature Gran % (Auto) 0.500, Neut % (Auto) 69.8, Lymph % (Auto) 15.5 L, [place] % (Auto) 10.4 H, Eos % (Auto) 3.3, Baso % (Auto) 0.5, Absolute Neuts (auto) 7.0, Absolute Lymphs (auto) 1.56, Nucleated RBC % 0, Sodium 135, Potassium 4.0, Chloride 101, Carbon Dioxide 23.0, Anion Gap 12, BUN 13, Creatinine 0.99, Estim Creat Clear Calc 73.86, Est GFR (MDRD) Non-Af 83, BUN/Creatinine Ratio 13.3, Glucose 116 H, Calcium 8.6 Radiography Diagnostic Testing: Radiology Impression Hand X-Ray 01/04/25 09:29 IMPRESSION: 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 There is soft tissue swelling in the metacarpal region on the lateral view with no visible radiopaque foreign body. Reading Location: [facility] Physical Exam Narrative Right Upper Extremity Inspection/palpation: Abrasions and lacerations from the cat bite with open wounds. Significant swelling. Slight purulent drainage from the lacerations that was expressed on rounds today but no large fluid collections. no lymphadenopathy. No pain with axial loading of the right wrist and no pain with axial loading of the right thumb. No signs of a septic joint at this time Motor: Able to bend and extend all MP, PIP, and DIP joints. Sensory: Intact to light touch on the radial and ulnar borders. Vascular: Finger tips are warm and well perfused with <2 second capillary refill. Assessment & Plan Assessment/Plan (1) Cellulitis of hand: (2) Cat bite of hand: PLAN: Plan Patient with right dorsal hand cat bite without signs of any joint infection at this time. We need to monitor for development of septic joint. Also going to monitor for any fluid collections. I am recommending admission for IV antibiotics as well as rest and elevation of the right upper extremity. Plan for 3 times per day Dial soap soaks. Follow-up cultures. Keep n.p.o. for now Plastics will check on the patient later today Charges/Coding Visit Charges Inpatient E&M: 45934 Subs Hosp L2
[2025-01-05] MEDS: Metoprolol(XL)Succ 25 MG Tablet PO ×2 (08:20→22:40)
--- NOTE | 2025-01-05 10:59 | PN.HOSP_ITS ---
Reason for Visit Reason for Visit: Diagnoses Cellulitis of unspecified part of limb (01/04/25) Open bite of unspecified hand, initial encounter (01/04/25) Bitten by cat, initial encounter (01/04/25) Objective Data Objective Data Vital Signs: Vital Signs Temp Pulse Resp BP Pulse Ox O2 Del Method 98.0 F 95 16 137/96 H 93 Room Air 01/05/25 08:10 01/05/25 08:20 01/05/25 08:10 01/05/25 08:20 01/05/25 08:10 01/05/25 08:10 Oxygen Delivery Method Room Air Weight: 184 lb 6.4 oz Body Mass Index (BMI) 28.8 Intake & Output: Intake and Output for Last 24 Hours 01/03/25 01/04/25 01/05/25 23:59 23:59 23:59 Intake Total 1403.75 / 1403.75 546.25 / 546.25 Balance 1403.75 / 1403.75 546.25 / 546.25 Lab / Micro Data 01/05/25 05:10 01/05/25 05:10 Labs: Laboratory Results - last 24 hr 01/04/25 16:30: Urine Color Yellow, Urine Clarity Clear, Urine pH 6.5, Ur Specific [place] 1.010, Urine Protein 30 H, Urine Glucose (UA) Normal, Urine Ketones Negative, Urine Occult Blood 150 H, Urine Nitrite Negative, Urine Bilirubin Negative, Urine Urobilinogen Normal, Ur Leukocyte Esterase Negative, Urine RBC 25-50 SEEN, Urine WBC 0-5 SEEN, Ur Squamous Epith Cells 0 SEEN, Urine Bacteria 0 SEEN, Urine Mucus 0 SEEN, Ur Random Microalbumin 50.0, U Random Total Protein 41.7 H, Ur Random Sodium 69, Urine Creatinine 139.00, Protein/Creatinin Ratio 300 H, Urine Potassium 58.0, Urine Chloride 42, S.aureus Protein A PCR NEGATIVE, MRSA (PCR) Negative 01/05/25 05:10: WBC 10.1, RBC 3.94 L, Hgb 13.1, Hct 38.4 L, MCV 97.5 H, MCH 33.2 H, MCHC 34.1, RDW Std Deviation 47.4 H, RDW Coeff of Marla 13.3, Plt Count 191, MPV 10.2, Immature Gran % (Auto) 0.500, Neut % (Auto) 69.8, Lymph % (Auto) 15.[address] L, [facility] % (Auto) 10.4 H, Eos % (Auto) 3.3, Baso % (Auto) 0.5, Absolute Neuts (auto) 7.0, Absolute Lymphs (auto) 1.56, Nucleated RBC % 0, Sodium 135, Potassium 4.0, Chloride 101, Carbon Dioxide 23.0, Anion Gap 12, BUN 13, Creatinine 0.99, Estim Creat Clear Calc 73.86, Est GFR (MDRD) Non-Af 83, BUN/Creatinine Ratio 13.3, Glucose 116 H, Calcium 8.6 Micro: Microbiology 01/04/25 16:30 Bite - Hand Wound Culture - Preliminary No growth-Final to follow Physical Exam Narrative Seen and examined. No fever. Dorsum of right hand and forearm still swollen with dependent edema, pain and tenderness. General: Alert, Oriented x3, Cooperative. BMI 30.4 kg/m? HEENT: Atraumatic, PERRLA, EOMI, Normocephalic. Mild puffiness of the face. Oral: No Gingival or Mucosal Lesions/ Ulcerations Neck: Supple, No JVD, Negative Carotid Bruits Chest wall/Lungs: Air entry diminished in bilateral lung bases. No crepitation/rhonchi Cardiovascular: Regular rate and rhythm, Normal S1,S2, No M/G/R Abdomen: Bowel Sounds Present, Soft, Non Tender, mild swelling, shifting dullness present. Mild to moderate ascites. : No dysuria. No renal angle tenderness. No suprapubic tenderness. Extremities: Bilateral pitting 2+ leg edema, Capillary Refill Less than 3 Seconds Skin: Subcutaneous deep irregular ragged margin open wound/ulcer over the right dorsum of hand. Multiple scratches on the dorsal aspect of right forearm Musculoskeletal: Right hand has Eric wrap bandage. Not able to close right hand fist. Swelling of right hand and distal forearm. Right hand/flank tenderness. Neurological: Cranial nerves II-XII grossly intact, DTR 2+/4. No acute focal neurological deficit. Psych/Mental Status: Flat affect Assessment & Plan Assessment/Plan (1) Cat bite of hand: (2) Cellulitis of hand: PLAN: Plan This 61-year-old gentleman being admitted after cat bite on the right hand/forearm yesterday night and came to the ER with swelling and wound 1. Cellulitis on the ulcer of right hand and distal right forearm secondary to cat bite with suspicion of collection/abscess, present on admission: [facility] As per ED physician, Dr. Medel has taken culture from the wound and he is consulted. Deep wound culture and MRSA PCR ordered. Soak right hand and/forearm with soap and water 3 times daily. IV antibiotic Unasyn ordered. Patient had 1 dose of Zosyn in the ED. 01/05: Leukocytosis resolved. Patient is n.p.o. plan for OR for subcutaneous exploration and drainage of any collection. Plastic surgery consult and follow- up note reviewed and appreciated. Continue IV antibiotics, soap soak 3 times daily and right hand/forearm elevation. 2. Probable alcoholic cirrhosis probably alcoholic and nonalcoholic etiology decompensated with ascites and leg swelling: Patient follows GI in [place] and few months ago had EGD, official report pending but patient's said he was told he has Villagran's esophagus. He also had 3 times paracentesis last one 3 years ago. Furosemide and spironolactone ordered from tomorrow a.m. Ordered for tomorrow a.m. after infection is controlled. 01/05: Patient is stated his drinking pattern is irregular sometimes he drinks 2-3 beer 1 day and sometimes 2-3 within [address] Fisher in [place] [facility]. Continue diuretics as mentioned above. Hyperglycemia, A1c ordered 3. Hypertension: His BP is between 145-150. Patient not on antihypertensive medication at home. Hydralazine IV ordered. Continue metoprolol succinate 25 mg twice daily. 4. Chronically smoker and chronic alcohol use: Patient still smokes cigarettes 1 pack/day. He also drinks 2-3 beers in 1 week as per his . He said he was jaundiced about 3 years ago probably doctor thought was from tramadol but he was not a big/heavy drinker at that time too. 5: CKD stage IIIa, exact etiology unclear possible hypertensive/HRS: His creatinine was 1.41 in February 2023 current 1.5. Not on hepatotoxic medications at home. Monitor kidney function. UA and urine lites, protein/creatinine ratio or ordered. Denies acute urinary tract symptoms including burning pain or increased urine frequency or urgency. 6. DVT prophylaxis: Lovenox 40 mL subcu daily ordered Living will/advanced directive/end of life care: Patient does not have living will or advanced directive. He does not have designated power of senior sales manager for health. After discussion of benefits/risks procedures involved with full code, DNR CC arrest and DNR CC, the patient opted for full code. Patient does want artificial life support including intubation, tube feed, ventilator and/chest compression, central venous catheter, vasopressor and DC shock if needed Total time spent in [id number] encounter in discussion of advanced directive 17 minutes. Microbiology Past 72 Hours 01/04/25 16:30 Bite - Hand Wound Culture - Preliminary No growth-Final to follow Laboratory Results 01/04/25 16:30: Urine Color Yellow, Urine Clarity Clear, Urine pH 6.5, Ur Specific [place] 1.010, Urine Protein 30 H, Urine Glucose (UA) Normal, Urine Ketones Negative, Urine Occult Blood 150 H, Urine Nitrite Negative, Urine Bilirubin Negative, Urine Urobilinogen Normal, Ur Leukocyte Esterase Negative, Urine RBC 25-50 SEEN, Urine WBC 0-5 SEEN, Ur Squamous Epith Cells 0 SEEN, Urine Bacteria 0 SEEN, Urine Mucus 0 SEEN, Ur Random Microalbumin 50.0, U Random Total Protein 41.7 H, Ur Random Sodium 69, Urine Creatinine 139.00, Protein/Creatinin Ratio 300 H, Urine Potassium 58.0, Urine Chloride 42, S.aureus Protein A PCR NEGATIVE, MRSA (PCR) Negative 01/05/25 05:10: WBC 10.1, RBC 3.94 L, Hgb 13.1, Hct 38.4 L, MCV 97.5 H, MCH 33.2 H, MCHC 34.1, RDW Std Deviation 47.4 H, RDW Coeff of Marla 13.3, Plt Count 191, MPV 10.2, Immature Gran % (Auto) 0.500, Neut % (Auto) 69.8, Lymph % (Auto) 15.[address] L, 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 There is soft tissue swelling in the metacarpal region on the lateral view with no visible radiopaque foreign body. Reading Location: [facility] Charges/Coding Visit Charges Inpatient E&M: 63973 Subs Hosp L2
--- NOTE | 2025-01-05 13:19 | CASEMGMT ---
SIRI SAM Assessment: Face to Face with pt for initial transition planning/care coordination assessment. SIRI SAM introduced self and role at [facility], pt voices understanding and consents to assessment. Pt is A&O x4 and answers all questions appropriately at this time. Pt lying in bed in no distress. Pt kept his eyes closed. Pt agreeable to answering assessment questions. Care providers, pharmacy, and demographics verified/updated. Admitting Dx: cat bite Strata Score: 2 PCP:Serafin Specialists:ALYSSA Mack Pharmacy:[facility] Insurance: [facility] Prescription Benefit: yes LNOK: Zandra Muller, Living Arrangements: Pt lives with in a single story home with 5 steps to enter with a rail. Pt reports pt is I in ADL/IADLs and denies concerns at home. Transportation: Pt drives self and denies concerns with transportation. DME:[facility] HHC/SNF:Denies hx of Pt states no concerns with going home at time of dc. Noted Hgb A1C, pt reports he is not diabetic. Should pt need wound care, states she is willing to learn. SIRI SAM to follow, possible OR. Pt states no further concerns/needs. Advised pt to ask CM if any further questions/concerns/needs arise, voices understanding. Pt Goal: Home Plan: Home follow for wound care Cristine HORNER CM
[2025-01-05] MEDS: 0.9% Saline Lock 10 ML Syringe IV (22:40)
[2025-01-06] MEDS: Ampicillin/Sulbactam 3 GM in 0.9% Normal Saline (100mL MB+) 100 ML IV ×5 (00:30→23:50)
[2025-01-06 03:45] VITALS: BP 132/82; PULSE 86; RESP 16; TEMP 36.9; O2SAT 96
--- NOTE | 2025-01-06 06:00 | EKG12_ITS ---
Test Reason : am ekg Blood Pressure : */* mmHG Vent. Rate : 88 BPM Atrial Rate : 88 BPM P-R Int : 182 ms QRS Dur : 70 ms QT Int : 352 ms P-R-T Axes : 48 9 47 degrees QTcB Int : 425 ms Normal sinus rhythm Septal infarct , age undetermined Abnormal ECG When compared with ECG of 07-Feb-2023 17:10, Premature atrial complexes are no longer Present Nonspecific T wave abnormality no longer evident in Anterior leads QT has shortened Confirmed by DANTE FENG, NIKA ([id number]), graphic editor NICOLLE FERNANDEZ ([id number]) on 01/10/2025 9:47:20 AM Referred By: Douglas Confirmed By: NIKA HOWELL MD
[2025-01-06] MEDS: 0.9% Normal Saline (250mL Bag) 250 ML 15 ML IV (06:30)
--- NOTE | 2025-01-06 07:36 | PCM.PN.SRG ---
Subjective Subjective Pain controlled this morning Significant improvement in range of motion of the hand per patient report. Reports good elevation Objective Data Objective Data Vital Signs: Vital Signs Temp Pulse Resp BP Pulse Ox O2 Del Method 98.4 F 86 16 132/82 H 96 Room Air 01/06/25 03:45 01/06/25 03:45 01/06/25 03:45 01/06/25 03:45 01/06/25 03:45 01/06/25 03:45 Oxygen Delivery Method Room Air Weight: 184 lb 6.385 oz Body Mass Index (BMI) 28.8 Intake & Output: Intake and Output for Last 24 Hours 01/04/25 01/05/25 01/06/25 23:59 23:59 23:59 Intake Total 1403.75 / 1403.75 1146.25 / 1146.25 200 / 200 Balance 1403.75 / 1403.75 1146.25 / 1146.25 200 / 200 Lab / Micro Data 01/05/25 05:10 01/05/25 05:10 Labs: Laboratory Results - last 24 hr 01/05/25 05:10: Hemoglobin A1c 6.6 H Micro: Microbiology 01/04/25 16:30 Bite - Hand Gram Stain - Final 01/04/25 16:30 Bite - Hand Wound Culture - Preliminary Physical Exam Narrative Right Upper Extremity Inspection/palpation: Abrasions and lacerations from the cat bite with open wounds. Improved swelling. No purulence expressed today on rounds. No pain with axial loading of the thumb or the wrist joints. Motor: Able to bend and extend all MP, PIP, and DIP joints. Able to make a near full fist now Sensory: Intact to light touch on the radial and ulnar borders. Vascular: Finger tips are warm and well perfused with <2 second capillary refill. Assessment & Plan Assessment/Plan (1) Cellulitis of hand: (2) Cat bite of hand: PLAN: Plan Patient with right dorsal hand cat bite without signs of any joint infection at this time. Continue elevation Plan for 3 times per day Dial soap soaks. Follow-up cultures. Okay for diet Plastics will follow Charges/Coding Visit Charges Inpatient E&M: 94767 Subs Hosp L1
[2025-01-06 08:33] VITALS: BP 143/93; PULSE 89; PULSE 90; RESP 16; TEMP 36.1; O2SAT 97
[2025-01-06 08:44] VITALS: PULSE 89
[2025-01-06] MEDS: Metoprolol(XL)Succ 25 MG Tablet PO ×2 (08:44→22:32)
--- NOTE | 2025-01-06 11:18 | PN.HOSP_ITS ---
Reason for Visit Reason for Visit: Diagnoses Cellulitis of unspecified part of limb (01/04/25) Open bite of unspecified hand, initial encounter (01/04/25) Bitten by cat, initial encounter (01/04/25) Objective Data Objective Data Vital Signs: Vital Signs Temp Pulse Resp BP Pulse Ox O2 Del Method 97.0 F L 89 16 143/93 H 97 Room Air 01/06/25 08:33 01/06/25 08:44 01/06/25 08:33 01/06/25 08:33 01/06/25 08:33 01/06/25 08:46 Oxygen Delivery Method Room Air Weight: 184 lb 6.385 oz Body Mass Index (BMI) 28.8 Intake & Output: Intake and Output for Last 24 Hours 01/04/25 01/05/25 01/06/25 23:59 23:59 23:59 Intake Total 1403.75 / 1403.75 1146.25 / 1146.25 200 / 200 Balance 1403.75 / 1403.75 1146.25 / 1146.25 200 / 200 Lab / Micro Data 01/05/25 05:10 01/05/25 05:10 Labs: Laboratory Results - last 24 hr 01/05/25 05:10: Hemoglobin A1c 6.6 H Micro: Microbiology 01/04/25 14:03 Blood Culture (Wb) - Left Hand Blood Culture - Preliminary No growth in 48 hours. 01/04/25 16:30 Bite - Hand Gram Stain - Final 01/04/25 16:30 Bite - Hand Wound Culture - Preliminary Physical Exam Narrative Seen and examined. No fever. Dorsum of right hand and forearm swollen with dependent edema, pain and tenderness has improved more than 50%. Patient able to flex his fingers General: Alert, Oriented x3, Cooperative. BMI 30.4 kg/m? HEENT: Atraumatic, PERRLA, EOMI, Normocephalic. Mild puffiness of the face. Oral: No Gingival or Mucosal Lesions/ Ulcerations Neck: Supple, No JVD, Negative Carotid Bruits Chest wall/Lungs: Air entry diminished in bilateral lung bases. No crepitation/rhonchi Cardiovascular: Regular rate and rhythm, Normal S1,S2, No M/G/R Abdomen: Bowel Sounds Present, Soft, Non Tender, ascites improving. Mild ascites. : No dysuria. No renal angle tenderness. No suprapubic tenderness. Extremities: Leg edema improved on Lasix capillary Refill Less than 3 Seconds Skin: Subcutaneous deep irregular ragged margin open wound/ulcer over the right dorsum of hand. Multiple scratches on the dorsal aspect of right forearm Musculoskeletal: Right hand has Eric wrap bandage. Not able to close right hand fist. Swelling of right hand and distal forearm. Right hand/flank tenderness. Neurological: Cranial nerves II-XII grossly intact, DTR 2+/4. No acute focal neurological deficit. Psych/Mental Status: Flat affect Assessment & Plan Assessment/Plan (1) Cat bite of hand: (2) Cellulitis of hand: PLAN: Plan This 61-year-old gentleman being admitted after cat bite on the right hand/forearm yesterday night and came to the ER with swelling and wound 1. Cellulitis on the ulcer of right hand and distal right forearm secondary to cat bite with suspicion of collection/abscess, present on admission: Patient is being admitted on [facility] floor. As per ED physician, Dr. Medel has taken culture from the wound and he is consulted. Deep wound culture and MRSA PCR ordered. Soak right hand and/forearm with soap and water 3 times daily. IV antibiotic Unasyn ordered. Patient had 1 dose of Zosyn in the ED. 01/05: Leukocytosis resolved. Patient is n.p.o. plan for OR for subcutaneous exploration and drainage of any collection. Plastic surgery consult and follow- up note reviewed and appreciated. Continue IV antibiotics, soap soak 3 times daily and right hand/forearm elevation. 01/06: Significant improvement in range of motion.. Continue elevation and antibiotic. Does not have signs of joint infection at this time. Blood culture negative for 48 hours. Gram stain from 01/24 shows gram-negative organism, preliminary. Full culture pending. 2. 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 He also had 3 times paracentesis last one 3 years ago. Furosemide and spironolactone ordered from tomorrow a.m. Ordered for tomorrow a.m. after infection is controlled. 01/05: Patient is stated his drinking pattern is irregular sometimes he drinks 2-3 beer 1 day and sometimes 2-3 within [address] Fisher in [place] [facility]. Continue diuretics as mentioned above. Hyperglycemia, A1c ordered 01/06: Patient with improvement in leg swelling and ascites. Continue diuretics. 3. Hypertension: His BP is between 145-150. Patient not on antihypertensive medication at home. Hydralazine IV ordered. Continue metoprolol succinate 25 mg twice daily. 4. Chronically smoker and chronic alcohol use: Patient still smokes cigarettes 1 pack/day. He also drinks 2-3 beers in 1 week as per his . He said he was jaundiced about 3 years ago probably doctor thought was from tramadol but he was not a big/heavy drinker at that time too. 5: CKD stage IIIa, exact etiology unclear possible hypertensive/HRS: His creatinine was 1.41 in February 2023 current 1.5. Not on hepatotoxic medications at home. Monitor kidney function. UA and urine lites, protein/creatinine ratio or ordered. Denies acute urinary tract symptoms including burning pain or increased urine frequency or urgency. 6. DVT prophylaxis: Lovenox 40 mL subcu daily ordered Living will/advanced directive/end of life care: Patient does not have living will or advanced directive. He does not have designated power of ip technology transactions attorney for health. After discussion of benefits/risks procedures involved with full code, DNR CC arrest and DNR CC, the patient opted for full code. Patient does want artificial life support including intubation, tube feed, ventilator and/chest compression, central venous catheter, vasopressor and DC shock if needed Total time spent in [id number] encounter in discussion of advanced directive 17 minutes. Microbiology Past 72 Hours 01/04/25 16:30 Bite - Hand Gram Stain - Final 01/04/25 16:30 Bite - Hand Wound Culture - Preliminary Gram negative organism 01/04/25 14:03 Blood Culture (Wb) - Left Hand Blood Culture - Preliminary No growth in 48 hours. 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 There is soft tissue swelling in the metacarpal region on the lateral view with no visible radiopaque foreign body. Reading Location: [facility] Charges/Coding Visit Charges Inpatient E&M: 24966 Subs Hosp L2
[2025-01-06 13:35] VITALS: BP 135/92; PULSE 92; RESP 18; TEMP 37.1; O2SAT 93
[2025-01-06 22:31] VITALS: BP 158/108; PULSE 97; RESP 16; TEMP 36.5; O2SAT 95
[2025-01-06 22:32] VITALS: PULSE 97
[2025-01-07] VITALS (8 sets, daily range): BP systolic 140–156; BP diastolic 82–100; PULSE 62–85; RESP 15–18; TEMP 36.5–37.1; O2SAT 93–98
[2025-01-07] MEDS: Ampicillin/Sulbactam 3 GM in 0.9% Normal Saline (100mL MB+) 100 ML IV ×4 (05:55→22:49)
[2025-01-07 06:05] LABS: Hematocrit 39.2 % (40-54); Hemoglobin 13.3 g/dL (13.0-16.5); Immature Granulocytes Count 0.080 X10^3/uL (0.0-0.0); Mean Corp Hgb Conc 33.9 g/dL (32-36); Mean Corpuscular Volume 97.5 fL (80-94); Mean Platelet Vol. 10.5 fl (6.2-12.0); NRBC Flagged by Analyzer 0 % (0-5); Platelet Count 241 K/mm3 (150-450); RBC Distribution Width CV 13.3 % (11.6-14.6); RBC Distribution Width SD 48.0 fl (35.1-43.9); Red Blood Count 4.02 M/mm3 (4.6-6.2); White Blood Count 8.3 K/mm3 (4.4-11.0)
[2025-01-07 06:21] LABS: Anion Gap 12 (5-15); BUN 11 mg/dL (4-19); BUN/Creat Ratio 11.8 RATIO (10-20); Calcium,Total 8.7 mg/dL (7.6-11.0); Carbon Dioxide 23.8 mmol/L (21.0-32.0); Chloride 102 mmol/L (98-108); Estimated Creatinine Clearance 76.16 ml/min (50-250); Glucose 109 mg/dL (70-99); Potassium 3.7 mmol/L (3.3-5.1)
--- NOTE | 2025-01-07 08:19 | PCM.PN.SRG ---
Subjective Subjective Continues to improve with regards to swelling and pain of the right hand. Working with PT/OT on rounds this morning. Objective Data Objective Data Vital Signs: Vital Signs Temp Pulse Resp BP Pulse Ox O2 Del Method 97.7 F L 69 16 140/100 H 94 Room Air 01/07/25 03:28 01/07/25 03:28 01/07/25 03:28 01/07/25 03:28 01/07/25 03:28 01/07/25 03:28 Oxygen Delivery Method Room Air Weight: 184 lb 6.385 oz Body Mass Index (BMI) 28.8 Intake & Output: Intake and Output for Last 24 Hours 01/05/25 01/06/25 01/07/25 23:59 23:59 23:59 Intake Total 1146.25 / 1146.25 650 / 950 700 / 700 Balance 1146.25 / 1146.25 650 / 950 700 / 700 Lab / Micro Data 01/07/25 04:52 01/07/25 04:52 Labs: Laboratory Results - last 24 hr 01/07/25 04:52: WBC 8.3, RBC 4.02 L, Hgb 13.3, Hct 39.2 L, MCV 97.5 H, MCH 33.1 H, MCHC 33.9, RDW Std Deviation 48.0 H, RDW Coeff of Marla 13.3, Plt Count 241, MPV 10.5, Immature Gran % (Auto) 1.000 H, Neut % (Auto) 63.9, Lymph % (Auto) 17.5 L, [place] % (Auto) 13.1 H, Eos % (Auto) 4.0, Baso % (Auto) 0.5, Absolute Neuts (auto) 5.3, Absolute Lymphs (auto) 1.45, Nucleated RBC % 0, Sodium 138, Potassium 3.7, Chloride 102, Carbon Dioxide 23.8, Anion Gap 12, BUN 11, Creatinine 0.96, Estim Creat Clear Calc 76.16, Est GFR (MDRD) Non-Af 86, BUN/Creatinine Ratio 11.8, Glucose 109 H, Calcium 8.7 Micro: Microbiology 01/04/25 16:30 Bite - Hand Gram Stain - Final 01/04/25 16:30 Bite - Hand Wound Culture - Preliminary Gram negative organism 01/04/25 14:03 Blood Culture (Wb) - Left Hand Blood Culture - Preliminary No growth in 48 hours. Physical Exam Narrative Right Upper Extremity Inspection/palpation: Abrasions and lacerations from the cat bite with open wounds. Improved swelling. No purulence expressed today on rounds. No pain with axial loading of the thumb or the wrist joints. Motor: Able to bend and extend all MP, PIP, and DIP joints. Able to make a near full fist now. Able to oppose small and thumb fingers. Sensory: Intact to light touch on the radial and ulnar borders. Vascular: Finger tips are warm and well perfused with <2 second capillary refill. Assessment & Plan Assessment/Plan (1) Cellulitis of hand: (2) Cat bite of hand: PLAN: Plan Patient with right dorsal hand cat bite without signs of any joint infection at this time. Continue elevation Plan for 3 times per day Dial soap soaks. Follow-up cultures (gram negative organisms now growing from the culture I took) Okay for diet Plastics will follow Needs to remain inpatient for IV antibiotics and continued monitoring of progress. Charges/Coding Visit Charges Inpatient E&M: 28114 Subs Hosp L1
[2025-01-07] MEDS: Metoprolol(XL)Succ 25 MG Tablet PO ×2 (10:31→22:39)
[2025-01-07] MEDS: 0.9% Normal Saline (250mL Bag) 250 ML 15 ML IV (22:38)
[2025-01-08] MEDS: Ampicillin/Sulbactam 3 GM in 0.9% Normal Saline (100mL MB+) 100 ML IV (05:02)
[2025-01-08 05:23] VITALS: BP 138/85; PULSE 78; RESP 16; TEMP 36.6; O2SAT 96
--- NOTE | 2025-01-08 07:25 | PCM.PROGNOTE ---
Subjective Subjective Improved hand pain today, nearly gone. Able to make fist with full right hand ROM. Objective Data Objective Data Vital Signs: Vital Signs Temp Pulse Resp BP Pulse Ox O2 Del Method 97.9 F 78 16 138/85 H 96 Room Air 01/08/25 05:23 01/08/25 05:23 01/08/25 05:23 01/08/25 05:23 01/08/25 05:23 01/08/25 05:23 Oxygen Delivery Method Room Air Weight: 184 lb 6.385 oz Body Mass Index (BMI) 28.8 Intake & Output: Intake and Output for Last 24 Hours 01/06/25 01/07/25 01/08/25 23:59 23:59 23:59 Intake Total 650 / 950 2500 / 2500 1000 / 1000 Balance 650 / 950 2500 / 2500 1000 / 1000 Lab / Micro Data 01/07/25 04:52 01/07/25 04:52 Micro: Microbiology 01/04/25 16:30 Bite - Hand Gram Stain - Final 01/04/25 16:30 Bite - Hand Wound Culture - Preliminary Gram negative organism 01/04/25 16:30 Bite - Hand Anaerobic Culture - Preliminary Checking for anaerobes, further studies to follow. 01/04/25 16:30 Urine, Clean Catch Urine Culture - Final Culture exhibits no growth. 01/04/25 14:03 Blood Culture (Wb) - Left Hand Blood Culture - Preliminary No growth in 48 hours. Physical Exam Narrative Right Upper Extremity Inspection/palpation: Abrasions and lacerations from the cat bite with open wounds. Improved swelling. No purulence expressed today on rounds. No pain with axial loading of the thumb or the wrist joints. Motor: Able to bend and extend all MP, PIP, and DIP joints. Able to make a full fist now. Able to oppose small and thumb fingers. Improved exam. Sensory: Intact to light touch on the radial and ulnar borders. Vascular: Finger tips are warm and well perfused with <2 second capillary refill. Assessment & Plan Assessment/Plan (1) Cellulitis of hand: (2) Cat bite of hand: PLAN: Plan Patient with right dorsal hand cat bite without signs of any joint infection at this time. OK for discharge home Agree with transition to oral antibiotics today and DC Continue elevation of the hand at home as able. Daily Dial soap soaks and twice daily neosporin/band aid to the abrasions on the dorsal wrist. F/u with plastics in clinic on Friday, 11 January 2025. I discussed strict return precautions with the patient today on rounds. Charges/Coding Visit Charges Inpatient E&M: 37808 Subs Hosp L1
[2025-01-08 09:44] VITALS: PULSE 65
[2025-01-08] MEDS: Metoprolol(XL)Succ 25 MG Tablet PO (09:44)
[2025-01-08 09:48] VITALS: BP 146/86; PULSE 65; RESP 16; TEMP 36.6; O2SAT 95
--- NOTE | 2025-01-08 09:59 | PCM.DC ---
Discharge Instructions Diet Discharge Diet: 2000 mg Sodium Diet DC O2, CPAP, BIPAP needs Home O2 Discharge instructions: No Dressing / Incision Discharge Activity: Return to Normal Activity Weight Bearing Status: Weight bearing as tolerated Dressing / Incision Call your doctor if you observe: Fever of 101 or Higher, Coldness, Increased Pain, Numbness or Tingling, Change in Color, Inability to urinate, Inability to have a bowel movement, Shortness of breath, Dizziness, Fainting spells, Swelling in the ankles, Chest pain, Prolonged hiccupping, Increased palpitations (irregular heartbeat) and Calf discomfort Follow Up Care When: IN 2 WEEKS Test Results: Test results from this visit will be discussed in further detail at your follow-up appointment, if applicable. Discharge Plan Admission Admit Date/Time: 01/04/25 10:25 Primary Reason for Your Visit: Cat bite with complicated cellulitis and deep tissue infection Attending Provider: Kale Cole Primary Care Provider: Susie Betancourt Consulting Providers: Donnie Medel Instructions Additional Instructions / Restrictions: PLASTIC SURGERY DISCHARGE INSTRUCTIONS Instructions for My Care at Home or Healthcare Facility Do not, however, hesitate to call if you have any questions or concerns. Splint Care/Dressing Care/Wound Care Continue elevation of the hand at home as able. Daily Dial soap soaks and twice daily neosporin/band aid to the abrasions on the dorsal wrist. ? Activities Avoid lifting, pushing, or pulling anything over [address] or operate heavy machinery within 24 hrs of surgery or while taking narcotic pain medication.? Pain Control/Medications Pain medication may cause some lethargy, nausea, and or constipation. You should not drive/operate dangerous machinery while taking these medications. If these or other symptoms become significantly problematic, please your surgeon's office. If prescribed oral antibiotics (Keflex, Clindamycin, or others), please take prescription for full duration as instructed. You should not have any pills remaining once completed (refills are written for your convenience should the course need to be extended, but generally they are not required). Diet (what I can eat): Resume normal diet Follow up You will be seen (most likely) 1 to 2 weeks after surgery depending on the procedure. Follow-up appointment reminders:? (A list of any scheduled appointments is at the end of this document)? At your earliest convenience, please call [phone] to confirm/schedule a follow-up appointment with me in clinic. When to call your surgeon: If any signs of surgical site infection develop: redness, pus, pain, increased swelling or foul odor at the incision site, fever, cold and clammy skin, or confusion. Consistent temperature above 101?F (38.3?C). The affected area gets swollen or much more painful. You have excessive bleeding from surgical site (soaking through). If you experience difficulty breathing and/or shortness of breath, seek immediate medical attention. If experiencing any of the above complications or if you have any questions, call [phone] Follow-up his primary GI doctor Dr. Fisher in [place] for cirrhosis. Discharge Orders/Prescriptions Prescriptions: New furosemide 40 mg Tablet 40 mg PO DAILY 30 Days Qty: 30 0RF sennosides-docusate sodium [Stimulant Laxative Plus] 8.6-50 mg Tablet 2 tab PO BID PRN (Reason: Constipation) Qty: 0 0RF spironolactone 25 mg Tablet 37.5 mg PO DAILY 30 Days Qty: 45 0RF Rx Instructions: Hold for serum potassium more than 5.0 amoxicillin-pot clavulanate 875-125 mg tablet 1 tab PO BID 6 Days Qty: 12 0RF Continued diazepam 5 mg tablet 5 mg PO DAILY PRN PRN (Reason: ANXIETY) ondansetron 4 mg tablet,disintegrating 4 mg PO Q8H PRN PRN (Reason: Nausea) Qty: 10 0RF omeprazole 20 mg capsule,delayed release(DR/EC) 20 mg PO DAILY metoprolol succinate 25 mg tablet extended release 24 hr 25 mg PO BID oxycodone 10 mg tablet 10 mg PO 4X/DAY PRN PRN (Reason: pain) albuterol sulfate [Ventolin HFA] 90 mcg/actuation HFA aerosol inhaler 2 puff inhalation Q8H PRN (Reason: bronchospasm) cholecalciferol (vitamin D3) 50 mcg (2,000 unit) capsule 50 mcg PO DAILY ferrous gluconate 240 mg (27 mg iron) tablet 240 mg PO DAILY magnesium oxide 400 mg magnesium tablet 400 mg PO DAILY Discontinued furosemide 20 mg tablet 20 mg PO DAILY Referrals / Follow Up: Susie Betancourt MD [Primary Care Provider] - Donnie Medel MD [Med Staff - Active Staff] - (Follow-up on January 11.) Disposition Disposition (needs filled in before D/C Order can be placed): Home, Self Care
--- NOTE | 2025-01-08 10:07 | PCM.DC.SUM ---
Providers Date of Admission: 01/04/25 Date of Discharge: 01/08/25 Primary Care Physician: Dr. 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 Cellulitis on the ulcer of right hand and distal right forearm secondary to cat bite with suspicion of collection/abscess, present on admission: [facility] As per ED physician, Dr. Medel has taken culture from the wound and he is consulted. Deep wound culture and MRSA PCR ordered. Soak right hand and/forearm with soap and water 3 times daily. IV antibiotic Unasyn ordered. Patient had 1 dose of Zosyn in the ED. 01/05: Leukocytosis resolved. Patient is n.p.o. plan for OR for subcutaneous exploration and drainage of any collection. Plastic surgery consult and follow-up note reviewed and appreciated. Continue IV antibiotics, soap soak 3 times daily and right hand/forearm elevation. 01/06: Significant improvement in range of motion.. Continue elevation and antibiotic. Does not have signs of joint infection at this time. Blood culture negative for 48 hours. Gram stain from 01/24 shows gram-negative organism, preliminary. Full culture pending. 01/07: Hand edema is almost gone, resolved. Patient can make a fist. Superficial scratches already scabbed and ulcer also healing. Patient discharged on Augmentin for 6 more days to complete a total of 10 days of antibiotics. Follow-up in plastic surgery clinic with Dr. Medel on January 11, 2025, Friday. 2. 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 He also had 3 times paracentesis last one 3 years ago. Furosemide and spironolactone ordered from tomorrow a.m. Ordered for tomorrow a.m. after infection is controlled. 01/05: Patient is stated his drinking pattern is irregular sometimes he drinks 2-3 beer 1 day and sometimes 2-3 within [address] Fisher in [facility]. Continue diuretics as mentioned above. Hyperglycemia, A1c ordered 01/06: Patient with improvement in leg swelling and ascites. Continue diuretics. 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 Patient discharged on furosemide 40 mg daily and spironolactone 37.5 mg daily. 4. Chronically smoker and chronic alcohol use: Patient still smokes cigarettes 1 pack/day. He also drinks 2-3 beers in 1 week as per his . He said he was jaundiced about 3 years ago probably doctor thought was from tramadol but he was not a big/heavy drinker at that time too. 5: CKD stage IIIa, exact etiology unclear possible hypertensive/HRS: His creatinine was 1.41 in February 2023 current 1.5. Not on hepatotoxic medications at home. Monitor kidney function. UA and urine lites, protein/creatinine ratio or ordered. Denies acute urinary tract symptoms including burning pain or increased urine frequency or urgency. Hypertension: Blood pressure is controlled. 146/86 6. DVT prophylaxis: Lovenox 40 mL subcu daily ordered Living will/advanced directive/end of life care: Patient does not have living will or advanced directive. He does not have designated power of trademark attorney for health. After discussion of benefits/risks procedures involved with full code, DNR CC arrest and DNR CC, the patient opted for full code. Patient does want artificial life support including intubation, tube feed, ventilator and/chest compression, central venous catheter, vasopressor and DC shock if needed Discharge medication reconciliation done. Discharge follow-up instructions completed. Discharge process discussed with the patient and all questions were answered to patient's satisfaction. Follow with PCP in 1 to 2 weeks Total time spent, exact 35 minutes on discharge meds reconciliation, examination, coordination of care with nurses and ancillary staff, review of imaging and blood test and discussion with the patient on follow-up instructions. Microbiology Past 72 Hours 01/04/25 16:30 Bite - Hand Gram Stain - Final 01/04/25 16:30 Bite - Hand Wound Culture - Preliminary Gram negative organism 01/04/25 14:03 Blood Culture (Wb) - Left Hand Blood Culture - Preliminary No growth in 48 hours. 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 There is soft tissue swelling in the metacarpal region on the lateral view with no visible radiopaque foreign body. Reading Location: [facility] Medications at Discharge Home Medications diazepam 5 mg tablet 5 mg PO DAILY PRN PRN ANXIETY 01/01/23 ondansetron 4 mg disintegrating tablet 4 mg PO Q8H PRN PRN Nausea #10 tabs 02/08/23 albuterol sulfate 90 mcg/actuation aerosol inhaler (Ventolin HFA) 2 puff inhalation Q8H PRN bronchospasm 01/04/25 cholecalciferol (vitamin D3) 50 mcg (2,000 unit) capsule 50 mcg PO DAILY supplement 01/04/25 ferrous gluconate 240 mg (27 mg iron) tablet 240 mg PO DAILY supplement 01/04/25 magnesium oxide 400 mg PO DAILY supplement 01/04/25 metoprolol succinate 25 mg tablet,extended release 24 hr 25 mg PO BID 01/04/25 omeprazole 20 mg capsule,delayed release 20 mg PO DAILY 01/04/25 oxycodone 10 mg tablet 10 mg PO 4X/DAY PRN PRN pain 01/04/25 amoxicillin 875 mg-potassium clavulanate 125 mg tablet 1 tab PO BID 6 days #12 tabs 01/08/25 furosemide 40 mg tablet 40 mg PO DAILY 30 days #30 tabs 01/08/25 sennosides 8.6 mg-docusate sodium 50 mg tablet (Stimulant Laxative Plus) 2 tab PO BID PRN Constipation #0 tabs 01/08/25 spironolactone 25 mg tablet 37.5 mg (1.5 x 25 mg) PO DAILY 30 days #45 tabs 01/08/25 Physical Exam Narrative Seen and examined. No fever. Hand swelling has resolved. Patient can make a full fist. No acute tenderness. Physical exam General: Alert, Oriented x3, Cooperative. BMI 30.4 kg/m? HEENT: Atraumatic, PERRLA, EOMI, Normocephalic. Mild puffiness of the face. Oral: No Gingival or Mucosal Lesions/ Ulcerations Neck: Supple, No JVD, Negative Carotid Bruits Chest wall/Lungs: Air entry diminished in bilateral lung bases. No crepitation/rhonchi Cardiovascular: Regular rate and rhythm, Normal S1,S2, No M/G/R Abdomen: Bowel Sounds Present, Soft, Non Tender, ascites improving. Mild ascites. : No dysuria. No renal angle tenderness. No suprapubic tenderness. Extremities: Leg edema improved on Lasix capillary Refill Less than 3 Seconds Skin: Subcutaneous deep irregular ragged margin open wound/ulcer over the right dorsum of hand. Multiple scratches on the dorsal aspect of right forearm Musculoskeletal: Right hand has Eric wrap bandage. Swelling of right hand and forearm has resolved. Patient can make full fist. The superficial scabs are held. Superficial wound also healing. Neurological: Cranial nerves II-XII grossly intact, DTR 2+/4. No acute focal neurological deficit. Psych/Mental Status: Flat affect Weight / BMI Weight Weight: 184 lb 6.385 oz Body Mass Index (BMI) 28.8 ABG / Lab / Microbiology Data 01/07/25 04:52 01/07/25 04:52 Microbiology: Microbiology 01/04/25 16:30 Bite - Hand Gram Stain - Final 01/04/25 16:30 Bite - Hand Wound Culture - Preliminary Gram negative organism 01/04/25 16:30 Bite - Hand Anaerobic Culture - Preliminary Checking for anaerobes, further studies to follow. 01/04/25 16:30 Urine, Clean Catch Urine Culture - Final Culture exhibits no growth. 01/04/25 14:03 Blood Culture (Wb) - Left Hand Blood Culture - Preliminary No growth in 48 hours. D/C Instructions Discharge Diet: 2000 mg Sodium Diet Weight Bearing Status: Weight bearing as tolerated Call your doctor if you observe: Fever of 101 or Higher, Coldness, Increased Pain, Numbness or Tingling, Change in Color, Inability to urinate, Inability to have a bowel movement, Shortness of breath, Dizziness, Fainting spells, Swelling in the ankles, Chest pain, Prolonged hiccupping, Increased palpitations (irregular heartbeat) and Calf discomfort DC O2, CPAP, BIPAP Needs Home O2 Discharge instructions: No When: IN 2 WEEKS Meaningful Use Info Meaningful Use Meaningful Use Diagnoses (Choose all that apply): None applicable Ischemic Stroke Statin Dosing Therapy Reference: STATIN DOSE THERAPY REFERENCE: * Patients > 75 years receive moderate or high dose statin therapy. * Patients 75 years or YOUNGER should receive HIGH intensity statin dose unless contraindicated. You will be required to document reason for non-treatment if statin daily dose does not meet guidelines. HIGH DOSE STATIN THERAPY DAILY Atorvastatin > than or = to 40 mg Rosuvastatin > than or = to 20 mg Amlodipine + Atorvastatin > than or = to 2.5/40 mg Ezetimibe + Simvastatin 10/80 mg Simvastatin 80mg Discharge Plan Admission Admit Date/Time: 01/04/25 10:25 Primary Reason for Your Visit: Cat bite with complicated cellulitis and deep tissue infection Attending Provider: Kale Cole Primary Care Provider: Susie Betancourt Consulting Providers: Donnie Medel Instructions Additional Instructions / Restrictions: PLASTIC SURGERY DISCHARGE INSTRUCTIONS Instructions for My Care at Home or Healthcare Facility Do not, however, hesitate to call if you have any questions or concerns. Splint Care/Dressing Care/Wound Care Continue elevation of the hand at home as able. Daily Dial soap soaks and twice daily neosporin/band aid to the abrasions on the dorsal wrist. ? Activities Avoid lifting, pushing, or pulling anything over [address] or operate heavy machinery within 24 hrs of surgery or while taking narcotic pain medication.? Pain Control/Medications Pain medication may cause some lethargy, nausea, and or constipation. You should not drive/operate dangerous machinery while taking these medications. If these or other symptoms become significantly problematic, please your surgeon's office. If prescribed oral antibiotics (Keflex, Clindamycin, or others), please take prescription for full duration as instructed. You should not have any pills remaining once completed (refills are written for your convenience should the course need to be extended, but generally they are not required). Diet (what I can eat): Resume normal diet Follow up You will be seen (most likely) 1 to 2 weeks after surgery depending on the procedure. Follow-up appointment reminders:? (A list of any scheduled appointments is at the end of this document)? At your earliest convenience, please call [phone] to confirm/schedule a follow-up appointment with me in clinic. When to call your surgeon: If any signs of surgical site infection develop: redness, pus, pain, increased swelling or foul odor at the incision site, fever, cold and clammy skin, or confusion. Consistent temperature above 101?F (38.3?C). The affected area gets swollen or much more painful. You have excessive bleeding from surgical site (soaking through). If you experience difficulty breathing and/or shortness of breath, seek immediate medical attention. If experiencing any of the above complications or if you have any questions, call [phone] Follow-up his primary GI doctor Dr. Fisher in [place] for cirrhosis. Discharge Orders/Prescriptions Prescriptions: New furosemide 40 mg Tablet 40 mg PO DAILY 30 Days Qty: 30 0RF sennosides-docusate sodium [Stimulant Laxative Plus] 8.6-50 mg Tablet 2 tab PO BID PRN (Reason: Constipation) Qty: 0 0RF spironolactone 25 mg Tablet 37.5 mg PO DAILY 30 Days Qty: 45 0RF Rx Instructions: Hold for serum potassium more than 5.0 amoxicillin-pot clavulanate 875-125 mg tablet 1 tab PO BID 6 Days Qty: 12 0RF Continued diazepam 5 mg tablet 5 mg PO DAILY PRN PRN (Reason: ANXIETY) ondansetron 4 mg tablet,disintegrating 4 mg PO Q8H PRN PRN (Reason: Nausea) Qty: 10 0RF omeprazole 20 mg capsule,delayed release(DR/EC) 20 mg PO DAILY metoprolol succinate 25 mg tablet extended release 24 hr 25 mg PO BID oxycodone 10 mg tablet 10 mg PO 4X/DAY PRN PRN (Reason: pain) albuterol sulfate [Ventolin HFA] 90 mcg/actuation HFA aerosol inhaler 2 puff inhalation Q8H PRN (Reason: bronchospasm) cholecalciferol (vitamin D3) 50 mcg (2,000 unit) capsule 50 mcg PO DAILY ferrous gluconate 240 mg (27 mg iron) tablet 240 mg PO DAILY magnesium oxide 400 mg magnesium tablet 400 mg PO DAILY Discontinued furosemide 20 mg tablet 20 mg PO DAILY Referrals / Follow Up: Susie Betancourt MD [Primary Care Provider] - Donnie Medel MD [Med Staff - Active Staff] - (Follow-up on January 11.) Disposition Disposition (needs filled in before D/C Order can be placed): Home, Self Care Charges/Coding Visit Charges Inpatient E&M: 97314 Disch Hosp >30min
== END 2025-01-08 11:20 | disposition home or self-care (01) | DRG 605 ==
LOC: ED 09:22 → MS3 10:57
PROVIDERS: Admitting Provider Internal Medicine; Emergency Provider Emergency Medicine; PCP Internal Medicine; Visit Provider Internal Medicine
DX: S61.451A Open bite of right hand, initial encounter (principal); L03.113 Cellulitis of right upper limb; K70.31 Alcoholic cirrhosis of liver with ascites; N18.31 Chronic kidney disease, stage 3a; I12.9 Hypertensive chronic kidney disease with stage 1 through stage 4 chronic kidney disease, or unspecified chronic kidney disease; F10.10 Alcohol abuse, uncomplicated; F17.210 Nicotine dependence, cigarettes, uncomplicated; M79.89 Other specified soft tissue disorders; Z79.899 Other long term (current) drug therapy; W55.01XA Bitten by cat, initial encounter
CPT/HCPCS: 36415; 73130; 80048; 81001; 82043; 82436; 82570; 83036; 84133; 84156; 84300; 85025; 87040; 87070; 87075; 87077; 87086; 87186; 87205; 87640; 93005; 97110; 97166; 97802; 99284; 99406; A4216; J0295